=== PATIENT | female | born 1935 | race Caucasian/White ===

== ENCOUNTER 2018-06-30 01:09 | Inpatient (IN) | payer MEDICARE, OTHER ==
[~2018-06-30] VITALS: Ht 157.5 cm; Wt 111.1 kg
[~2018-06-30 01:09] MED LIST: ACET325 PO; ALBU90OI INH; ALLO100 PO; ALUMAG30SU PO; AMLO10 PO; AMLO5 PO; AMOCLA875 PO; AMPI500 PO; ASCO500 PO; Allopurinol100 MG PO; BUTRANS1 EAC1 TOP; Baclofen20 MG PO; Budeprion Sr150 MG PO; CALCAVITD PO; CEPH500 PO; CHOL10002 PO; CIPR500 PO; CLIN300 PO; CLOB.05TC TOP; COLL250TO TOP; CRANBERRY250 MG PO; Celebrex200 MG PO; Cranberry300 MG PO; DIPH50 PO; DOCU100 PO; DOXY100T53 PO; Econazole Nitra15 GM TOP; FERR325 PO; FEXPSEER PO; FLUC150A PO; FURO40 PO; Florastor250 MG PO; GABA300 PO; GABA600 PO; GUAI600T33 PO; HYDCHL12.5 PO; IBUP400 PO; IPRA.03NI; Ipratropium Bro30 ML; LEVFLO250 PO; LEVFLO500 PO; LEVO750 PO; MAGOXI400 PO; METO25ER PO; METR500 PO; MULVIT PO; MULVITMIND PO; Micro-K10 MEQ PO; Milk Of Ma400 MG/5 M PO; NITR100CA PO; NYST100P TOP; Nystatin15 GM TOP; OMEP20ER PO; OXYC5 PO; OXYM.05NI; POTCHL10ER PO; PREDNICARBATE TOP; Prilosec Otc20 MG PO; QUET25 PO; SACC250C PO; SERT100 PO; SERT50 PO; SPIR50 PO; SUCR1 PO; Synthroid/Lev0.05 MG PO; TRAM50 PO; TRAN4 PO; VITAMIN D-32000 UNIT PO; VOLTAREN TOP; Voltaren100 GM TOP; XARELTO15 MG PO; Zantac150 MG PO
[2018-06-30 02:40] LABS: Alanine Aminotransfer (ALT/SGP 24 U/L (12-78); Albumin, Blood 2.8 g/dL (3.4-5.0); Albumin/Globulin Ratio 0.6 (0.8-1.8); Alk Phos 96 U/L (50-136); Anion Gap 8 mmol/L (6-16); Aspartate Aminotrans (AST/SGOT 20 U/L (12-37); Blood Urea Nitrogen 18 mg/dL (8-24); CO2, Blood 26 mmol/L (21-32); Calcium, Blood 9.8 mg/dL (8.5-10.1); Chloride, Blood 102 mmol/L (98-108); Globulin, Blood 4.5 g/dL (2.2-4.0); Glomerular Filtration Rate >60 (60-); Glucose, Blood 152 mg/dL (70-99); Potassium, Blood 4.5 mmol/L (3.5-5.5); Sodium, Blood 136 mmol/L (136-145); Total Protein, Blood 7.3 g/dL (6.4-8.2); Troponin I <0.015 ng/mL (0.000-0.040)
[2018-06-30 02:58] LABS: BASOPHILS ABSOLUTE AUTO 0.05 K/mm3 (0.00-0.23); BASOPHILS PERCENT AUTO 0 % (0-2); EOSINOPHILS ABSOLUTE AUTO 0.08 K/mm3 (0.00-0.68); EOSINOPHILS PERCENT AUTO 0 % (0-6); Hematocrit 44.1 % (33.0-51.0); Hemoglobin 14.3 g/dL (11.5-16.0); IMMATURE GRAN ABSOLUTE AUTO 0.36 K/mm3 (0.00-0.10); IMMATURE GRAN PERCENT AUTO 2 % (0-1); LYMPHOCYTES ABSOLUTE AUTO 1.73 K/mm3 (0.84-5.20); LYMPHOCYTES PERCENT AUTO 9 % (21-46); MONOCYTES ABSOLUTE AUTO 1.47 K/mm3 (0.16-1.47); MONOCYTES PERCENT AUTO 8 % (4-13); Mean Corpuscular HGB Conc 32.4 g/dL (31.5-36.5); Mean Corpuscular Volume 96 fL (80-100); NEUTROPHILS ABSOLUTE AUTO 15.79 K/mm3 (1.96-9.15); NEUTROPHILS PERCENT AUTO 81 % (41-73); Platelet Count 352 K/mm3 (150-400); RDW Standard Deviation 46.3 fL (35.1-46.3); Red Blood Cell Count 4.61 M/mm3 (3.80-5.20); White Blood Cell Count 19.48 K/mm3 (4.00-11.30)
[2018-06-30 03:31] LABS: Source, Urine Urostomy Bag
[2018-06-30 03:33] LABS: Appearance, Urine Turbid (Clear); Bilirubin, Urine Neg (Neg); Blood, Urine 4+ (Neg); Color, Urine Brown (P-Yellow); Glucose Qualitative, Urine Neg (Neg); Ketones, Urine 1+ (Neg); Leukocyte Esterase, Urine 3+ (Neg); Nitrite, Urine Pos (Neg); Protein, Urine 3+ (Neg); Urobilinogen, Urine 1+ (Normal)
[2018-06-30 03:39] LABS: Bacteria Many /hpf; Squamous Epithelial Cells Not Seen /hpf (Few)
[2018-06-30 03:40] LABS: Triple Phosphate Crystals Few /hpf
[2018-06-30] MEDS ORDERED: OXYC5 PO (05:23)
--- NOTE | 2018-06-30 05:59 | NUR ---
ADMIT/SUMMARY PT ARRIVED TO ICU 10 AT 0410 VIA ER BED. PT IS AWAKE, ALERT, AND ORIENTED, BUT FORGETFUL. PT DENIES PAIN, NAUSEA, OR SOB AT THIS TIME. PT WITH HX OF PARAPLEGIA AND CHRONIC SUPRA PUBIC CATH. PT ON 4L O2 NC. VITAL SIGNS STABLE, PT IN A FIB WITH RATE CONTROLED WITH CARDIZEM GTT AT 15 MG/HR. NS STARTED AT 75 ML/HR. SUPRA PUBIC CATH REPLACED WITH NEW CATHETER. PT WITH NO MOVEMENT OR SENSATION FROM THE HIPS DOWN. PT WITH FOOT BOOTS/HEEL PROTECTORS ON. PT WITH MULTIPLE WOUNDS, ABRASIONS, AND REDDENED AREAS. SEE WOUND PHOTOS IN CHART FOR MORE INFO. PT DAUGHTERS IN AT BEDSIDE. WILL CONTINUE TO MONITOR AND REPORT OFF TO ONCOMING RN.
[2018-06-30 06:52] LABS: Adenovirus Not Detected (NOT DETECT); Bordetella pertussis Not Detected (NOT DETECT); Chlamydophila pneumoniae Not Detected (NOT DETECT); Coronavirus 229E Not Detected (NOT DETECT); Coronavirus HKU1 Not Detected (NOT DETECT); Coronavirus NL63 Not Detected (NOT DETECT); Coronavirus OC43 Not Detected (NOT DETECT); Human Metapneumovirus Not Detected (NOT DETECT); Human Rhinovirus/Enterovirus Not Detected (NOT DETECT); Influenza A Not Detected (NOT DETECT); Influenza A/2009-H1 Not Detected (NOT DETECT); Influenza A/H1 Not Detected (NOT DETECT); Influenza A/H3 Not Detected (NOT DETECT); Influenza B Not Detected (NOT DETECT); Mycoplasma pneumoniae Not Detected (NOT DETECT); Parainfluenza Virus 1 Not Detected (NOT DETECT); Parainfluenza Virus 2 Not Detected (NOT DETECT); Parainfluenza Virus 3 Detected (NOT DETECT); Parainfluenza Virus 4 Not Detected (NOT DETECT); Respiratory Syncytial Virus Not Detected (NOT DETECT)
--- NOTE | 2018-06-30 09:20 | NUR ---
ASSUMED CARE OF PT @ 0700. PT LYING IN BED WATCHING TV. PT ALERT AND ORIENTED. HEART SOUNDS IRREGULAR. HEART MONITOR SHOWED IRREGULAR RYTHMN. PT ON 4L O2. LUNG SOUNDS DIMINISHED ALL OVER, WITH EXPIRATORY RUB R LUNG. PT HAS A NONPRODUCTIVE WET COUGH. GI WNL. SUPRAPUBIC CATHETER CHANGED DUE TO LACK OF DRAINAGE. URINE THICK, DARK, FOWEL SMELLING WITH SEDIMENT. VARIOUS WOUNDS ON PT TOES. VARIES BRUSING ON PT ARMS. RED AREA ON L BUTTOCK. PT C/O PAIN IN L ARM. PT FRIENDLY AND COOROPERATIVE. PT IS ANXIOUS AND REPEATIVLY ASKS TO CALL HER DAUGHTER. WILL CONTINUE TO MONITOR, BED IN LOWEST POSITION, CALL LIGHT WITHIN REACH.
[2018-06-30 10:45] LABS: Source, Urine Catheter
[2018-06-30 11:11] LABS: Appearance, Urine Hazy (Clear); Bilirubin, Urine Neg (Neg); Blood, Urine 5+ (Neg); Color, Urine Yellow (P-Yellow); Glucose Qualitative, Urine Neg (Neg); Ketones, Urine Neg (Neg); Leukocyte Esterase, Urine 3+ (Neg); Nitrite, Urine Neg (Neg); Protein, Urine 3+ (Neg); Urobilinogen, Urine NORM (Normal)
[2018-06-30 11:29] LABS: Red Blood Cells, Urine 50-100 /hpf (0-2)
[2018-06-30 11:30] LABS: Bacteria Mod /hpf; Squamous Epithelial Cells Mod /hpf (Few)
--- NOTE | 2018-06-30 15:55 | NUR ---
TRANSFER NOTE RESPIRATORY AND CARDIAC STATUS UNCHANGED. DILTIAZEM GTT CONTINUES TO INFUSE @ 10ML/HR (DECREASED FROM 15ML/HR). HR 80S, AFIB. SUPRAPUBIC CATHETER CHANGED TO 18F LATEX-FREE CATH, DRAINING WELL. UA SENT TO LAB PER PROTOCOL. SEEN BY PMD. NEW DOCTORS ORDERS RECEIVED. PCU BED ASSIGNMENT RECEIVED, REPORT GIVEN TO ACCEPTING RN. WILL TRANFER PATIENT VIA BED. CALL PLACED TO DAUGHTER FOR NOTIFICATION.
--- NOTE | 2018-06-30 16:45 | NUR ---
TRANSFER NOTE PT RECEIVED FROM ICU. TRANSFERED TO BED. C/O 07/26 NECK / SHOULDER / ARM PAIN, MEDICATED WITH PRN PAIN MEDS. PT STATES PAIN MEDS HELPED. CARDIZEM GTT CONTINUED AT 10 ML/HR, AFIB RATE 80s ON TELEMETRY, WILL CONTINUE TO MONITOR.
[2018-07-01 03:53] LABS: Base Excess Venous 0 mmol/L; Bicarbonate Venous 24.1 mmol/L (24.0-30.0); PCO2 Venous 38.9 mmHg (38-42); PO2 Venous 45.7 mmHg (38-42); pH Blood Venous 7.41 (7.34-7.37)
[2018-07-01 04:09] LABS: BASOPHILS ABSOLUTE AUTO 0.02 K/mm3 (0.00-0.23); BASOPHILS PERCENT AUTO 0 % (0-2); EOSINOPHILS ABSOLUTE AUTO 0.01 K/mm3 (0.00-0.68); EOSINOPHILS PERCENT AUTO 0 % (0-6); Hematocrit 43.6 % (33.0-51.0); Hemoglobin 13.9 g/dL (11.5-16.0); IMMATURE GRAN PERCENT AUTO 4 % (0-1); LYMPHOCYTES ABSOLUTE AUTO 1.22 K/mm3 (0.84-5.20); LYMPHOCYTES PERCENT AUTO 11 % (21-46); MONOCYTES ABSOLUTE AUTO 0.29 K/mm3 (0.16-1.47); MONOCYTES PERCENT AUTO 3 % (4-13); Mean Corpuscular HGB 30.2 pg (26.0-34.0); Mean Corpuscular HGB Conc 31.9 g/dL (31.5-36.5); Mean Corpuscular Volume 95 fL (80-100); Mean Platelet Volume 9.9 fL (9.1-12.4); NEUTROPHILS ABSOLUTE AUTO 8.92 K/mm3 (1.96-9.15); NEUTROPHILS PERCENT AUTO 82 % (41-73); Platelet Count 331 K/mm3 (150-400); RDW Coefficient Variation 12.9 % (11.7-14.2); RDW Standard Deviation 44.9 fL (35.1-46.3); White Blood Cell Count 10.86 K/mm3 (4.00-11.30)
[2018-07-01 04:32] LABS: Anion Gap 7 mmol/L (6-16); Blood Urea Nitrogen 22 mg/dL (8-24); Bun/Creatinine Ratio 41.8 (12.0-20.0); CO2, Blood 26 mmol/L (21-32); Calcium, Blood 9.8 mg/dL (8.5-10.1); Chloride, Blood 105 mmol/L (98-108); Creatinine, Blood 0.53 mg/dL (0.40-1.00); Glomerular Filtration Rate >60 (60-); Glucose, Blood 147 mg/dL (70-99); Potassium, Blood 4.6 mmol/L (3.5-5.5); Sodium, Blood 138 mmol/L (136-145)
[2018-07-01 04:39] LABS: Free Thyroxine 1.35 ng/dL (0.70-1.60); Triiodothyronine, Free 1.23 pg/mL (2.18-3.98)
--- NOTE | 2018-07-01 05:23 | NUR ---
ASSSUMED CARE FROM ALEX RUSH AND SN SARITA AT APPROXIMATELY 1900. PT ALERT AND ORIENTED TO SELF AND FAMILY, W/ FAMILY PRESENT UPON ORIENTING TO THE UNIT; BECOMING CONFUSED AT TIMES; 4 LPM NC; AFIB W/ HR IN 80'S W/ CARDIZEM DRIP; PT'S CHRONIC SUPRAPUBIC CATHETER IS PATENT AND DRAINING PB URINE; PT RESTED EASILY IN BETWEEN DISRUPTIONS; PT HAS NUMEROUS REDDENED AREAS, REPOSITIONING, AND BARRIER CREAMS USED TO PROTECT FURTHER BREAKDOWN; WILL CONTINUE TO ASSESS AND MONITOR UNTIL HANDOFF TO DAY SHIFT RN.
--- NOTE | 2018-07-01 06:21 | NUR ---
ASSSUMED CARE FROM ALEX RUSH AND SN SARITA AT APPROXIMATELY 1900. PT ALERT AND ORIENTED TO SELF, FAMILY, AND ; BECOMING CONFUSED AT TIMES; 4 LPM NC; AFIB W/ HR IN 80'S W/ CARDIZEM DRIP; PT PARAPLEGIC; HOME WATSON BOOTS IN PLACE; PT'S CHRONIC SUPRAPUBIC CATHETER IS PATENT AND DRAINING PB URINE; LISSETT VISITED AND WAS VERY ATTENTIVE; IV INFILTRATED AT SHIFT CHANGE, NEW IV PLACED BY ICU CHARGE NURSE ;PT RESTED EASILY IN BETWEEN DISRUPTIONS; PT HAS NUMEROUS REDDENED AREAS, REPOSITIONING, AND BARRIER CREAMS USED TO PROTECT FURTHER BREAKDOWN; CALL LIGHT IN PLACE; BED IN LOWEST POSITION; WILL CONTINUE TO ASSESS AND MONITOR UNTIL HANDOFF TO DAY SHIFT RN.
--- NOTE | 2018-07-01 13:27 | NUR ---
Pleasant, conversant lady who is often forgetful of details and ongoing events in detail. ONly specific needs and requests this morning were regarding repositioning and changing her pillows out. Heart rate has been controlled under 100 bpm, and the cardizem gtt was turned off 90 minutes after the administration of oral metoprolol, and at that time her heart rate was 95 bpm, afib. At present her rate is holding at 99 bpm, still a fib.
--- NOTE | 2018-07-02 02:05 | NUR ---
ASSUMED CARE OF PATIENT AT APPROXIMATELY 1915 FROM IRKKI Julio RN. PATIENT ALERT AND ORIENTED TO SELF, FAMILY AND ; FORGETFUL AT TIMES. PATIENT REPORTS CHRONIC PAIN IN BACK, SHOULDERS AND NECK FROM REPOSISTIONING. PATIENT ON AIR MATTRESS BED; REFUSES TO BE TURNED AT TIMES; REPORTS SHE FEARS SHE MAY MESS UP HER BACK MORE. PATIENT HAS CHRONIC NUMBNESS AND TINGLING; PARAPALEGIC; HOME BOOTS ON FOR HEEL PROTECTION; FOOT HALO IN PLACE. PATIENT HAS EXCORIATIONS ON BACK; GROIN AND COCCYX. AFIB ON TELE; HEART RATE AVERAGING UP TO 115; OXYGEN SATURATION ABOVE 90% ON HOME DOSE OF O2 4LPM VIA OXYMIZER. PIV S/L. PATIENT CURRENTLY RESTING IN BED; CALL LIGHT IN REACH; BED IN LOWEST POSISTION; WILL CONTINUE TO MONITOR AND ASSESS UNTIL END OF SHIFT.
--- NOTE | 2018-07-02 06:30 | NUR ---
NO ACUTE CHANGES TO REPORT. VSS. PATIENT SLEPT APPROXIMATELY 8 HOURS LAST NIGHT. HEART RATE 90-100'S. WILL CONTINUE TO MONITOR AND ASSESS UNTIL END OF SHIFT.
--- NOTE | 2018-07-02 18:54 | NUR ---
PT HAD A GOOD DAY, AFFECT WAS PLEASANT, SHE IS ABLE TO EXPRESS NEEDS AND CONCERNS APPROPRIATELY. PT DAUGHTER AT BEDSIDE FOR PART OF TODAY. DR. PETER CHANGED HER ROXICODONE ORDER TO 5 MG PER PATIENT REQUEST. PT HAS DENIED PAIN T/O AND DID NOT WANT ANY PAIN MED COVERAGE DURING THE SHIFT. PT REFUSED REPOSITIONING AND EXPRESSED CONTENTMENT WITH AIR BED MOVEMENT, HELPED TO POSITION PILLOWS TO PATIENTS SATISFACTION. TRANSFER ORDER PLACED FOR PT TO GO TO MEDICAL, GAVE REPORT TO RN FOR ROOM 331.
--- NOTE | 2018-07-02 19:01 | NUR ---
PATIENT ARIVED TO UNIT IN BED AT 1855. A&O X4. DENIES ANY PAIN OR SOB. O2 @ 3.5L NC. RN WILL GIVE REPORT TO EDUCATION AND OUTREACH COORDINATOR NURSE.
[2018-07-03] MEDS ORDERED: BUPRENORPHINE1 EAC2 TD (03:24)
--- NOTE | 2018-07-03 05:42 | NUR ---
pt transferred to medical floor from pcu at shift change. pt has multiple requests and after staff spend time with her she asks to have pillows removed and repositioned again. on 4 l nc 2.5 to 3 l baseline. she is positive for Haemophilis influenza and staph aur in sputum and staph aur in blood culture. On antibiotics to treat. uses bup. transdermal patch chnge q 7 days and requests we change it. DTR to bring in patch this am as 7 days was yesterday. She took oxycodone 5 mg x 1 for co neck and back pain. has caregivers DTR and Grandson provide care. PT has paraplegia and refused q 2 hour turns. on alternating air bed to relieve pressure.
--- NOTE | 2018-07-03 16:49 | NUR ---
DRESSINGS APPLIED TO BUTTOCKS AREA SMALL SKIN BREAKDOWN NOTED UPON MORNING ASSESSMENT. MEPLIX APPLIED AND PATIENT ENCOURAGED TO ALLOW STAFF TO TURN HER Q2. NO ACUTE CHANGES .
--- NOTE | 2018-07-04 02:19 | NUR ---
PT continues to be intermittantly agitated and demanding. RN had been in room giving mucinex and PT said she dislikes turning and doesn't understand why we need to reposition her versus just slightly shifting with 1 pillow moved. She became very irritable with COSMETOLOGIST who was turning PT with second COSMETOLOGIST. She said she has not been getting attention when she requests it as soon as she requests it. Clarified that she had not requested additional turning or repositioning when this RN was in room to give oral med and had refused pain med repeatedly. Reoriented and repositioned and will medicate for pain if PT will accept rx.
[2018-07-04 04:53] LABS: BASOPHILS ABSOLUTE AUTO 0.02 K/mm3 (0.00-0.23); BASOPHILS PERCENT AUTO 0 % (0-2); EOSINOPHILS ABSOLUTE AUTO 0.09 K/mm3 (0.00-0.68); EOSINOPHILS PERCENT AUTO 1 % (0-6); Hematocrit 44.6 % (33.0-51.0); IMMATURE GRAN ABSOLUTE AUTO 0.07 K/mm3 (0.00-0.10); IMMATURE GRAN PERCENT AUTO 1 % (0-1); LYMPHOCYTES ABSOLUTE AUTO 1.89 K/mm3 (0.84-5.20); LYMPHOCYTES PERCENT AUTO 15 % (21-46); MONOCYTES ABSOLUTE AUTO 0.64 K/mm3 (0.16-1.47); MONOCYTES PERCENT AUTO 5 % (4-13); Mean Corpuscular HGB 30.4 pg (26.0-34.0); Mean Corpuscular HGB Conc 31.4 g/dL (31.5-36.5); Mean Corpuscular Volume 97 fL (80-100); Mean Platelet Volume 9.8 fL (9.1-12.4); NEUTROPHILS ABSOLUTE AUTO 9.77 K/mm3 (1.96-9.15); NEUTROPHILS PERCENT AUTO 78 % (41-73); Platelet Count 327 K/mm3 (150-400); RDW Coefficient Variation 12.7 % (11.7-14.2); RDW Standard Deviation 45.5 fL (35.1-46.3); Red Blood Cell Count 4.61 M/mm3 (3.80-5.20); White Blood Cell Count 12.48 K/mm3 (4.00-11.30)
[2018-07-04 05:34] LABS: Albumin, Blood 2.8 g/dL (3.4-5.0); Anion Gap 7 mmol/L (6-16); Blood Urea Nitrogen 31 mg/dL (8-24); Bun/Creatinine Ratio 46.1 (12.0-20.0); CO2, Blood 25 mmol/L (21-32); Calcium, Blood 9.6 mg/dL (8.5-10.1); Chloride, Blood 107 mmol/L (98-108); Creatinine, Blood 0.67 mg/dL (0.40-1.00); Glomerular Filtration Rate >60 (60-); Glucose, Blood 122 mg/dL (70-99); Magnesium, Blood 2.1 mg/dL (1.6-2.4); Phosphorus, Blood 3.5 mg/dL (2.5-4.9); Potassium, Blood 4.4 mmol/L (3.5-5.5); Sodium, Blood 139 mmol/L (136-145)
--- NOTE | 2018-07-04 18:24 | NUR ---
NO ACUTE CHANGES. PATIENT PLEASANT AND COOPERATIVE THIS SHIFT. CALL LIGTH WITHIN REACH.
--- NOTE | 2018-07-05 07:28 | NUR ---
NOC SHIFT SUMMARY PT HAS BEEN PLEASANT AND COOPERATIVE WITH CARE THIS NIGHT. HAS BEEN TURNED [id number]. VSS. NO ACUTE CHANGES NOTED THIS NIGHT. APPEARS IN NO ACUTE DISTRESS. REPORT TO ONCOMING RN.
[2018-07-05] MEDS ORDERED: CEFU500T30 PO (12:20)
[2018-07-05] MEDS ORDERED: CEPACOL SORE T1 EACH MM (12:20)
[2018-07-05] MEDS ORDERED: LIOT5 PO (12:21)
[2018-07-05] MEDS ORDERED: ALBU3IS INH (12:22)
[2018-07-05] MEDS ORDERED: PRED20 PO (12:24)
[2018-07-05] MEDS ORDERED: Zylet Eye Drops5 ML UD (12:27)
--- NOTE | 2018-07-05 19:10 | NUR ---
SHIFT SUMMARY/ DISCHARGE SUMMARY PT AXO, PLEASANT AND COOPERATIVE WITH CARE. UP WITH LIFT TO [facility]. PT DISCHARGED TO HOME WITH DAUGHTER/ CAREGIVER PRESENT. PT LEFT ROOM AT 1900 WITH TRANSPORTER PRESENT. NURSE EDUCATED DAUGHTER ABOUT DC INSTRUCTIONS. ALL QUESTIONS ANSWERED. DAUGHTER PICKED UP PRESCRIPTIONS PRIOR TO DC AND HAS THEM AT HOME.
== END 2018-07-05 18:44 | disposition home or self-care (01) | DRG 871 ==
LOC: ER 01:09 → ICUW 01:10 → PCU 16:19 → MEDS 07-02 18:27 → EDPENDDISTM 07-05 10:19 → EDPENDDISDT 07-05 10:19 → ENPENDDIS 07-05 10:19 → MEDS 07-05 18:44
PROVIDERS: Emergency Medicine; Internal Medicine; ADMIT Internal Medicine
DX: A41.01 Sepsis due to Methicillin susceptible Staphylococcus aureus (principal); J96.21 Acute and chronic respiratory failure with hypoxia; J15.20 Pneumonia due to staphylococcus, unspecified; J15.212 Pneumonia due to Methicillin resistant Staphylococcus aureus; N39.0 Urinary tract infection, site not specified; G82.20 Paraplegia, unspecified; N31.9 Neuromuscular dysfunction of bladder, unspecified; G89.29 Other chronic pain; F41.9 Anxiety disorder, unspecified; E86.0 Dehydration; Z79.891 Long term (current) use of opiate analgesic; Z86.73 Personal history of transient ischemic attack (TIA), and cerebral infarction without residual deficits; Z87.891 Personal history of nicotine dependence; Z99.81 Dependence on supplemental oxygen; I48.2 Chronic atrial fibrillation; R73.9 Hyperglycemia, unspecified; Z74.01 Bed confinement status; E66.01 Morbid (severe) obesity due to excess calories; B35.1 Tinea unguium; B96.3 Hemophilus influenzae [H. influenzae] as the cause of diseases classified elsewhere; L89.301 Pressure ulcer of unspecified buttock, stage 1
CPT/HCPCS: 36415; 51702; 71045; 80048; 80053; 80069; 81001; 82803; 82947; 83605; 83735; 83880; 84145; 84439; 84481; 84484; 85025; 87040; 87070; 87077; 87086; 87147; 87185; 87186; 87205; 87486; 87581; 87633; 87798; 93005; 93010; 94640; 94760; 94761; 96365; 96367; 99285-25; J0696; J1956; J2543; J2930; J3370; J7030; J7050; J7512

== ENCOUNTER 2018-08-12 21:38 | Inpatient (IN) | payer MEDICARE, OTHER ==
[~2018-08-12] VITALS: Ht 160 cm; Wt 129.3 kg
[~2018-08-12 21:38] MED LIST changes: +ALBU3IS INH; +BUPRENORPHINE1 EAC2 TD; +CEFU500T30 PO; +CEPACOL SORE T1 EACH MM; +FERSU300 PO; +LIOT5 PO; -NYST100P TOP; +Nyamyc15 GM TOP; +PRED20 PO; +Zylet Eye Drops5 ML UD
[2018-08-12] MEDS ORDERED: Calcium 600+D1 EAC2 PO (22:01)
[2018-08-12] MEDS ORDERED: Hair, Skin & N1 EACH PO (22:04)
[2018-08-12 22:16] LABS: BASOPHILS ABSOLUTE AUTO 0.06 K/mm3 (0.00-0.23); BASOPHILS PERCENT AUTO 0 % (0-2); EOSINOPHILS ABSOLUTE AUTO 0.03 K/mm3 (0.00-0.68); EOSINOPHILS PERCENT AUTO 0 % (0-6); Hematocrit 39.5 % (33.0-51.0); Hemoglobin 12.7 g/dL (11.5-16.0); IMMATURE GRAN ABSOLUTE AUTO 0.14 K/mm3 (0.00-0.10); IMMATURE GRAN PERCENT AUTO 1 % (0-1); LYMPHOCYTES ABSOLUTE AUTO 0.66 K/mm3 (0.84-5.20); LYMPHOCYTES PERCENT AUTO 3 % (21-46); MONOCYTES ABSOLUTE AUTO 1.18 K/mm3 (0.16-1.47); MONOCYTES PERCENT AUTO 6 % (4-13); Mean Corpuscular HGB Conc 32.2 g/dL (31.5-36.5); Mean Corpuscular Volume 93 fL (80-100); Mean Platelet Volume 9.8 fL (9.1-12.4); NEUTROPHILS ABSOLUTE AUTO 17.31 K/mm3 (1.96-9.15); NEUTROPHILS PERCENT AUTO 89 % (41-73); Platelet Count 433 K/mm3 (150-400); RDW Coefficient Variation 13.4 % (11.7-14.2); RDW Standard Deviation 46.3 fL (35.1-46.3); Red Blood Cell Count 4.24 M/mm3 (3.80-5.20); White Blood Cell Count 19.38 K/mm3 (4.00-11.30)
[2018-08-12 22:34] LABS: Alanine Aminotransfer (ALT/SGP 11 U/L (12-78); Albumin, Blood 2.3 g/dL (3.4-5.0); Albumin/Globulin Ratio 0.5 (0.8-1.8); Alk Phos 98 U/L (50-136); Anion Gap 10 mmol/L (6-16); Aspartate Aminotrans (AST/SGOT 15 U/L (12-37); Bilirubin, Total 0.5 mg/dL (0.1-1.0); Blood Urea Nitrogen 10 mg/dL (8-24); Bun/Creatinine Ratio 23.9 (12.0-20.0); CO2, Blood 26 mmol/L (21-32); Chloride, Blood 94 mmol/L (98-108); Creatinine, Blood 0.42 mg/dL (0.40-1.00); Globulin, Blood 4.4 g/dL (2.2-4.0); Glomerular Filtration Rate >60 (60-); Glucose, Blood 121 mg/dL (70-99); Potassium, Blood 4.6 mmol/L (3.5-5.5); Sodium, Blood 130 mmol/L (136-145); Total Protein, Blood 6.7 g/dL (6.4-8.2)
[2018-08-12 23:48] LABS: Source, Urine Catheter
[2018-08-12 23:51] LABS: Bilirubin, Urine Neg (Neg); Blood, Urine 2+ (Neg); Glucose Qualitative, Urine Neg (Neg); Ketones, Urine 1+ (Neg); Leukocyte Esterase, Urine 3+ (Neg); Nitrite, Urine Pos (Neg); Protein, Urine 2+ (Neg); Urobilinogen, Urine 1+ (Normal)
[2018-08-12 23:55] LABS: Appearance, Urine Turbid (Clear); Color, Urine Yellow (P-Yellow)
[2018-08-12 23:57] LABS: Amorphous Heavy (0-Heavy); Bacteria Many /hpf; Red Blood Cells, Urine 0-2 /hpf (0-2); Squamous Epithelial Cells Many /hpf (Few); White Blood Cells, Urine TNTC /hpf (0-5)
[2018-08-13 01:10] LABS: International Normalized Ratio 1.24; Prothrombin Time Results 12.9 Sec (9.7-11.5)
[2018-08-13 02:08] LABS: Hematocrit 38.4 % (33.0-51.0); Hemoglobin 12.2 g/dL (11.5-16.0); Mean Corpuscular HGB 29.8 pg (26.0-34.0); Mean Corpuscular HGB Conc 31.8 g/dL (31.5-36.5); Mean Corpuscular Volume 94 fL (80-100); Mean Platelet Volume 9.6 fL (9.1-12.4); Platelet Count 386 K/mm3 (150-400); RDW Coefficient Variation 13.3 % (11.7-14.2); RDW Standard Deviation 45.6 fL (35.1-46.3); Red Blood Cell Count 4.09 M/mm3 (3.80-5.20); White Blood Cell Count 19.69 K/mm3 (4.00-11.30)
[2018-08-13 02:22] LABS: Alanine Aminotransfer (ALT/SGP 9 U/L (12-78); Albumin, Blood 2.1 g/dL (3.4-5.0); Albumin/Globulin Ratio 0.5 (0.8-1.8); Alk Phos 87 U/L (50-136); Anion Gap 8 mmol/L (6-16); Aspartate Aminotrans (AST/SGOT 9 U/L (12-37); Bilirubin, Total 0.6 mg/dL (0.1-1.0); Blood Urea Nitrogen 9 mg/dL (8-24); Bun/Creatinine Ratio 20.2 (12.0-20.0); CO2, Blood 24 mmol/L (21-32); Calcium, Blood 8.3 mg/dL (8.5-10.1); Chloride, Blood 101 mmol/L (98-108); Creatinine, Blood 0.45 mg/dL (0.40-1.00); Globulin, Blood 4.1 g/dL (2.2-4.0); Glomerular Filtration Rate >60 (60-); Glucose, Blood 139 mg/dL (70-99); Potassium, Blood 3.9 mmol/L (3.5-5.5); Sodium, Blood 133 mmol/L (136-145); Total Protein, Blood 6.2 g/dL (6.4-8.2)
--- NOTE | 2018-08-13 08:00 | NUR ---
pt laying in bed awake a/ox3, pleasant and coopertive with care, follows commands well, denies pain at this time, lungs are course in upperfields, dim in bases, resp even and unlabored, weak cough effort, states she doesn't have the stomach muscles to give a good cough, sounds wet in the bronchial area. hrirr, tele in place running afib per monitor, see strip, +1 edema noted to b/l le, pp faint, cap refill <3sec, vs stable, afebrile, iv site is clear and patent, btx4, abd large soft nontender, voids via suprapubic cath, cath looks discolored, pt has multiple wounds, back is very red, has very strong odor, nystatin applied to yeast areas, moves upper ext unable to move lower ext or feel from the waist down, gila, call light in reach.
--- NOTE | 2018-08-13 08:02 | NUR ---
PCU ADMIT / SHIFT SUMMARY PT BROUGHT TO PCU RM 07 FROM THE ER BY SHYANN @ APPROX 0140. PT A&O X4, PLEASANT AND COOPERATIVE. PT'S DAUGHTER AND GRANDSON AT BEDSIDE. PT'S DAUGHTER IS PT'S POA, AND CAREGIVER. HISTORY PROVIDED BY PT AND DAUGHTER. PT SLID OVER FROM [place] TO PCU BED D/T PT PARAPLEGIA. PT STATES INABILITY TO FEEL ANYTHING FROM MID WASTE DOWN. SKIN BREAK DOWN NOTED TO PT'S BACK, R BUTTOCKS, GROIN, BILAT HEELS & TOES. SEE PHOTOS IN CHART. SUPRA PUBIC CATH IN PLACE DRAINING YELLOW URINE. PT'S DAUGHTER STATES CATH BEING CHANGED APPROX JULY 10, 2018. Q2H REPOSITIONING W/ MAX ASSIST BY STAFF. REPORT GIVEN TO DAY SHIFT RN.
[2018-08-13 08:34] LABS: Adenovirus Not Detected (NOT DETECT); Bordetella pertussis Not Detected (NOT DETECT); Chlamydophila pneumoniae Not Detected (NOT DETECT); Coronavirus 229E Not Detected (NOT DETECT); Coronavirus HKU1 Not Detected (NOT DETECT); Coronavirus NL63 Not Detected (NOT DETECT); Coronavirus OC43 Not Detected (NOT DETECT); Human Metapneumovirus Not Detected (NOT DETECT); Human Rhinovirus/Enterovirus Not Detected (NOT DETECT); Influenza A Not Detected (NOT DETECT); Influenza A/2009-H1 Not Detected (NOT DETECT); Influenza A/H1 Not Detected (NOT DETECT); Influenza A/H3 Not Detected (NOT DETECT); Influenza B Not Detected (NOT DETECT); Mycoplasma pneumoniae Not Detected (NOT DETECT); Parainfluenza Virus 1 Not Detected (NOT DETECT); Parainfluenza Virus 2 Not Detected (NOT DETECT); Parainfluenza Virus 3 Not Detected (NOT DETECT); Parainfluenza Virus 4 Not Detected (NOT DETECT); Respiratory Syncytial Virus Not Detected (NOT DETECT)
--- NOTE | 2018-08-13 12:44 | NUR ---
pt resting quietly, she states she is doing ok, she has been repositioned. no needs or complaints at this time. call light in reach.
--- NOTE | 2018-08-13 18:25 | NUR ---
pt has been sleeping when left undisturbed, she has been turned throughout the day. she reports she is comfortable, no needs or complaints. call light in reach.
[2018-08-13 23:23] LABS: Vancomycin, Trough 24.2 ug/mL (5.0-10.0)
[2018-08-14 03:59] LABS: BASOPHILS ABSOLUTE AUTO 0.06 K/mm3 (0.00-0.23); BASOPHILS PERCENT AUTO 1 % (0-2); EOSINOPHILS ABSOLUTE AUTO 0.27 K/mm3 (0.00-0.68); EOSINOPHILS PERCENT AUTO 3 % (0-6); Hematocrit 38.6 % (33.0-51.0); Hemoglobin 11.9 g/dL (11.5-16.0); IMMATURE GRAN ABSOLUTE AUTO 0.05 K/mm3 (0.00-0.10); IMMATURE GRAN PERCENT AUTO 1 % (0-1); LYMPHOCYTES ABSOLUTE AUTO 1.22 K/mm3 (0.84-5.20); LYMPHOCYTES PERCENT AUTO 14 % (21-46); MONOCYTES ABSOLUTE AUTO 0.74 K/mm3 (0.16-1.47); MONOCYTES PERCENT AUTO 8 % (4-13); Mean Corpuscular HGB 29.2 pg (26.0-34.0); Mean Corpuscular HGB Conc 30.8 g/dL (31.5-36.5); Mean Corpuscular Volume 95 fL (80-100); Mean Platelet Volume 9.4 fL (9.1-12.4); NEUTROPHILS ABSOLUTE AUTO 6.58 K/mm3 (1.96-9.15); NEUTROPHILS PERCENT AUTO 74 % (41-73); Platelet Count 355 K/mm3 (150-400); RDW Coefficient Variation 13.3 % (11.7-14.2); RDW Standard Deviation 46.5 fL (35.1-46.3); Red Blood Cell Count 4.08 M/mm3 (3.80-5.20); White Blood Cell Count 8.92 K/mm3 (4.00-11.30)
--- NOTE | 2018-08-14 04:25 | NUR ---
18F LATEX FREE SUPRAPUBIC CATH CHANGED USING STERILE TECHNIQUE. LIGHT COLORED YELLOW URINE NITED IN TUBING, TOLERATED WELL. WILL CONTINUE TO MONITOR.
[2018-08-14 04:37] LABS: Anion Gap 7 mmol/L (6-16); Blood Urea Nitrogen 8 mg/dL (8-24); Bun/Creatinine Ratio 20.6 (12.0-20.0); CO2, Blood 26 mmol/L (21-32); Calcium, Blood 8.8 mg/dL (8.5-10.1); Chloride, Blood 105 mmol/L (98-108); Creatinine, Blood 0.39 mg/dL (0.40-1.00); Glomerular Filtration Rate >60 (60-); Glucose, Blood 84 mg/dL (70-99); Potassium, Blood 3.5 mmol/L (3.5-5.5); Sodium, Blood 138 mmol/L (136-145); Vancomycin, Random 22.4 ug/mL
--- NOTE | 2018-08-14 06:55 | NUR ---
SHIFT SUMMARY DENIES PAIN,AT THIS TIME. SUPRAPUBIC CATH CHANGED THIS SHIFT. NO FURHTER NEEDS OR WANTS AT THIS TIME. SAFETY MEASURES IN PLACE. WILL GIVE HAND OFF TO ONCOMING SHIFT USING SBAR.
--- NOTE | 2018-08-14 14:39 | NUR ---
ISHIAL WOUND OLD WOUND DRESSING REMOVED. CALCIUM ALGINATE REMOVED. FOUL ODOR NOTED. MODERATE AMOUNT OF POOLED YELLOW COLORED DRAINAGE NOTED. PALPATED A PROXIMAL TUNNEL. WOUND SPRAYED OUT WITH WOUND REHABILITATION CASE COORDINATOR. WIPED WITH 4X4 SOAKED WITH WOUND REHABILITATION CASE COORDINATOR. GENTLY PATTED DRY WOUND WITH 4X4. PACKED WITH CALCIUM ALGINATE 1.5 PACKAGES. PT DAUGHTER PRESENT DURING WOUND CARE. SHE STARTED CRYING. STATED THAT THE AREA WAS RED WHEN PT WENT HOME FROM LAST VISIT. NO OPEN AREA NOTED. PT HAS A SELF TURNING MATTRESS WITH AIR CHABERS AND PT HAD A WRINKLE AND WAS SUNCK DOWN BETWEEN THE CHAMBERS. THATS WHEN AN OPEN AREA STARTED. CALLED Rashida CARLOS. ORDER RECEIVED FOR SURGICAL CONSULT FOR WOUND CARE. PT ALREADY HAS A CT SCAN DONE AT ADMIT. CONTINUE POT.
--- NOTE | 2018-08-14 17:37 | NUR ---
ELEVATED HR PT DEVELOPED AN ELEVATED HR. SHE HAS CHRONIC AFIB AND TAKES TOPROL XL 75MG DAILY AT HOME. NOT ORDERED. CALLED Rashida CARLOS ORDERS RECEIVED. CONTINUE POT./
[2018-08-14 21:17] LABS: Vancomycin, Random 14.2 ug/mL
--- NOTE | 2018-08-15 07:18 | NUR ---
END OF SHIFT SUMMARY NO ACUTE CHANGES THIS SHIFT. COCCYX ULCER CLEANED THOROUGHLY WITH SKINTEGRITY SPRAY, CALCIUM ALGINATE PACKED INSIDE. MEPILEX PLACED OVER THE TOP. VSS. PT HAS BEEN REPOSITIONED Q2 ON THE [place]. WAS NOT ABLE TO OBTAIN POWERGLIDE THIS SHIFT. DAY NURSE AWARE. MRI SCREEN FAXED TO IMAGING. PT HAS BEEN COOPERATIVE WITH CARE THIS SHIFT. VERY PLEASANT. COOPERATIVE WITH TURNS. FEET REMAIN IN PADDED BOOTS. SUPRAPUBIC CATHETER CLEANED. CALL LIGHT WITHIN REACH. BED IN LOWEST POSITION. REPORT GIVEN TO ONCOMING NURSE.
--- NOTE | 2018-08-15 11:15 | NUR ---
TO MRI CALLED PT DAUGHTER WHO STATED THAT PT IS USUALLY PRE MEDICATED WITH VALIUM FOR MRI. CALLED DR CARLOS. ORDER RECEIVED. MEDICATED WITH PT AGREEMENT FOR MRI. CONTINUE POT.
--- NOTE | 2018-08-15 15:00 | NUR ---
NOTE PT RESTING QUIETLY. AFIB. RATE CONTROLLED. VSS. PT FAMILY LEFT AWHILE AGO. PT DID NOT TOLERATE MRI D/T NOT BEING ABLE TO HOLD HER ARMS ABOVE HER HEAD WHILE IN THE TUBE. NOTIFIED DR RODRÍGUEZ. HE GAVE GUIDEANCE. CALLED Rashida CARLOS. ORDER RECEIVED FROM ORTHO CONSULT POSSIBLE BONE BIOPSY. CONSULT CALLED TO DR DIGGS. NO RESPONCE YET. WOUND CARE DONE EARLIER MORNING. CHECKED DRESSING CD&1 AT 1400 DURING TURN. FOOT BOOTS ON BILATERAL LE. FEET PROPPED WITH PILLOWS TO KEEP LEGS FROM ROLLING SIDE WAYS. CONTINUE POT.
[2018-08-15 21:51] LABS: Vancomycin, Random 15.4 ug/mL
--- NOTE | 2018-08-16 05:53 | NUR ---
END OF SHIFT SUMMARY NO ACUTE CHANGES THIS SHIFT. VSS. HAS BEEN TURNED Q2H. WOUND CLEANSED WITH 4X4, SKINTEGRITY, PACKED WITH CALCIUM ALGINATE AND COVERED WITH MEPILEX. WOUND PRESENT LESS ODIFEROUS AND WITH LESS DRAINAGE THIS SHIFT THAN LAST. PT HAS HAD SOME ABD PAIN, MEDICATED PER EMAR AND REPOSITIONED. PT ALSO GIVEN FOOD SHE THOUGHT IT COULD HAVE BEEN HUNGER PAINS. PT REMAINS IN HEEL PROTECTING BOOTS. PT HAS CONTINUED TO BE COOPERATIVE WITH CARE. WILL CONTINUE TO MONITOR PT UNTIL SHIFT CHANGE. CALL EULA BURRIS. SIDERAILS UP.
--- NOTE | 2018-08-16 12:24 | NUR ---
PRESSURE RELIEVING MATTRESS. WAS DIRECTED BY NIK IN PURCHASING TO CONTACT "MIRANDA" AT [phone]. rEQUEST NUMBER [phone]. CONTACTED MIRANDA TO RENT A BED. BED SHOULD BE DELIVERED TODAY FROM [place].CONTINUE POT.
--- NOTE | 2018-08-16 13:43 | NUR ---
RECEIVED REPORT AT SHIFT CHANGE AND ASSUMED CARE OF PATIENT, SHE IS PLEASANT AND SITTING UP IN BED. PT STATES SHE IS FEELING "PRETTY GOOD TODAY." REPOSITIONING Q2 AND PER REQUEST. PT TOLERATES POSITIONING WELL, SHE IS ANXIOUS FOR THE BED THAT IS GOING TO BE DELIVERED TODAY. WHILE THIS RN IS IN THE ROOM, PT STATES SHE FEELS REALLY FULL BECAUSE SHE ATE TOO MUCH LUNCH AND IT IS MAKING IT HARD TO BREATHE. OFFERED PRN O2 AT 2LPM, PT ACCEPTED. O2 SAT >97%, HOB ELEVATED, PT EXPRESSED GRATITUDE AND SAID, "I GET REALLY ANXIOUS, THAT JUST HAPPENS, I CAN'T HELP IT." ENCOURAGED PT THAT IT WAS OKAY AND WILL CHECK BACK SOON FOR O2 RECHECK. CALL LIGHT AND PHONE AT EASY REACH, BED LOCKED AND LOW.
--- NOTE | 2018-08-16 17:32 | NUR ---
Initial Visit: Consult received for advanced care planning and symptom managment. History of deconditioning, possible aspiration, chronic pain, paraplegia, obesity, decub ulcer. Pt is alert, oriented, very pleasant and even full of tennille. She laughs frequently during the conversation. She reports that her family is full of life and love. She fills her house with these things. "If anyone is grumpy, they have to go to their room. Thats how we keep peace." She shares the story of her paraplegia. How difficult it was to wake up post op without the use of her legs. She states that she felt many challenging emotions, but finally came to the conclusion that "God still has me here for a reason." She has placed a life philosophy on "gratitude." She is experiencing a lot of anxiety - much more than her usual baseline worries. She is experiencing racing thoughts, intrusive thoughts, and ruminating thoughts. She has never taken a medication for anxiety before, but would be willing to try this now due to the severity of her anxiety. She is not sleeping well because of it. Reviewed anti anxiety medications, risk and benefit. Updated nurse on conversation, call placed to Dr. Stroud. She will review the chart, see if this pt is appropriate to medicate for anxiety. Will remain available; follow up for medication efficacy if new medication ordered.
--- NOTE | 2018-08-16 18:30 | NUR ---
PT HAD A GOOD DAY, SHE IS VERY TENDER WITH TURNING AND ESPECIALLY WITH CLEAN UP FROM BM'S AND REPACKING WOUND. DURING BATH TODAY TREATED HEELS AND FEET/ANKLES WHERE HER BOOTS ARE RUBBING HER SKIN. PLACED MEPILEX BANDAGES FOR PROTECTION AND COMFORT. PACKED DECUB ULCER WITH CALCIUM ALGINATE AND COVERED WITH MEPILEX. PT REPORTS SOME ANXIOUSNESS TO ALEX STEINBERG, SHE OBTAINED ORDER FOR JADON TO START TONIGHT. WILL CONTINUE TO MONITOR PATIENT AND GIVE REPORT TO NOC RN. BED LOCK AND LOW, HOB ELEVATED, CALL LIGHT WITHIN EASY REACH.
--- NOTE | 2018-08-17 05:27 | NUR ---
END OF SHIFT SUMMARY NO ACUTE CHANGES THIS SHIFT. VSS. COCCYX ULCER CLEANED WITH SKINTEGRITY, PACKED WITH CA ALGINATE. COVERED WITH PORROUS DRESSING TO ALLOW FOR AIRFLOW VIA SPECIALIZED WOUND BED. BM X 2 THIS SHIFT, CLEANED. NEW BED ARRIVED VIA [employer]. S NURSE AND OTHER STAFF MEMBERS ORIENTED TO BED. PT TRANSFERRED TO IT, BEAD TECHNOLOGY TURNED ON. BED BENEATH ULCER CONSTANTYL IN MOTION. PT STILL BEING TURNED IT IS UNKNOWN IF THIS IS REQUIRED WITH THIS BED. DR CARLOS ORDERED FLEXISEAL FOR THIS RN DUE TO LOOSE STOOLS AND WOUND CLEANLINESS. PT HAS POOR SPHINCTER TONE, FLEXISEAL INSERTION UNSSUCESFUL X 3 ATTEMPTS. OPTED TO CONTINUE TO CHECK FOR BM'S FREQUENTLY. PT HAS BEEN ANXIOUS REGARDING HOPITAL STAY, HER PROGRESS, AND THE NEW BED. MEDICATED PER EMAR. THIS NURSE SAT AND TALKED WITH PT REGARDING HER ANXIETY. WILL CONTINUE TO MONITOR PT UTIL SHIFT CHANGE. CALL LIGHT WITHIN REACH. BED IN LOWEST POSITION.
--- NOTE | 2018-08-17 14:22 | NUR ---
CALLED DR. MERCHANT CELL PHONE, SURGICAL ROOM STAFF ANSWERED AND RECEIVED MESSAGE FOR CONSULT. PLACED DR. MERCHANT NAME ON PATIENT FILE FOR CONSULT. STATED THAT CONSULT MAY NOT BE POSSIBLE UNTIL LATER TODAY (08/17) OR TOMORROW (08/18) DUE TO COMPLEX CASE IN OPERATING ROOM. UPDATED CONSULT ON FILE.
--- NOTE | 2018-08-17 19:39 | NUR ---
PT ARRIVED TO UNIT TODAY AT 1245 FROM ED. PT IS A BIT ANXIOUS AND REPORTS THAT SHE HAD SEVERE CHEST PAIN THAT HAS RESOLVED FOR THE MOST PART. DR. CUNNINGHAM DID ANGIOGRAM TODAY, PT TO SETTER HELPER AT 1525, RETURNED AT 1730. PT LYING FLAT. MONITORING FEMORAL AND RADIAL SITES. RECOVERY VITALS STABLE AND RECORDED. SOME OOZING NOTED FROM FEMORAL SITE WHEN PATIENT ARRIVED TO UNIT FROM SETTER HELPER. OOZING CONTINUED, DRESSING CHANGED, NEW DRESSING HAS SOME DRAINAGE CONTINUING. PT IS RESTING COMFORTABLY ON ROOM AIR. NO COMPLAINTS OF CHEST PAIN OR DISCOMFORT. GAVE REPORT TO NOC RNSEE.
--- NOTE | 2018-08-18 06:07 | NUR ---
SHIFT SUMMARY PT RESTING IN ROOM COMFORTABLY AT THIS TIME. PT HAD NO ACUTE CHANGES IN STATUS T/O NIGHT. PT DID C/O NAUSE T/O NIGHT AND WAS MEDICATED PER EMAR. PT REPORTED NAUSEA LESSENED ENOUGH TO GET SOME SLEEP , BUT CAME BACK THIS AM. PT WAS AGAIN MEDICATED PER EMAR FOR NAUSEA, PT DENIES ANY VOMITTING. PT WAS TURNED T/O TO CHECK FOR STOOL. PT ON SPECIALTY BED, WITH AIR THERAPY, AND TOLERATES FAIR. SPECIALTY BED REP TO COME IN TODAY TO ASSIST STAFF W/ USE OF BED. PT DENIES OTHER NEEDS AT THIS TIME. SUPRAPUBIC CATH IN PLACE, WNL, DRAINING CLOUDY YELLOW URINE W/ SOME SEDIMENT. DENIES PAIN. CALL LIGHT IN REACH.
--- NOTE | 2018-08-18 12:08 | NUR ---
AM NOTE. ASSUMED CARE OF PT APROX 0700, PT IS A&Ox4, PT WAS ADMITTED FOR SEPSIS RELATED TO A PRESSURE ULCER. PT HAS SUPERPUBIC KIMBLE THAT IS DRAINING DARK YELLOW URINE. PT HAS BEEN NPO SINCE MIDNIGHT FOR SURGICAL DEBRIEDMENT OF THE PRESSURE ULCER AND BONE BX. PT HAS C/O OF SEVERE NAUSEA SINCE NOC SHIFT, PT HAS BEEN MEDICATED PER EMAR. PT'S VS HAVE BEEN STABLE, PT DENIES PAIN AT THIS TIME. WILL CONTINUE TO MONITOR.
--- NOTE | 2018-08-18 12:15 | NUR ---
History, Chart, Medications and Allergies reviewed before start of procedure. Patient confirms NPO status and agrees with scheduled surgery. Pre-Op teaching done. Pt verbalizes understanding.
--- NOTE | 2018-08-18 12:42 | NUR ---
"DAY SURGERY RN | WATCHED PATIENT WHILE DRAGAN JOHNSON STEPPED OUT. BOTH DOCTORS SAW PATIENT. NO ISSUES. REPORT BACK TO DRAGAN JOHNSON."
--- NOTE | 2018-08-18 14:26 | NUR ---
08/18/18 1426 Julito Granados WHILE APPLYING THE WOUND VAC DRESSING, TWO SKIN TEARS WERE NOTED. SEE MD DICTATION FOR FURTHER DETAILS.
--- NOTE | 2018-08-18 18:22 | NUR ---
SHIFT SUMMARY. NO ACUTE CHANGES NOTED THIS SHIFT. PT ARRIVED BACK FROM THE OR APROX 1500. PT IS AWAKE AND ALERT ASKING FOR HER LUNCH TRAY. PT HAS C/O OF THE SPECIALTY BED/MATTRESS AND HAS REQUESTED THE AIRMATTRESS BE TURNED OFF BECAUSE SHE FEELS THAT "IT MAKES ME FEEL LIKE I AM GOING TO THROW UP." THE MATTRESS HAS BEEN TURNED OFF MOST OF THE SHIFT PER PT'S REQUEST. PT'S VS HAVE BEEN STABLE. WOUND VAC IS C/D/I WITH GOOD SUCTION. PT DENIES ANY PAIN AT THIS TIME. CALL LIGHT IN REACH, BED IS LOCKED AND LOW WILL CONTINUE TO MONITOR UNTIL REPORT IS GIVEN TO ONCOMING RN.
--- NOTE | 2018-08-19 06:49 | NUR ---
Rn summary: Pt was transferred to room 363 from PCU in specialty bed at about 2130. Pt is alert and oriented. She is very pleasant. Pt is paralyzed from the waist down. Pt had I&D of decub on inner right buttocks. Wound vac was leaking so drsg was redone. Pt is having bloody drainage. Pt has been medicated x2 with oxy 10 mg for upper abdominal pain. Vital signs are stable. Pt has red dry skin to back. Pt likes pills with applesauce. special boot to lina feet to float heals. Pt has rested latter part of shift. Pt uses call light appropriately. O2 at 2 liters for comfort PRN. Report to day shift.
--- NOTE | 2018-08-19 19:28 | NUR ---
PT AOX4 AND COOPERATIVE OF ALL CARE. PT IN BED ALL DAY AND SPECIAL SAND BED WORKING WELL. WOUN VAC HAS BEEN WORKING ALL DAY AND WAS STUCK WELL. SUPRA PUBIC CATH STOPPED WORKING END OF SHIFT AND BED WAS WET. PT ALSO HAD JUST HAD A BM AND IT WAS LOOSE. WOUND VAC WRAP WAS RUINED AND WILL BE CHANGED ON SUPERINTENDENT MAINTENANCE AIRPORTS. PT CLEANED UP AND CATH WILL BE REPLACED ON SUPERINTENDENT MAINTENANCE AIRPORTS WELL. NO DISTRESS AT THIS TIME. PT TREATED FOR PAIN PER EMAR.
--- NOTE | 2018-08-19 21:07 | NUR ---
WOUND VAC DRSG CHANGED. AREA CLEANSED. 1 WHITE PIECE AND 1 BLACK PIECE OF FOAM. FOAM TAIL OUT TO R HIP. PATENT SEAL
--- NOTE | 2018-08-20 06:42 | NUR ---
SHIFT SUMMARY PT A/O NONAMBULATORY. REDRESSED WOUND VAC OUTPUT WAS ABOUT 100 OF DARK RED. 2L O2 NC. C/O PAIN X1. SHE WAS ABLE TO SLEEP ON AND OFF T/O NOC. SUPRAPUBIC CATH STILL LEAKING. BLADDER SCAN DIDN'T SHOW ANYTHING. HAD LARGE LOOSE BM. CALL LIGHT IN REACH.
--- NOTE | 2018-08-20 16:59 | NUR ---
AOX4 AND COOPERATIVE OF CARE. HAVE BEEN TRYING TO KEEP PT DRY POSSIBLE DUE TO LEAKING CATHETHER. WAITING TO HAVE THIS CHANGED AND FIXED. DAMPNESS HAS AGAIN CAUSED WOUND VAC TO LIFT UP AND NEEDS CHANGED, BUT SUCTIONS AT THIS TIME WITH PT IN BED. PT CALLS APPRORIATELY. WILL CONTINUE TO MONITOR.
--- NOTE | 2018-08-21 07:01 | NUR ---
SHIFT SUMMARY PT A/O C/O PAIN AND MEDICATED X1. SUPRAPUBIC CATH DRAINING SMALL AMOUNTS, FLUSHED BUT WOUND NOT PULLED BACK OUT. BLADDER SCAN SHOWED 69. URINE DRAINING IN CATH TUBE AND INTO BAG. WOUND VAC DRAINING DARK RED BLOOD ABOUT 50ML ADDITIONAL FROM YESTERDAY. SHE WAS ABLE TO SLEEP T/O NIGHT. REPORT GIVEN TO DAY RN.
--- NOTE | 2018-08-21 17:18 | NUR ---
SUMMARY PT RESTING QUIETLY ON THE SPECIALTY BED, HAS BEEN PLEASANT AND COOPERATIVE WITH CARE, MED PER EMAR FOR PAIN, FAMILY HAS BEEN IN TO VISIT, PT ABLE TO TAKE HER PILLS WHOLE IN APPLESAUCE, SUPRAPUBIC CATHETER HAS DRAINED WELL T/O THE DAY, NO COMPLAINTS, VSS, NO ACUTE CHANGES, WILL CONT TO MONITOR
--- NOTE | 2018-08-22 06:35 | NUR ---
SUMMARY: A/OX3, SPECIFIES NEEDS AND PLEASANT/COOPERATIVE W/CARE. PT HAS SPECIALTY BED FOR FURTHER SBD PREVENTION. GRADUAL REPOSITIONING WAS ALSO ATTENDED TO W/ATTENDS CHECKS OFTEN. NO BM THIS SHIFT BUT CHRONIC SP CATH IS PATENT, YELLOW CLOUDY URINE OBSERVED. PT HAS WOUND VAC PRESENT TO R.ISCHIUM DECUB ULCER, DX AND SUCTION REMAIN INTACT AND SM.AMT OF OUTPUT OBSERVED. OXYCODONE RECIEVED PRN FOR GOOD RELIEF OF ABDO MUSCLE PAIN FROM STRAINING DURING REPOSITIONING. AMBER TAPIA IS SL. NO ACUTE CHANGES, VSS/AFEBRILE. WCTM AND REPORT TO DAY RN.
--- NOTE | 2018-08-22 17:01 | NUR ---
SUMMARY PT RESTING IN BED QUIETLY, PT HAS BEEN PLEASANT AND COOPERATIVE WITH CARE, PT RECIEVED A BED BATH TODAY, 2 STAFF REQUIRED, PT TOLERATED TURNING POORLY, WOUND VAC WITH A LEAK, REINFORCED, PT DECLINED TO HAVE IT CHANGED, DUE TO NOT WANTING TO TURN TO HER SIDE FOR AN EXTENDED PERIOD OF TIME AGAIN, PT HAS BEEN MED PER EMAR FOR PAIN, PT HAS HAD FAMILY IN TO VISIT, VSS, NO ACUTE CHANGES, WILL CONT TO MONITOR
--- NOTE | 2018-08-22 23:15 | NUR ---
PT HAD POWERGLIDE DX CHANGED THIS EVENING BY SHAUN TENA WHICH PROVOKED ANXIETY AND SHE HAD A DIFFICULT TIME CALMING DOWN AFTERWARD. STAFF ATTEMPTED TO REPOSITION HER, PROVIDE WARM BLANKETS, MEDICATE FOR PAIN AND PROVIDE REASSURANCE BUT SHE CONT'D TO CALL FOR ASSIST W/INABILITY SPECIFYING NEEDS. SHE KEPT REPEATING THAT SHE WAS "ANXIOUS AND DIDN'T KNOW WHAT TO DO". PT'S FAMILY VISITED AND STATED SHE BECOMES THIS WAY AT HOME WHEN DEHYDRATED OR W/WORSENING INFECTION. RN NOTED VSS AND (+)FLUID BALANCE. HOWEVER SP CATHETER OUPUT HAS TRENDED DOWNWARD W/<250 ML/SHIFT LATELY. THEY REQUESTED POSSIBLE IVF AND BENEDRYL PRN FOR ANXIETY THEY OCCASIONALLY DO AT HOME. LABWORK ALSO NOTED TO HAVE NOT BEEN DONE FOR SEVERAL DAYS. FAMILY ALSO ASKED FOR REFRESH EYE GTTS FOR DRY EYES. CONCERNS AND FINDINGS WERE RELAYED TO MIMI DOYLE WHO RX'D BENEDRYL 12.5 MG IV X1 AND INSTRUCTED TO HAVE ATTENDING DAY MD ADDRESS OTHER CONCERNS. FAMILY REPORTED PT HAD VASTLY CALMED DOWN AFTER VISITING W/HER AND THEY THOUGHT THE DX CHANGE "JUST SET HER OFF" BUT PT REQUESTED IV BENEDRYL TO HELP W/NERVES AND SLEEP. MED RECIEVED AND PT HAS BEEN RESTING COMFORTABLY W/O COMPLAINTS SINCE.
--- NOTE | 2018-08-23 01:30 | NUR ---
PT BECAME VERY UPSET AND ANGRY TOWARD STAFF WHEN REPOSITIONING WAS REQUIRED TO FIX LEAKING WOUND VAC. ALARM WAS SOUNDING AND DX REQUIRED REINFORCEMENT. 3 STAFF UTILIZED TO LOG ROLL PT AND CHANGE LINEN D/T SATURATION W/SEROSANGUINOUS DRAINAGE FROM WEAPING ISCHIUM DECUB ULCER. PT DUE TO HAVE ENTIRE DX CHANGED TODAY (08/23/18) BY ROVING FRAME TENDER. SHE REFUSED TO LET NOCTE STAFF DO IT AT THIS TIME AND IT WAS REPORTED SHE WOULDN'T ALLOW THEM TO DO IT ON DAY SHIFT EITHER. TURNING IS PAINFUL AND SEEMS TO PROVOKE ANXIETY. SHE THEN BECOMES AGITATED AND NONCOMPLIANT. WE ATTEMPTED TO EXPLAIN RATIONALE FOR TURNING AND DX REPAIR BUT SHE IGNORED STAFF, EXHIBITED VERY CONCRETE THINKING AND ACCUSED STAFF OF BEING ARGUMENTATIVE. WOUND VAC WAS CORRECTED AND SUCTION WAS AGAIN INTACT BUT SHE INSISTED WE'D DONE "IT ALL WRONG AND TO SEND SOMEONE COMPETENT NEXT TIME". WHEN ATTEMPTING TO GAIN FURTHER CLARIFICATION TO HOW WE COULD HAVE DONE BETTER SHE TOLD STAFF "TO LEAVE HER BE". CALL LIGHT WAS LEFT IN REACH AND PT APPEARED TO SETTLE DOWN WHEN LEFT ALONE.
--- NOTE | 2018-08-23 05:29 | NUR ---
PT HAS BEEN PLEASANT ONCE AGAIN AND APOLOGIZE FOR GETTING "MEAN AND AWNRY BEFORE". SHE SAID "SOMETIMES I JUST HURT SO BAD AND IT SCARES ME SO I GET UPSET". SHE WAS COOPERATIVE W/BEING MOVED UP IN THE BED AND WAS GIVEN OXYCODONE FOR ABDO "MUSCLE PAIN". RN NOTED THAT PT HASN'T HAD BM SINCE 08/19/18 AND DOESN'T HAVE BOWEL PROTOCOL MEDS RX'D EITHER. WILL ALERT DAY STAFF OF POSSIBLE NEED D/T POTENTIAL FOR CONSTIPATION GIVEN IMOBILITY AND NARCOTICS. SHE REFUSED WANTING BOWEL MEDS AT THIS TIME AND SAID SHE TYPICALLY GOES Q3-4 DAYS.
--- NOTE | 2018-08-23 05:56 | NUR ---
SUMMARY: PT HAS BEEN MOSTLY ORIENTED AND PLEASANT/COOPERATIVE THIS SHIFT BUT DID HAVE EPISODES OF ANXIETY, IRRITABILITY, NONCOMPLIANCE AND DIFFICULTY SPECIFYING NEEDS. SHE RESISTS REPOSITIONING D/T PAIN AND BECOMES UPSET W/STAFF WHEN THIS IS NEEDED. HER LINEN REQUIRED CHANGED AND HER WOUND VAC DX HAD TO BE REINFORCED D/T LEAKING. TURNING PROVOKED ANXIETY WHICH RESULTED IN HER CALLING STAFF "INCOMPETENT". STAFF ATTEMPTED TO CALM PT/EXPLAIN RATIONALE BUT IT WAS PERCIEVED ANNOYING AND ARGUMENTATIVE. SHE APOLOGIZED LATER AND EXPRESSED THAT "PAIN MAKES HER SCARED AND BRINGS ANGER OUT". SHE'S AWARE THAT WOUND VAC DX IS DUE TO BE CHANGED TODAY BY PRODUCE FIELD MERCHANDISER BUT REFUSED THIS SHIFT. HER POWERGLIDE DX WAS CHANGED AT START OF SHIFT WHICH ALSO CAUSED CONFUSION AND ANXIETY. FAMILY VISITED SHORTLY AFTER AND WERE ABLE TO ASSIST IN CALMING BUT X1 IV BENEDRYL WAS RECIEVED WELL (PER FAMILY REQUEST) FOR ADDITIONAL EFFECT. OXYCODONE WAS PROVIDED T/O NOCTE FOR C/O ABDO PAIN/CRAMPING. STAFF NOTED NO BM SINCE 08/19/18 AND POSSIBLE NEED FOR BOWEL MEDS D/T IMMOBILITY AND POTENTIAL FOR CONSTIPATION. SHE REFUSED NEED AT THIS TIME. PT REMAINS ON SPECIALTY BED FOR FURTHER SBD PREVENTION W/GRADUAL REPOSITIONING ATTENDED TO. THIS RN DISCUSSED W/YANIRA, CONSULTING INTERN A TREND OF LOW URINE OUTPUTS FROM SP CATH, POSSIBLE NEED FOR IVF D/T FAMILY REPORT OF CONFUSION WHEN DEHYDRATED AND LABWORK NOT BEING DONE FOR SEVERAL DAYS. NO NEW ORDERS WERE RECIEVED AND HE INSTRUCTED THAT DAY MD SHOULD EVALUATE THESE CONCERNS, WILL ENSURE DAY STAFF ARE AWARE. NO ACUTE CHANGES OTHERWISE AND VSS/AFEBRILE. WCTM AND REPORT TO DAY RN.
--- NOTE | 2018-08-23 17:10 | NUR ---
PT AOX4 AND COOPERATIVE OF CARE. PT CALLS WHEN SHE NEED SOMETHING AND HAS BEEN PLEASANT TODAY. PT HAD WOUND VAC CHANGED AND TOLERATED VERY WELL. PT HAS NOT BEEN PUTTING OUT A LOT OF FLUIDS. CATHETER WAS FLUSHED WITH NO RESISTANCE NOTED. NO RETENTION SEEN BY BLADDER SCAN. FEMININE NAPKIN ADDED PT LEAKS URINE OFF AND ON AND REDNESS NOTED IN VAGINAL AREA DURING WOUND VAC CHANGE. WILL CONTINUE TO MONITOR.
--- NOTE | 2018-08-24 04:28 | NUR ---
SHIFT SUMMARY: 83 Y/O OBESE FEMALE RESTED COMFORTABLY ON AIR MATTRESS BED. PT HAS MULTIPLE WOUNDS TO FEET, COCCYX THAT ARE SHOWING SLOW PROGRESS TOWARDS HEALING. PTS RIGHT INNER BUTTOCK WOUND VAC WAS CHANGED BY THIS NURSE WITH SKIN PREP APPLIED AROUND WOUND EDGES. PT ALERT AND ORIENTED X 4, ABLE TO FOLLOW ALL SIMPLE VERBAL COMMANDS. PTS DAUGHTER ARON AND GRANDDAUGHTER WERE AT SIDE AND ARE VERY SUPPORTIVE LAST NIGHT. PT IS PLANNING ON RETURNING HOME TO FAMILY UPON DISCHARGE FROM HOSPITAL. PT DENIES PAIN OR NAUSEA. PTS BILATERAL LOWER FEETS ARE NOTED TO HAVE VERY LONG AND POINTED TOE NAILS WITH REPORT PASSED TO DAYSHIFT NURSE REGARDING LINE PATROLLER CONSULT. PT WAS VERY CALM AND COOPERATIVE ALL SHIFT WITH NO ANXIETY NOTED. PTS BED LOW POSITION, CALL LIGHT AT SIDE.
--- NOTE | 2018-08-24 17:33 | NUR ---
PT AOX4 AND COOPERATIVE OF CARE. PT HAS BEEN DOING WELL TODAY AND WAS PLEASANT WITH ALL CARE UNTIL LAST BED CHANGE. PT HAD A LARGE BM AND IT WAS VERY MESSY IN THE BED THIS REQUIRED TIME AND CLEANING. BOTH THIS BUSINESS LAW TEACHER AND AID WORKED VERY CAREFUL AND SLOW, BUT PT DECIDED SHE WAS DONE RETIREMENT THROUGH CLEANING. PT WAS TALKED CALMLY AND QUIETLY WITH ALL CARE FOR HER COMFORT TAKEN INTO ACCOUNT. PT AT THIS POINT THEN STATES SHE DID NOT WANT ANYMORE TO DO WITH ANYONE AND NEEDED TIME ALONE. HALF HR LATER SHE WAS STILL STATING SHE WAS NOT HAPPY. CATHETER SEEMS TO BE WORKING BETTER TODAY AND WOUND VAC CONTINUES TO FUNCTION. PAIN TREATED PER EMAR. WILL CONTINUE TO MONITOR.
--- NOTE | 2018-08-25 05:29 | NUR ---
SHIFT SUMMARY PATIENT HAD NO ACUTE CHANGES OBSERVED THIS SHIFT. AXO X3 AND BEDFAST. POWERGLIDE AMBER. TAKES MEDICATION WHOLE WITH . WOUND VAC IN PLACE RIGHT INNER THIGH. REPORTED PAIN X ONE AND RECEIVED OXY 10 MG PER EMAR. DENIES N/V AND SOB. ON 2L O2 NC. VSS/AFEBRILE. CALL LIGHT IN REACH. BED IN LOWEST POSITION. WILL CONTINUE TO MONITOR UNTIL DAY SHIFT NURSE ASSUMES CARE.
[2018-08-25] MEDS ORDERED: BUSP5 PO (14:04)
[2018-08-25] MEDS ORDERED: CYCL0.05OP BOTHEYES (14:05)
[2018-08-25] MEDS ORDERED: Rocephin 1g1 G/50 ML IV (14:06)
--- NOTE | 2018-08-25 16:43 | NUR ---
SHIFT SUMMARY NO ACUTE CHANGES. PATIENT MEDICATED X 1 FOR PAIN THIS SHIFT, DENIES NAUSEA AND SHORTNESS OF BREATH. PATIENT PLEASANT AND COOPERATIVE WITH CARE. CALL LIGHTIN REACH, WILL CONTINUE TO MONITOR.
--- NOTE | 2018-08-26 05:53 | NUR ---
SHIFT SUMMARY PT CHANGED AND CLEANED OF BM, WOUND VAC DRESSING ALSO CHANGED PER PROCEDURE NURSE. PT ALERT AND ORIENTED. MEDICATED FOR PAIN X2 THIS SHIFT. PT HAS SLEPT FAIR DURING THE NIGHT. NO ACUTE EVENTS NOTED, WILL CONTINUE TO MONITOR.
--- NOTE | 2018-08-26 18:03 | NUR ---
PATIENT DISCHARGE THE PATIENT WAS DISCHARGED HOME VIA AMBULANCE AT 1728. THE PATIENT WAS DISCHARGED HOME AFTER DISCHARGE INSTRUCTIONS WERE GIVEN TO THE PATIENT AND FAMILY. THE PATIENT LEFT THE HOSPITAL WITHOUT CONCERN OR COMPLAINT.
== END 2018-08-26 17:32 | disposition home or self-care (01) | DRG 853 ==
LOC: ER 21:38 → MEDS 08-13 00:39 → PCU 08-13 00:39 → MEDS 08-18 21:04 → ENPENDDIS 08-26 11:58 → MEDS 08-26 17:32
PROVIDERS: Emergency Medicine; Internal Medicine; Surgery; ADMIT Internal Medicine
PROC: 0QB20ZZ Excision of Right Pelvic Bone, Open Approach (ICD-10-PCS; principal; 2018-08-18 12:00)
DX: A41.51 Sepsis due to Escherichia coli [E. coli] (principal); L89.894 Pressure ulcer of other site, stage 4; N39.0 Urinary tract infection, site not specified; T83.511A Infection and inflammatory reaction due to indwelling urethral catheter, initial encounter; M86.8X8 Other osteomyelitis, other site; G82.20 Paraplegia, unspecified; E87.2 Acidosis; Z68.43 Body mass index [BMI] 50.0-59.9, adult; R65.20 Severe sepsis without septic shock; Z51.5 Encounter for palliative care; I48.91 Unspecified atrial fibrillation; Z79.01 Long term (current) use of anticoagulants; I10 Essential (primary) hypertension; J44.9 Chronic obstructive pulmonary disease, unspecified; N31.9 Neuromuscular dysfunction of bladder, unspecified; G89.4 Chronic pain syndrome; E03.9 Hypothyroidism, unspecified; M62.838 Other muscle spasm; Z74.01 Bed confinement status; E66.01 Morbid (severe) obesity due to excess calories; K21.9 Gastro-esophageal reflux disease without esophagitis; Z98.1 Arthrodesis status
CPT/HCPCS: 36415; 71045; 72193; 80048; 80053; 80202; 81001; 82565; 82947; 83605; 83880; 84145; 85025; 85027; 85610; 85651; 86140; 87040; 87070; 87071; 87075; 87077; 87086; 87186; 87205; 87486; 87581; 87633; 87798; 92526; 92610; 93005; 93010; 94640; 94667; 94760; 96365-59; 96367; 99285-25; A9270; A9270-GY; J0696; J1200; J1650; J1956; J2405; J2543; J2704; J2765; J3010; J3370; J7030; J7050; J7120; Q9967

== ENCOUNTER → 2018-08-30 | Outpatient (CLI) | payer MEDICARE, OTHER ==
[~2018-08-30] MED LIST changes: +Advair Hfa 115-12 GM INH; +Aldactone50 MG PO; +Aspirin EC81 MG PO; +BUSP5 PO; +CYCL0.05OP BOTHEYES; +Calcium 600+D1 EAC2 PO; +EUCERIN DAILY400 ML TOP; +FLUC100 PO; +Hair, Skin & N1 EACH PO; +POTA10T PO; +Rocephin 1g1 G/50 ML IV; +TORSE20 PO; +Zoloft100 MG PO
[2018-08-30 18:12] LABS: Hematocrit 37.4 % (33.0-51.0); Hemoglobin 11.7 g/dL (11.5-16.0); Mean Corpuscular HGB 29.8 pg (26.0-34.0); Mean Corpuscular HGB Conc 31.3 g/dL (31.5-36.5); Mean Corpuscular Volume 95 fL (80-100); Mean Platelet Volume 10.7 fL (9.1-12.4); Platelet Count 306 K/mm3 (150-400); RDW Standard Deviation 53.1 fL (35.1-46.3); Red Blood Cell Count 3.92 M/mm3 (3.80-5.20)
[2018-08-30 18:26] LABS: Anion Gap 5 mmol/L (6-16); Blood Urea Nitrogen 8 mg/dL (8-24); Bun/Creatinine Ratio 20.5 (12.0-20.0); CO2, Blood 31 mmol/L (21-32); Calcium, Blood 8.1 mg/dL (8.5-10.1); Chloride, Blood 97 mmol/L (98-108); Creatinine, Blood 0.39 mg/dL (0.40-1.00); Glomerular Filtration Rate >60 (60-); Glucose, Blood 124 mg/dL (70-99); Potassium, Blood 4.1 mmol/L (3.5-5.5); Sodium, Blood 133 mmol/L (136-145)
== END | disposition home or self-care (01) ==
LOC: LAB 17:47 → LAB SHORT 17:47
PROVIDERS: Internal Medicine Infectious Disease
DX: L89.314 Pressure ulcer of right buttock, stage 4 (principal); M86.10 Other acute osteomyelitis, unspecified site; R65.21 Severe sepsis with septic shock
CPT/HCPCS: 80048; 85027; 85651; 86140

== ENCOUNTER 2018-09-06 07:33 | Day surgery (SDC) | payer MEDICARE, OTHER ==
[~2018-09-06 07:33] MED LIST changes: -Advair Hfa 115-12 GM INH; -Aldactone50 MG PO; -Aspirin EC81 MG PO; -EUCERIN DAILY400 ML TOP; -FLUC100 PO; -POTA10T PO; -TORSE20 PO; -Zoloft100 MG PO
== END 2018-09-06 22:59 | disposition home or self-care (01) ==
LOC: WOUND 07:33
DX: L89.314 Pressure ulcer of right buttock, stage 4 (principal); M86.9 Osteomyelitis, unspecified; G82.20 Paraplegia, unspecified; I10 Essential (primary) hypertension; E03.9 Hypothyroidism, unspecified; G89.29 Other chronic pain; Z87.891 Personal history of nicotine dependence; Z88.1 Allergy status to other antibiotic agents
CPT/HCPCS: G0463

== ENCOUNTER → 2018-09-08 | Outpatient (CLI) | payer MEDICARE, OTHER ==
[~2018-09-08] MED LIST changes: +Advair Hfa 115-12 GM INH; +Aldactone50 MG PO; +Aspirin EC81 MG PO; +EUCERIN DAILY400 ML TOP; +FLUC100 PO; +POTA10T PO; +TORSE20 PO; +Zoloft100 MG PO
[2018-09-08 16:03] LABS: BASOPHILS ABSOLUTE AUTO 0.05 K/mm3 (0.00-0.23); BASOPHILS PERCENT AUTO 1 % (0-2); EOSINOPHILS PERCENT AUTO 7 % (0-6); Hematocrit 38.1 % (33.0-51.0); Hemoglobin 11.6 g/dL (11.5-16.0); IMMATURE GRAN ABSOLUTE AUTO 0.04 K/mm3 (0.00-0.10); IMMATURE GRAN PERCENT AUTO 0 % (0-1); LYMPHOCYTES ABSOLUTE AUTO 1.53 K/mm3 (0.84-5.20); LYMPHOCYTES PERCENT AUTO 16 % (21-46); MONOCYTES ABSOLUTE AUTO 0.82 K/mm3 (0.16-1.47); MONOCYTES PERCENT AUTO 8 % (4-13); Mean Corpuscular HGB 28.9 pg (26.0-34.0); Mean Corpuscular HGB Conc 30.4 g/dL (31.5-36.5); Mean Corpuscular Volume 95 fL (80-100); Mean Platelet Volume 9.7 fL (9.1-12.4); NEUTROPHILS ABSOLUTE AUTO 6.76 K/mm3 (1.96-9.15); NEUTROPHILS PERCENT AUTO 68 % (41-73); Platelet Count 404 K/mm3 (150-400); RDW Coefficient Variation 15.2 % (11.7-14.2); RDW Standard Deviation 52.7 fL (35.1-46.3); Red Blood Cell Count 4.01 M/mm3 (3.80-5.20)
[2018-09-08 16:19] LABS: Anion Gap 3 mmol/L (6-16); Blood Urea Nitrogen 8 mg/dL (8-24); Bun/Creatinine Ratio 19.4 (12.0-20.0); CO2, Blood 32 mmol/L (21-32); Calcium, Blood 8.6 mg/dL (8.5-10.1); Chloride, Blood 101 mmol/L (98-108); Creatinine, Blood 0.41 mg/dL (0.40-1.00); Glomerular Filtration Rate >60 (60-); Glucose, Blood 113 mg/dL (70-99); Potassium, Blood 4.2 mmol/L (3.5-5.5); Sodium, Blood 136 mmol/L (136-145)
== END | disposition home or self-care (01) ==
LOC: LAB 15:44 → LAB SHORT 15:44 → LAB HH 15:44
PROVIDERS: Internal Medicine Infectious Disease
DX: R65.21 Severe sepsis with septic shock (principal); M86.10 Other acute osteomyelitis, unspecified site; L89.314 Pressure ulcer of right buttock, stage 4
CPT/HCPCS: 80048; 85025; 85651; 86140

== ENCOUNTER 2018-09-13 13:48 | Day surgery (SDC) | payer MEDICARE, OTHER ==
[~2018-09-13 13:48] MED LIST changes: -Advair Hfa 115-12 GM INH; -Aldactone50 MG PO; -Aspirin EC81 MG PO; -EUCERIN DAILY400 ML TOP; -FLUC100 PO; -POTA10T PO; -TORSE20 PO; -Zoloft100 MG PO
== END 2018-09-13 23:03 | disposition home or self-care (01) ==
LOC: WOUND 13:48
DX: L89.314 Pressure ulcer of right buttock, stage 4 (principal); L89.323 Pressure ulcer of left buttock, stage 3; M86.9 Osteomyelitis, unspecified; G82.20 Paraplegia, unspecified; N31.9 Neuromuscular dysfunction of bladder, unspecified; I10 Essential (primary) hypertension; E03.9 Hypothyroidism, unspecified; G89.29 Other chronic pain
CPT/HCPCS: G0463

== ENCOUNTER → 2018-09-15 | Outpatient (CLI) | payer MEDICARE, OTHER ==
[~2018-09-15] MED LIST changes: +Advair Hfa 115-12 GM INH; +Aldactone50 MG PO; +Aspirin EC81 MG PO; +EUCERIN DAILY400 ML TOP; +FLUC100 PO; +POTA10T PO; +TORSE20 PO; +Zoloft100 MG PO
[2018-09-15 15:35] LABS: BASOPHILS ABSOLUTE AUTO 0.05 K/mm3 (0.00-0.23); BASOPHILS PERCENT AUTO 1 % (0-2); EOSINOPHILS ABSOLUTE AUTO 0.43 K/mm3 (0.00-0.68); EOSINOPHILS PERCENT AUTO 4 % (0-6); Hematocrit 40.4 % (33.0-51.0); IMMATURE GRAN ABSOLUTE AUTO 0.03 K/mm3 (0.00-0.10); IMMATURE GRAN PERCENT AUTO 0 % (0-1); LYMPHOCYTES ABSOLUTE AUTO 1.39 K/mm3 (0.84-5.20); LYMPHOCYTES PERCENT AUTO 14 % (21-46); MONOCYTES ABSOLUTE AUTO 0.84 K/mm3 (0.16-1.47); MONOCYTES PERCENT AUTO 9 % (4-13); Mean Corpuscular HGB Conc 29.7 g/dL (31.5-36.5); Mean Platelet Volume 10.1 fL (9.1-12.4); NEUTROPHILS ABSOLUTE AUTO 7.11 K/mm3 (1.96-9.15); NEUTROPHILS PERCENT AUTO 72 % (41-73); Platelet Count 334 K/mm3 (150-400); RDW Coefficient Variation 15.3 % (11.7-14.2); RDW Standard Deviation 55.2 fL (35.1-46.3); Red Blood Cell Count 4.14 M/mm3 (3.80-5.20); White Blood Cell Count 9.85 K/mm3 (4.00-11.30)
[2018-09-15 15:37] LABS: Mean Corpuscular Volume 98 fL (80-100)
[2018-09-15 16:22] LABS: Anion Gap 3 mmol/L (6-16); Blood Urea Nitrogen 6 mg/dL (8-24); Bun/Creatinine Ratio 17.1 (12.0-20.0); CO2, Blood 34 mmol/L (21-32); Calcium, Blood 8.3 mg/dL (8.5-10.1); Chloride, Blood 100 mmol/L (98-108); Creatinine, Blood 0.35 mg/dL (0.40-1.00); Glomerular Filtration Rate >60 (60-); Glucose, Blood 84 mg/dL (70-99); Potassium, Blood 4.4 mmol/L (3.5-5.5); Sodium, Blood 137 mmol/L (136-145)
== END | disposition home or self-care (01) ==
LOC: LAB SHORT 15:29 → LAB 15:29
PROVIDERS: Internal Medicine Infectious Disease
DX: L89.314 Pressure ulcer of right buttock, stage 4 (principal); M86.10 Other acute osteomyelitis, unspecified site; R65.21 Severe sepsis with septic shock
CPT/HCPCS: 80048; 85025; 85651; 86140

== ENCOUNTER 2018-09-20 00:34 | Day surgery (SDC) | payer MEDICARE, OTHER ==
[~2018-09-20 00:34] MED LIST changes: -Advair Hfa 115-12 GM INH; -Aldactone50 MG PO; -Aspirin EC81 MG PO; -EUCERIN DAILY400 ML TOP; -FLUC100 PO; -POTA10T PO; -TORSE20 PO; -Zoloft100 MG PO
== END 2018-09-20 23:16 | disposition home or self-care (01) ==
LOC: WOUND 00:34
DX: L89.314 Pressure ulcer of right buttock, stage 4 (principal); L89.323 Pressure ulcer of left buttock, stage 3; M86.9 Osteomyelitis, unspecified; I10 Essential (primary) hypertension; I48.91 Unspecified atrial fibrillation; E03.9 Hypothyroidism, unspecified
CPT/HCPCS: G0463

== ENCOUNTER 2018-09-22 15:02 | Day surgery (SDC) | payer MEDICARE, OTHER ==
--- NOTE | 2018-09-22 17:21 | NUR ---
ORDERS NOTED AND CONSENT SIGNED. PORTABLE CXR FOR VERIFICATION OF PLACEMENT. MINIMAL BLOOD LOSS. PT GELA PROCEDURE WELL.
== END 2018-09-22 16:45 | disposition home or self-care (01) ==
LOC: ATC 15:02
DX: L89.314 Pressure ulcer of right buttock, stage 4 (principal); I10 Essential (primary) hypertension; E03.9 Hypothyroidism, unspecified; G89.29 Other chronic pain
CPT/HCPCS: 36569; 71045; C1751

== ENCOUNTER → 2018-09-24 | Outpatient (CLI) | payer MEDICARE, OTHER ==
[~2018-09-24] MED LIST changes: +Advair Hfa 115-12 GM INH; +Aldactone50 MG PO; +Aspirin EC81 MG PO; +EUCERIN DAILY400 ML TOP; +FLUC100 PO; +POTA10T PO; +TORSE20 PO; +Zoloft100 MG PO
[2018-09-24 14:45] LABS: Hematocrit 35.2 % (33.0-51.0); Hemoglobin 10.7 g/dL (11.5-16.0); Mean Corpuscular HGB 29.5 pg (26.0-34.0); Mean Corpuscular HGB Conc 30.4 g/dL (31.5-36.5); Mean Corpuscular Volume 97 fL (80-100); Mean Platelet Volume 10.4 fL (9.1-12.4); Platelet Count 309 K/mm3 (150-400); RDW Coefficient Variation 15.9 % (11.7-14.2); RDW Standard Deviation 56.9 fL (35.1-46.3); Red Blood Cell Count 3.63 M/mm3 (3.80-5.20)
[2018-09-24 14:59] LABS: Anion Gap 4 mmol/L (6-16); Blood Urea Nitrogen 10 mg/dL (8-24); Bun/Creatinine Ratio 33.6 (12.0-20.0); CO2, Blood 34 mmol/L (21-32); Calcium, Blood 8.4 mg/dL (8.5-10.1); Chloride, Blood 100 mmol/L (98-108); Glomerular Filtration Rate >60 (60-); Glucose, Blood 98 mg/dL (70-99); Potassium, Blood 4.3 mmol/L (3.5-5.5); Sodium, Blood 138 mmol/L (136-145)
== END | disposition home or self-care (01) ==
LOC: LAB 14:00 → LAB SHORT 14:00
PROVIDERS: Internal Medicine
DX: M86.10 Other acute osteomyelitis, unspecified site (principal); L89.314 Pressure ulcer of right buttock, stage 4; R65.21 Severe sepsis with septic shock
CPT/HCPCS: 80048; 85027; 85651; 86140

== ENCOUNTER 2018-09-27 00:21 | Day surgery (SDC) | payer MEDICARE, OTHER ==
[~2018-09-27 00:21] MED LIST changes: -Advair Hfa 115-12 GM INH; -Aldactone50 MG PO; -Aspirin EC81 MG PO; -EUCERIN DAILY400 ML TOP; -FLUC100 PO; -POTA10T PO; -TORSE20 PO; -Zoloft100 MG PO
== END 2018-09-27 22:52 | disposition home or self-care (01) ==
LOC: WOUND 00:21
DX: M86.9 Osteomyelitis, unspecified (principal); L89.314 Pressure ulcer of right buttock, stage 4; L89.323 Pressure ulcer of left buttock, stage 3; I48.91 Unspecified atrial fibrillation; I10 Essential (primary) hypertension; E03.9 Hypothyroidism, unspecified
CPT/HCPCS: G0463

== ENCOUNTER 2018-10-01 20:16 | Inpatient (IN) | payer MEDICARE, OTHER ==
[~2018-10-01] VITALS: Ht 154.9 cm; Wt 104.3 kg
[2018-10-01 21:21] LABS: BASOPHILS ABSOLUTE AUTO 0.08 K/mm3 (0.00-0.23); BASOPHILS PERCENT AUTO 1 % (0-2); EOSINOPHILS ABSOLUTE AUTO 0.63 K/mm3 (0.00-0.68); EOSINOPHILS PERCENT AUTO 6 % (0-6); Hematocrit 40.4 % (33.0-51.0); Hemoglobin 11.9 g/dL (11.5-16.0); IMMATURE GRAN ABSOLUTE AUTO 0.03 K/mm3 (0.00-0.10); IMMATURE GRAN PERCENT AUTO 0 % (0-1); LYMPHOCYTES ABSOLUTE AUTO 1.45 K/mm3 (0.84-5.20); LYMPHOCYTES PERCENT AUTO 13 % (21-46); MONOCYTES ABSOLUTE AUTO 0.75 K/mm3 (0.16-1.47); MONOCYTES PERCENT AUTO 7 % (4-13); Mean Corpuscular HGB 29.2 pg (26.0-34.0); Mean Corpuscular HGB Conc 29.5 g/dL (31.5-36.5); Mean Corpuscular Volume 99 fL (80-100); Mean Platelet Volume 9.4 fL (9.1-12.4); NEUTROPHILS ABSOLUTE AUTO 8.13 K/mm3 (1.96-9.15); NEUTROPHILS PERCENT AUTO 73 % (41-73); Platelet Count 375 K/mm3 (150-400); RDW Coefficient Variation 15.5 % (11.7-14.2); RDW Standard Deviation 57.1 fL (35.1-46.3); Red Blood Cell Count 4.07 M/mm3 (3.80-5.20); White Blood Cell Count 11.07 K/mm3 (4.00-11.30)
[2018-10-01 21:23] LABS: Base Excess Venous 6.9 mmol/L; Bicarbonate Venous 30.5 mmol/L (24.0-30.0); PCO2 Venous 36.2 mmHg (38-42); PO2 Venous 112 mmHg (38-42); pH Blood Venous 7.52 (7.34-7.37)
[2018-10-01 21:41] LABS: Alanine Aminotransfer (ALT/SGP 12 U/L (12-78); Albumin, Blood 1.8 g/dL (3.4-5.0); Albumin/Globulin Ratio 0.5 (0.8-1.8); Alk Phos 105 U/L (50-136); Anion Gap 4 mmol/L (6-16); Aspartate Aminotrans (AST/SGOT 14 U/L (12-37); Bilirubin, Total 0.2 mg/dL (0.1-1.0); Blood Urea Nitrogen 11 mg/dL (8-24); Bun/Creatinine Ratio 25.9 (12.0-20.0); CO2, Blood 31 mmol/L (21-32); Calcium, Blood 8.5 mg/dL (8.5-10.1); Chloride, Blood 102 mmol/L (98-108); Creatinine, Blood 0.43 mg/dL (0.40-1.00); Globulin, Blood 3.7 g/dL (2.2-4.0); Glomerular Filtration Rate >60 (60-); Glucose, Blood 141 mg/dL (70-99); Potassium, Blood 4.2 mmol/L (3.5-5.5); Sodium, Blood 137 mmol/L (136-145); Total Protein, Blood 5.5 g/dL (6.4-8.2); Troponin I 0.046 ng/mL (0.000-0.040)
[2018-10-01] MEDS ORDERED: BUSP5 PO (21:59)
[2018-10-02 04:17] LABS: Hematocrit 38.8 % (33.0-51.0); Hemoglobin 11.4 g/dL (11.5-16.0); Mean Corpuscular HGB 29.1 pg (26.0-34.0); Mean Corpuscular HGB Conc 29.4 g/dL (31.5-36.5); Mean Corpuscular Volume 99 fL (80-100); Mean Platelet Volume 9.9 fL (9.1-12.4); Platelet Count 324 K/mm3 (150-400); RDW Coefficient Variation 15.6 % (11.7-14.2); RDW Standard Deviation 57.1 fL (35.1-46.3); Red Blood Cell Count 3.92 M/mm3 (3.80-5.20); White Blood Cell Count 9.04 K/mm3 (4.00-11.30)
[2018-10-02 04:32] LABS: International Normalized Ratio 1.25
[2018-10-02 04:42] LABS: Alanine Aminotransfer (ALT/SGP 10 U/L (12-78); Albumin, Blood 2.7 g/dL (3.4-5.0); Albumin/Globulin Ratio 0.8 (0.8-1.8); Alk Phos 95 U/L (50-136); Anion Gap 5 mmol/L (6-16); Aspartate Aminotrans (AST/SGOT 14 U/L (12-37); Bilirubin, Total 0.3 mg/dL (0.1-1.0); Blood Urea Nitrogen 11 mg/dL (8-24); Bun/Creatinine Ratio 30.8 (12.0-20.0); CO2, Blood 33 mmol/L (21-32); Calcium, Blood 8.8 mg/dL (8.5-10.1); Chloride, Blood 100 mmol/L (98-108); Creatinine, Blood 0.36 mg/dL (0.40-1.00); Globulin, Blood 3.5 g/dL (2.2-4.0); Glomerular Filtration Rate >60 (60-); Glucose, Blood 107 mg/dL (70-99); Sodium, Blood 138 mmol/L (136-145); Total Protein, Blood 6.2 g/dL (6.4-8.2)
[2018-10-02 04:56] LABS: Source, Urine Catheter
[2018-10-02 05:06] LABS: Bilirubin, Urine Neg (Neg); Blood, Urine 4+ (Neg); Glucose Qualitative, Urine Neg (Neg); Ketones, Urine Neg (Neg); Leukocyte Esterase, Urine 3+ (Neg); Nitrite, Urine Neg (Neg); Protein, Urine 1+ (Neg); Specific Gravity, Urine 1.005 (1.003-1.022); Urobilinogen, Urine NORM (Normal); pH, Urine 6.5 (5.0-8.0)
[2018-10-02 05:07] LABS: Appearance, Urine Hazy (Clear); Color, Urine Pale Yellow (P-Yellow)
[2018-10-02 05:32] LABS: Bacteria Few /hpf; Squamous Epithelial Cells Many /hpf (Few); White Blood Cells, Urine TNTC /hpf (0-5); Yeast/Fungi Urine Many /hpf
--- NOTE | 2018-10-02 07:23 | NUR ---
SHIFT SUMMARY; PATIENT ARRIVED TO THE PCU ABOUT 0030 THIS AM; SHE DENIES PAIN A THIS TIME. PT LIVES WITH HER FAMILY WHO CARE FOR HER. PATIENT SKIN IS IN SEVERELY BAD CONDITION. WIDE SPREAD RASH, MACERATION, PEELING, SLOUGHING SKIN IN PLACES. 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 ONE ON THE UPPER BACK, ONE ON THE RIGHT GLUTEAL FOLD JUST BELOW THE BUTTOCK, AND A SIMILAR ONE ON THE LEFT. THE RASH IS SEVERE AND EXTENSIVE. ON ARRIVAL IT WAS CLEAR THAT PATIENT HAD BEEN SITTING IN STOOL FOR A LENGTH OF TIME. STOOL IN THE LARGE ULCER, WOUND WAS CLEANED AND PACKED AND RE-DRESSED. ADMISSION ASSESSMENTS COMPLETED. CALL MERCEDES WITHIN REACH.
--- NOTE | 2018-10-02 08:00 | NUR ---
pt laying in bed, she says she is doing ok, a/ox3, but forgetful. no complaints this am. takes po meds whole with applesauce. picc line to [facility] site is clear and patent, pt came with it. she is currently on 2 liters, sats in hte 's. grandson in to see her. sbp in the 's Dr. Cameron in to see her, and increased her metoprolol, and wants it given. call light in reach.
[2018-10-03 03:52] LABS: BASOPHILS ABSOLUTE AUTO 0.06 K/mm3 (0.00-0.23); BASOPHILS PERCENT AUTO 1 % (0-2); EOSINOPHILS ABSOLUTE AUTO 1.01 K/mm3 (0.00-0.68); EOSINOPHILS PERCENT AUTO 11 % (0-6); Hematocrit 37.6 % (33.0-51.0); Hemoglobin 11.4 g/dL (11.5-16.0); IMMATURE GRAN ABSOLUTE AUTO 0.02 K/mm3 (0.00-0.10); IMMATURE GRAN PERCENT AUTO 0 % (0-1); LYMPHOCYTES ABSOLUTE AUTO 1.79 K/mm3 (0.84-5.20); LYMPHOCYTES PERCENT AUTO 20 % (21-46); MONOCYTES ABSOLUTE AUTO 0.72 K/mm3 (0.16-1.47); MONOCYTES PERCENT AUTO 8 % (4-13); Mean Corpuscular HGB 29.2 pg (26.0-34.0); Mean Corpuscular HGB Conc 30.3 g/dL (31.5-36.5); Mean Platelet Volume 9.6 fL (9.1-12.4); NEUTROPHILS ABSOLUTE AUTO 5.34 K/mm3 (1.96-9.15); NEUTROPHILS PERCENT AUTO 60 % (41-73); Platelet Count 317 K/mm3 (150-400); RDW Coefficient Variation 15.9 % (11.7-14.2); RDW Standard Deviation 55.2 fL (35.1-46.3); Red Blood Cell Count 3.91 M/mm3 (3.80-5.20); White Blood Cell Count 8.94 K/mm3 (4.00-11.30)
[2018-10-03 03:53] LABS: Mean Corpuscular Volume 96 fL (80-100)
[2018-10-03 04:13] LABS: Anion Gap 6 mmol/L (6-16); Blood Urea Nitrogen 10 mg/dL (8-24); Bun/Creatinine Ratio 26.8 (12.0-20.0); CO2, Blood 32 mmol/L (21-32); Calcium, Blood 8.7 mg/dL (8.5-10.1); Chloride, Blood 102 mmol/L (98-108); Creatinine, Blood 0.37 mg/dL (0.40-1.00); Glomerular Filtration Rate >60 (60-); Glucose, Blood 95 mg/dL (70-99); Potassium, Blood 4.1 mmol/L (3.5-5.5); Sodium, Blood 140 mmol/L (136-145)
--- NOTE | 2018-10-03 07:11 | NUR ---
PATIENTWAS PLEASE AND COOPERATIVE WITH CARE HTIS SHIFT,. WOUND CARE PERFORMED. ATTEMPTED TO BATH THE PATIENT BUT HER SKIN IS LITERALLY SPRINGING LEAKS BEFORE MY EYES. MAXINE DARK BLOOD FROM DECUBITUS ULCER. CLEANED AND REPACKED WOUND. APPLIED PETROLEUM GAUZE THEN 4X4S AND ABD BANDAGE. THIS PATIENT NEEDS A WOUND CARE CONSULT
--- NOTE | 2018-10-03 08:00 | NUR ---
PT LAYING IN BED CALLED OUT CURRY REPORT THIS AM STATES SHE CAN'T BREATH, SATS AT 80% ON 2 LITERS, SAT HER UP AND TURNED O2 TO 6 LITERS, SHE IS MOUTH BREATHING, PLACED CANNULA IN HER MOUTH, NO CHANGE IN SATS, CALLED RT FOR TX, THIS HELPED AND WAS ABLE TO BRING HER BACK DOWN TO 2 LITERS, LUNGS ARE CLEAR IN UPPER REAL, OCC WHEEZE T/O, SOME RHONCHI IN BASES, RESP EVEN AND MILDLY LABORED, WEAK COUGH EFFORT, SHE IS A/OX3, PLEASANT AND COOPERATIVE WITH CARE, FOLLOWS COMMANDS WELL, DENIES PAIN AT THIS TIME, HRIRR, TELE IN PLACE RUNNING CHRONIC AFIB PER MONITOR SEE STRIP, EDEMA NOTED TO LEGS AND ARMS, SHE IS ALSO HEAVY SO SOME COULD BE BODY HABITUS, HAS HEEL PROTECTORS IN PLACE THAT SHE STATES STAY ALL THE TIME, PICC LINE NOTED TO JESSI SITE IS CLEAR AND PATENT, BTX4 ABD FLAT SOFT NONTENDER, HAS A SUPRA PUBIC CATH DRAINING PB URINE WITH SEDIMENT, SKIN HAS WOUND TO COCCYX, DRESSING WAS CHANGED CURRY THE NIGHT, BED BATH WAS GIVEN THIS AM, DID CLEAN UNDER HER BREAST IT IS MOIST, AND APPLIED NYSTATIN, RASH NOTED TO TRUNK AND EXT. NOT JUST UNDER FOLDS BUT ACROSS HER ABD AND BACK, SHE THINKS IT'S A REACTION THE ANTIBIOTICS, MOVES UPPER EXT WELL, UNABLE TO MOVE LEGS, IS WEAK THOUGH, CARROLL, TAKES PO MEDS WITH APPLESAUCE, FEEDS HERSELF, CALL LIGHT IN REACH.
--- NOTE | 2018-10-03 11:22 | NUR ---
PT HAS HAD SEVERAL EPISODES OF VERY SOB, PT DENIES ANXIETY AT THE TIME, SATS DROP TO LOW 80'S, IS NOT ABLE TO COUGH TO CLEAR SECRETIONS, WEAK EFFORT, DID NOT NOTE ANY SIGNS OF COUGHING OR CHOKING DURRING MEDICATION PASS OR EATING BREAKFAST. DID NOT HAVE ANY PROBLEMS WITH THIS LAST NIGHT, CALL TO DR. MALONEY, ORDER FOR CHEST XRAY AND SPEECH EVAL RECIEVED. CALL LIGHT IN REACH.
--- NOTE | 2018-10-03 13:30 | NUR ---
ASSUMED CARE: PT RESTING IN BED, NASAL CANNULA IN PLACE. LUNG SOUNDS DIMINISHED IN BASES, SATTING 95% ON 2L O2, ANXIOUS AT TIMES. ASKING FOR FREQUENT REPOSITIONING
--- NOTE | 2018-10-03 18:06 | NUR ---
SHIFT SUMMARY: PT HAS FAMILY AT BEDSIDE AT THIS TIME. SHE IS ALERT AND ORIENTED, REPOSITION Q2. NYSTATIN APPLIED ONCE FOR YEAST, RT PROVIDING BREATHING TX, PT DESATS WITH ANXIETY, IMPROVED AFTER TREATMENT, XRAY AND LASIX ADDED PER RT SUGGESTION. NO FURTHER NEEDS OR CONCERNS AT THIS TIME.
--- NOTE | 2018-10-03 22:14 | NUR ---
RAPID HR/PROVIDER IN TO ASSIST PT PER PRIMARY RN REQUEST. PT REPORTING INCREASING SHORTNESS OF BREATH THAT DID NOT IMPROVE WITH BREATHING TX. VITAL SIGNS STABLE. O2 SATS OF 94% ON 4L VIA NASAL CANNULA. PT STATES THAT "WHEN THIS HAPPENED BEFORE, THEY GAVE ME A SHOT TO MAKE IT BETTER". PT WITH INCREASED HEARTRATE IN THE 130-140'S WITH AFIB RHTYHM. SPOKE WITH SIMBA ROSARIO NP, AND RECEIVED ORDERS FOR 5MG IV METOPROLOL PUSH.
[2018-10-04 04:50] LABS: Anion Gap 5 mmol/L (6-16); Blood Urea Nitrogen 8 mg/dL (8-24); Bun/Creatinine Ratio 23.3 (12.0-20.0); CO2, Blood 33 mmol/L (21-32); Calcium, Blood 8.7 mg/dL (8.5-10.1); Chloride, Blood 101 mmol/L (98-108); Creatinine, Blood 0.34 mg/dL (0.40-1.00); Glomerular Filtration Rate >60 (60-); Glucose, Blood 97 mg/dL (70-99); Sodium, Blood 139 mmol/L (136-145)
--- NOTE | 2018-10-04 05:12 | NUR ---
Shift Summary No acute changes this shift. Pt with mild SOB at times, resolved with repositions and PRN RT tx. VSS. No events on tele. Pt with one episode of increased HR to 130's and accompanied SOB. MIMI Stoddard notifed and 5mg Lopressor IV once ordered and given per orders with stated relief. Pt repositioned q2, wound care and dressing change provided, pt resting comfortably throughout shift. Pt is in no apparent sign of distress. Pt able to make needs known, uses call light approrpiately, remains alert and oriented. No changes from initial shift assessment. WIll continue to monitor and update as needed until day RN assumes care.
--- NOTE | 2018-10-04 07:38 | NUR ---
ASSUMED CARE: PT RESTING IN BED. RT AT BEDSIDE GIVING BREATHING TX. NO ACUTE NEEDS AT THIS TIME.
--- NOTE | 2018-10-04 15:12 | NUR ---
Pal Spiritual Care intial note: Sofi was awake, alert, and being visited by her dtr and grand-daughter. Family appears loving and devoted. Sofi smiles easily and was a delight to visit. She wanted me to pray for healing. She states she knows she is nearing end-of-life, but is hoping for a "couple more years with my family." Sofi and her family responded well to affirmation of love and prayer. oSfi expects to be discharged tomorrow. I will remain available.
--- NOTE | 2018-10-04 16:11 | NUR ---
CALL TO DR KING TO LET HER KNOW THAT PT'S YEAST SEEMS TO BE ALL OVER BODY IN ALL SKIN FOLDS AND ON THE SURFACE IN SOME AREAS. ALSO AWARE THAT PT IS SO MOIST SHE IS OOZING. DR CHANGED NYSTATIN FROM POWDER TO CREAM AND WILL LOOK INTO RECOMMENDED DOSING OF DIFLUCAN.
--- NOTE | 2018-10-04 18:36 | NUR ---
SHIFT SUMMARY: PT RESTING QUIETLY, REPOSITIONING NEEDED, UNABLE TO REPOSITION SELF. DRESSINGS CHANGED TO WOUNDS, DISCUSSED SKIN YEAST INFECTION WITH DR KING. FAMILY CAME TO VISIT ONCE THIS SHIFT. PT MEDICATED X2 FOR PAIN IN NECK AND SHOULDERS. NO EVENTS PER TELE. NO FURTHER NEEDS OR CONCERNS
--- NOTE | 2018-10-05 05:46 | NUR ---
SHIFT SUMMARY PT SLEEPING COMFORTBALY IN ROOM AT THIS TIME. NO AUTE CHANGES IN STATUS T/O NIGHT. PT SLEPT WELL, AND WOKE EASILY FOR Q2HR TURNES. DRESSING CHANGE TO WOUND ON BACKSIDE DONE, AND SKIN CLEANSED. RESP EVEN UNLBOARED ON 4L NC W/ SATS >92%. PT HAS PILLOWS UNDER BOTH ARMS FOR COMFORT AND PILLOW UNDER HIP TO PREVENT FURTHER WOUND DAMAGE. DENIES CP. PT WAS MEDICATED ONCE FOR SHOULDER PAIN. CALL LIGHT IS IN REACH. PT CALLS APPROPRIATELY.
--- NOTE | 2018-10-05 17:55 | NUR ---
SHIFT SUMMARY PT A&Ox3. ANXIOUS AT TIMES, COOPERATIVE WITH CARE. PT RESTING IN BED, APPEARS TO BE SLEEPING INTERMITTENTLY. 2-3 PERSON ASSIST WITH REPOSITIONING Q2. PT SOB AT REST THIS AM, ON 6L O2 VIA NC, RIGHT SIDE LUNG DIM AND LLL DIM. THIS AFTERNOON, PT ASKED FAMILY TO LOWER O2 TO 3L, WHEN THIS RN TO ROOM PT >94% ON 3L O2, LS LESS DIM ON RIGHT SIDE, WITH CRACKLES NOTED. THIS AFTERNOON, DENIES SOB AT REST, ON 3L O2 VIA NC, SPO2 >94%. PT REPORTS BILATERAL SHOULDER PAIN, MEDICATED x1 PER EMAR WITH POSITIVE RESULTS. PT DENIES NAUSEA T/O SHIFT. PT RECEIVING BUMEX IV. SUPRAPUBIC CATHETER IN PLACE, CLEANED AND NEW DRESSING PLACED. CATHETER PATENT AND DRAINING. HR 110-120'S, AFIB PER TELE. OTHER VSS. NO OTHER ACUTE CHANGES NOTED DURING SHIFT. WILL CONTINUE TO MONITOR UNTIL REPORT GIVEN TO ONCOMING RN.
--- NOTE | 2018-10-05 18:03 | NUR ---
Met with patient to review needs. Pt complains of worsening anexiety. Pt denies headaches, ringining in ears or balance disturbance. No changes in vision oral health is adequate. Some difficulty swallowing because of worry of dyapnea. Denies and choking or coughing with food or fluids. pt denies chast pain but sorness to arms and general body she has some stress with ventilation. Pt states fran started when her picc line had difficulties with her antibiotic infussion. She states struggling since this episode. Pt denies nausea or GERD no constipation or diarrhea. Pt has general pain she denies spasms. States she has been taking the narcotics since being here and they are helping. She does take some tylenol at home and use topical she rotates heat and ice and it helps. She states PT and increasing her mobility does not help the pain makes it worse some times. We reviewed medications will review with hopitalist about her gabipentin frequency and suggest TID. We reviewed diversion activities and air hunger. Pt states she has a very harmonious home environment and many friends who support her. She is fearfull of her brething getting worse. She has lost some abilites with her hands that are upsetting to her. We reviewed advance diretives and asked that we meet with her daughter to fill one out. She wants to speak with daughter she may have one at home. Will follow up with patient.
--- NOTE | 2018-10-05 19:44 | NUR ---
REPORT GIVEN TO FLAVIO AQUINO RN ON MEDICAL FLOOR. PT TRANSFERED TO 345.
--- NOTE | 2018-10-05 19:45 | NUR ---
Transfer report from Brittani JOHNSON on complex PT being transferred from PCU 12. 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 PT has afib o2 dependent baseline 3 l. Hx of spinal fxs and paraplegia, obesity, pressure ulcer nonhealing, chronic pain, reoccuring pneumonia aspiration, and other problems. Await transfer.
--- NOTE | 2018-10-06 00:29 | NUR ---
83 YEAR OLD fEMALE TRANSFERRED FROM PCU to medical floor at 2009. Her DTR and Granddtr accompany her. She lives with them and has Home Health services with daily IV antibiotic infusion x 6 weeks once daily via PICC line. Has AFIB baseline and oxygen dependent but became increasingly SOB and came to hospital and found to have AFIB with RVR. Transferred on 3 l nc and has cont pulse oximetry with sats 94 percent. Recieves neb treatments. PT had paralysis x 5 years after spine surgery. Morbid obesity, neurogenic bladder with suprapubic cath. IN contact isolation for ESBL, VRE, has results pending from wound cultures for MRSA. # max assist to turn and reposition. Skin has scalded peeling appearance with yeasty smell skin folds. 2 decubs bilat buttock, wet to dry dressing changes done, Skin folds tx and specialized bed ordered to provide provide pressure relief.
[2018-10-06 06:02] LABS: Anion Gap 7 mmol/L (6-16); Blood Urea Nitrogen 8 mg/dL (8-24); Bun/Creatinine Ratio 24.9 (12.0-20.0); CO2, Blood 34 mmol/L (21-32); Calcium, Blood 7.9 mg/dL (8.5-10.1); Chloride, Blood 98 mmol/L (98-108); Creatinine, Blood 0.32 mg/dL (0.40-1.00); Glomerular Filtration Rate >60 (60-); Glucose, Blood 84 mg/dL (70-99); Magnesium, Blood 1.6 mg/dL (1.6-2.4); Potassium, Blood 3.3 mmol/L (3.5-5.5); Sodium, Blood 139 mmol/L (136-145)
--- NOTE | 2018-10-06 09:39 | NUR ---
PT BLOOD PRESSURE OF 91/61 AT RECHECK THIS AM. SPOKE WITH DR GARDNER AND PER DR GARDNER GO AHEAD AND GIVE TOPROL XL 125MG AND IV BUMEX DESPITE BP. HR REPORTS WE ARE TREATING AGRESSIVELY.
--- NOTE | 2018-10-06 09:42 | NUR ---
Echocardiogram completed.
--- NOTE | 2018-10-06 10:59 | NUR ---
CONSULT CALLED TO DR ATWOOD OFFICE.
--- NOTE | 2018-10-06 10:59 | NUR ---
ATTEMPTED TO MANUALLY BLADDER IRRIGATE SUPRAPUBIC CATHETER. MINIMAL URINE OUTPUT NOTED THIS AM AND SOME DRAINAGE TO BED. CATHETER FLUSHED WELL BUT COULD NOT GET TO PULL BACK, ATTEMPTED MULTIPLE TIMES. WILL MONITOR OUTPUT AT THIS TIME, IF MINIMAL OUTPUT OR CONTINUED LEAKING WILL ASK TO REPLACE.
--- NOTE | 2018-10-06 16:34 | NUR ---
PT GRANDDAUGHTER AT BEDSIDE. PT NOTED TO HAVE FREQUENT LEAKAGE TODAY FROM SUPRAPUBIC/ URETHRA. PER GRAND DAUGHTER PT FREQUENTLY LEAKS FROM URETHRA EVEN AFTER NEW SUPRAPUBIC CHANGED. GRAND DAUGHTER ALSO REPORTS PT HAD RUN OUT OF IV ANTIBIOTICS AT HOME AND THEY HAD CALLED DR HERRERA REGARDING THIS AND WERE WAITING ON A CALL BACK FROM HER WHETHER TO CONTINUE, DR HERRERA WAS TO CONTACT DR TODD. PT ALSO REPORTS THEY DO A WET TO DRY DRESSING CHANGED TWICE A DAY, SHE REPORTS THEY HAVE TRIED A WOUND VAC IN THE PAST BUT SHE WAS TO WET DOWN THERE TO WORK.
--- NOTE | 2018-10-06 17:36 | NUR ---
SHIFT SUMMARY- PT A/O, FORGETFUL AT TIMES. PT MEDICATED X1 FOR CHRONIC SHOULDER/ UPPER BACK. PT PARAPLEGIC, REQUIRES FREQUENT TURNS IN BED. PT PLACED ON AIRBED TODAY. LS COARSE WITH PRODUCTIVE COUGH WITH YELLOW SPUTUM. SUCTION SET UP AT BEDSIDE. PT USING FLUTTER. TELE AFIB AT 105. BP LOW THIS AM. WOUND TO RIGHT BUTTOCK CHANGED X3 THIS SHIFT. REDNESS/ RASH TO ABD FOLDS, BUTTOCKS, BUE. PT NOTED TO HAVE URINE LEAKAGE, SUPRAPUBIC INTACT AND IRRIGATED, DRAINING APPEARS TO BE FROM URETHRA. 3+ BLE EDEMA, BOOTS IN PLACE. DR RAMIREZ CONSULTED. NO OTHER ACUTE CHANGES THIS SHIFT.
[2018-10-07] MEDS ORDERED: FLUC100 PO (01:09)
--- NOTE | 2018-10-07 03:04 | NUR ---
Pt continues with skin issues that requires treatment. PT continues with 2 decubitus ulcers buttock hip and scalded appearing peeling skin abd groin breasts back. karaclense to areas and calmaseptic applied with helpful effect to decrease redness itching peeling. DR Carias saw decubitus ulcers and recommends just dry gauze covered by exudry to rt buttock and foam dressing lt hip. Appetite good. Decreased urine leakage after suprapubic cath irrigated on day shift. Airbed provided to prevent further skin breakdown. PT refused christoph hose. Decreased edema on BID Bumex with wrinkles now present on UE bilat. Wound and urine cultures not finalized VRE and ESBL appear to be growing, hx of both. Continues in contact isolation. Family was in and supportive. Plan to dc home with home health when ordered.
[2018-10-07 06:16] LABS: Anion Gap 7 mmol/L (6-16); Blood Urea Nitrogen 10 mg/dL (8-24); Bun/Creatinine Ratio 27.9 (12.0-20.0); CO2, Blood 35 mmol/L (21-32); Calcium, Blood 8.1 mg/dL (8.5-10.1); Chloride, Blood 100 mmol/L (98-108); Creatinine, Blood 0.36 mg/dL (0.40-1.00); Glomerular Filtration Rate >60 (60-); Glucose, Blood 94 mg/dL (70-99); Potassium, Blood 3.4 mmol/L (3.5-5.5); Sodium, Blood 142 mmol/L (136-145)
[2018-10-07] MEDS ORDERED: Aspirin EC81 MG PO (12:42)
[2018-10-07] MEDS ORDERED: POTA10T PO (12:43)
[2018-10-07] MEDS ORDERED: TORSE20 PO (12:43)
[2018-10-07] MEDS ORDERED: EUCERIN DAILY400 ML TOP (12:43)
--- NOTE | 2018-10-07 13:13 | NUR ---
SPOKE WITH DAUGHTER ARON ABOUT DISCHARGE ORDERS. PER DAUGHTER SHE IS IN [place] AT THIS TIME BUT IS HEADING BACK HOME SHORTLY TO COME TO HOSPITAL. PT WILL NEED GURNEY TRANSPORT PER DAUGHTER, SHE IS TRANSLINK. PER DR KENDRA KAPLAN PICC PRIOR TO DISCHARGE, PT COMPLETED HOME IV ANTIBIOTICS. RX FAXED TO [facility] AND F/U APPT MADE WITH PCP.
--- NOTE | 2018-10-07 13:13 | NUR ---
PT ANXIOUS ABOUT DISCHARGE HOME. PT REPORTS SHE TAKES HER BUSPAR UP TO THREE TIMES A DAY FOR ANXIETY PER HER PCP. SPOKE WITH DR GARDNER WHO OK'S ONE TIME DOSE OF BUSPAR.
--- NOTE | 2018-10-07 15:45 | NUR ---
DISCHARGE INSTRUCTIONS REVIEWED WITH PT AND DAUGHTER. WOUND CARE EXPLAINED WELL RECOMMENDATIONS BY DR RAMIREZ TO F/U WITH UROLOGIST REGARDING URINE LEAKAGE. WOUND CARE COMPLETED PRIOR TO DISCHARGE WELL BEDBATH AND PHOTOS TAKEN. PICC DC'D BY PROCEDURE NURSE PER DR GARDNER REQUEST. TRANSLINK NOTIFIED FOR TRANSPORT HOME, AWAITING CONFIRMATION OF TIME.
--- NOTE | 2018-10-07 16:59 | NUR ---
PT DC'D HOME VIA GURNEY TRANSPORT AT 1640, DAUGHTER TO MEET AT HOME.
== END 2018-10-07 16:41 | disposition home health service (06) | DRG 280 ==
LOC: ER 20:16 → PCU 20:17 → MEDS 10-02 15:14 → PCU 10-05 20:11 → MEDS 10-05 20:24
PROVIDERS: Emergency Medicine; Hospitalist; Internal Medicine; Nurse Practitioner Acute Care; ADMIT Hospitalist
DX: I11.0 Hypertensive heart disease with heart failure (principal); L89.314 Pressure ulcer of right buttock, stage 4; I21.A1 Myocardial infarction type 2; J96.20 Acute and chronic respiratory failure, unspecified whether with hypoxia or hypercapnia; G82.20 Paraplegia, unspecified; J98.11 Atelectasis; Z68.41 Body mass index [BMI] 40.0-44.9, adult; I24.8 Other forms of acute ischemic heart disease; I50.33 Acute on chronic diastolic (congestive) heart failure; J44.9 Chronic obstructive pulmonary disease, unspecified; E03.9 Hypothyroidism, unspecified; E66.01 Morbid (severe) obesity due to excess calories; N31.9 Neuromuscular dysfunction of bladder, unspecified; G89.4 Chronic pain syndrome; Z99.81 Dependence on supplemental oxygen; I48.2 Chronic atrial fibrillation; Z79.01 Long term (current) use of anticoagulants; F32.9 Major depressive disorder, single episode, unspecified; Z87.891 Personal history of nicotine dependence
CPT/HCPCS: 36415; 71045; 80048; 80053; 81001; 82803; 83735; 83880; 84145; 84443; 84484; 85025; 85027; 85610; 85651; 86140; 87077; 87081; 87086; 92610; 93005; 93010; 93306; 94640; 94667; 94760; 94762; 99285-25; G0378; J1940; P9046

== ENCOUNTER → 2018-10-21 | Outpatient (CLI) | payer MEDICARE, OTHER ==
[~2018-10-21] MED LIST changes: +Advair Hfa 115-12 GM INH; +Aldactone50 MG PO; +Aspirin EC81 MG PO; +EUCERIN DAILY400 ML TOP; +FLUC100 PO; +POTA10T PO; +TORSE20 PO; +Zoloft100 MG PO
[2018-10-21 18:00] LABS: Bilirubin, Urine Neg (Neg); Blood, Urine 5+ (Neg); Glucose Qualitative, Urine Neg (Neg); Ketones, Urine 1+ (Neg); Leukocyte Esterase, Urine 3+ (Neg); Nitrite, Urine Pos (Neg); Protein, Urine 3+ (Neg); Specific Gravity, Urine 1.015 (1.003-1.022); Urobilinogen, Urine NORM (Normal)
[2018-10-21 18:24] LABS: Appearance, Urine Cloudy (Clear); Color, Urine Red (P-Yellow)
[2018-10-21 18:26] LABS: Red Blood Cells, Urine TNTC /hpf (0-2); White Blood Cells, Urine TNTC /hpf (0-5)
[2018-10-21 18:27] LABS: Bacteria Many /hpf; Squamous Epithelial Cells Rare /hpf (Few)
== END | disposition home or self-care (01) ==
LOC: LAB SHORT 17:47 → LAB 17:47
PROVIDERS: Internal Medicine
DX: R82.71 Bacteriuria (principal)
CPT/HCPCS: 81001; 87086

== ENCOUNTER 2018-10-28 01:04 | Day surgery (SDC) | payer MEDICARE, OTHER ==
[~2018-10-28 01:04] MED LIST changes: -Advair Hfa 115-12 GM INH; -Aldactone50 MG PO; -Zoloft100 MG PO
== END 2018-10-28 22:57 | disposition home or self-care (01) ==
LOC: WOUND 01:04
DX: L89.314 Pressure ulcer of right buttock, stage 4 (principal); L89.324 Pressure ulcer of left buttock, stage 4; L89.613 Pressure ulcer of right heel, stage 3; L89.893 Pressure ulcer of other site, stage 3; I10 Essential (primary) hypertension; Z87.891 Personal history of nicotine dependence; M86.9 Osteomyelitis, unspecified
CPT/HCPCS: 87071; 87075; 87077; 87102; 87186; 87205

== ENCOUNTER 2018-11-02 10:45 | Inpatient (IN) | payer MEDICARE, OTHER ==
[~2018-11-02] VITALS: Ht 152.4 cm; Wt 98.9 kg
[2018-11-02] MEDS ORDERED: AMOCLA875 PO (11:51)
[2018-11-02 13:12] LABS: BASOPHILS ABSOLUTE AUTO 0.07 K/mm3 (0.00-0.23); BASOPHILS PERCENT AUTO 0 % (0-2); EOSINOPHILS ABSOLUTE AUTO 0.03 K/mm3 (0.00-0.68); EOSINOPHILS PERCENT AUTO 0 % (0-6); Hematocrit 40.4 % (33.0-51.0); Hemoglobin 12.6 g/dL (11.5-16.0); IMMATURE GRAN ABSOLUTE AUTO 0.26 K/mm3 (0.00-0.10); IMMATURE GRAN PERCENT AUTO 1 % (0-1); LYMPHOCYTES ABSOLUTE AUTO 1.42 K/mm3 (0.84-5.20); LYMPHOCYTES PERCENT AUTO 5 % (21-46); MONOCYTES ABSOLUTE AUTO 1.77 K/mm3 (0.16-1.47); MONOCYTES PERCENT AUTO 6 % (4-13); Mean Corpuscular HGB 28.3 pg (26.0-34.0); Mean Corpuscular HGB Conc 31.2 g/dL (31.5-36.5); Mean Corpuscular Volume 91 fL (80-100); Mean Platelet Volume 9.7 fL (9.1-12.4); NEUTROPHILS ABSOLUTE AUTO 24.31 K/mm3 (1.96-9.15); NEUTROPHILS PERCENT AUTO 87 % (41-73); Platelet Count 554 K/mm3 (150-400); RDW Coefficient Variation 14.8 % (11.7-14.2); RDW Standard Deviation 49.5 fL (35.1-46.3); Red Blood Cell Count 4.45 M/mm3 (3.80-5.20); White Blood Cell Count 27.86 K/mm3 (4.00-11.30)
[2018-11-02 13:32] LABS: Alanine Aminotransfer (ALT/SGP 10 U/L (12-78); Albumin, Blood 1.6 g/dL (3.4-5.0); Albumin/Globulin Ratio 0.3 (0.8-1.8); Alk Phos 124 U/L (50-136); Anion Gap 7 mmol/L (6-16); Aspartate Aminotrans (AST/SGOT 13 U/L (12-37); Bilirubin, Total 0.6 mg/dL (0.1-1.0); Blood Urea Nitrogen 16 mg/dL (8-24); Bun/Creatinine Ratio 29.4 (12.0-20.0); CO2, Blood 29 mmol/L (21-32); Chloride, Blood 93 mmol/L (98-108); Creatinine, Blood 0.55 mg/dL (0.40-1.00); Globulin, Blood 4.7 g/dL (2.2-4.0); Glomerular Filtration Rate >60 (60-); Glucose, Blood 109 mg/dL (70-99); Potassium, Blood 4.5 mmol/L (3.5-5.5); Sodium, Blood 129 mmol/L (136-145); Total Protein, Blood 6.3 g/dL (6.4-8.2); Troponin I <0.015 ng/mL (0.000-0.040)
[2018-11-02] MEDS ORDERED: Zoloft100 MG PO (15:32)
[2018-11-02] MEDS ORDERED: Advair Hfa 115-12 GM INH (15:33)
[2018-11-02] MEDS ORDERED: Aldactone50 MG PO (15:34)
--- NOTE | 2018-11-02 19:26 | NUR ---
pt admitted TO ICU-2 VIA STRETCHER. PT IS A/O. WILL REQUIRE SACRUM WOUND PHOTOS. PT IS ON O2 2L AND HAS A MOIST COUGH THAT SHE STATES IS CHRONIC AND NON-PRODUCTIVE. ASCULTASTION REVEALS RONCHI BUT NO CRACKLES. CARDIZEM GTT IS 10MG AND LR IS AT CURRENT 500ML BOLUS RATE. WILL REPORT TO NOC.
--- NOTE | 2018-11-03 00:35 | NUR ---
HOSPITALIST NOTIFIED: THIRD CALL TO HOSPITALIST RE: PREVIOUS CALLS AND NEW ORDERS GIVEN WITH NO IMPROVEMENT TO BP. PT WITH NO COMPLAINTS AND LACTIC ACID NOTED AT 0.9. CURRENT NEW ORDERS TO GIVE ANOTHER FLUID BOLUS NS 500mL FOR MAP >60. CALL BACK IF NO IMPROVEMENT.
--- NOTE | 2018-11-03 01:00 | NUR ---
HOSPITALIST TO BEDSIDE: PT AWAKENED EASILY. HOSPITALIST UPDATED C/ URINE OUTPUT ONLY 65cc THUS FAR THIS SHIFT AND KIDNEY FUNCTION WNL PER LAST LABS. VERBAL ORDERS TO CONTINUE CURRENT NS 500cc BOLUS AND THEN ADMINISTER ANOTHER 500cc BOLUS FOR A DAILY TOTAL OF 5000 cc OF FLUID.
[2018-11-03 01:13] LABS: Source, Urine Catheter
[2018-11-03 01:16] LABS: Bilirubin, Urine Neg (Neg); Blood, Urine 5+ (Neg); Glucose Qualitative, Urine Neg (Neg); Ketones, Urine 2+ (Neg); Leukocyte Esterase, Urine 3+ (Neg); Nitrite, Urine Neg (Neg); Protein, Urine 3+ (Neg); Urobilinogen, Urine NORM (Normal)
[2018-11-03 01:20] LABS: Appearance, Urine Cloudy (Clear); Color, Urine Yellow (P-Yellow)
[2018-11-03 01:23] LABS: Amorphous Heavy (0-Heavy); Bacteria Mod /hpf; Squamous Epithelial Cells Rare /hpf (Few)
--- NOTE | 2018-11-03 01:51 | NUR ---
HOSPITALIST NOTIFIED: PT C/O R BREAST PAIN. R BREAST ENLARGED AND WEEPING. 20g TO R BREAST WITH NO BLOOD DRAW AND IS PAUSED. NS BOLUS SWITCHED TO 22g L A/C. NO NEW ORDERS AT THIS TIME. IF PT CONTINUES HYPOTENSION AFTER NS BOLUS (TL 1000cc) GIVEN THEN TO CALL BACK. NO CENTRAL LINE AT THIS TIME SINCE PT MENTATION WNL AND LA 0.9.
[2018-11-03 04:42] LABS: BASOPHILS ABSOLUTE AUTO 0.06 K/mm3 (0.00-0.23); BASOPHILS PERCENT AUTO 0 % (0-2); EOSINOPHILS ABSOLUTE AUTO 0.18 K/mm3 (0.00-0.68); EOSINOPHILS PERCENT AUTO 1 % (0-6); Hematocrit 33.5 % (33.0-51.0); Hemoglobin 10.6 g/dL (11.5-16.0); IMMATURE GRAN ABSOLUTE AUTO 0.06 K/mm3 (0.00-0.10); IMMATURE GRAN PERCENT AUTO 0 % (0-1); LYMPHOCYTES ABSOLUTE AUTO 2.06 K/mm3 (0.84-5.20); LYMPHOCYTES PERCENT AUTO 14 % (21-46); MONOCYTES ABSOLUTE AUTO 0.72 K/mm3 (0.16-1.47); MONOCYTES PERCENT AUTO 5 % (4-13); Mean Corpuscular HGB 29.2 pg (26.0-34.0); Mean Corpuscular HGB Conc 31.6 g/dL (31.5-36.5); Mean Corpuscular Volume 92 fL (80-100); Mean Platelet Volume 9.8 fL (9.1-12.4); NEUTROPHILS ABSOLUTE AUTO 11.63 K/mm3 (1.96-9.15); NEUTROPHILS PERCENT AUTO 79 % (41-73); Platelet Count 359 K/mm3 (150-400); RDW Coefficient Variation 14.8 % (11.7-14.2); RDW Standard Deviation 50.4 fL (35.1-46.3); Red Blood Cell Count 3.63 M/mm3 (3.80-5.20); White Blood Cell Count 14.71 K/mm3 (4.00-11.30)
[2018-11-03 04:47] LABS: Anion Gap 8 mmol/L (6-16); Blood Urea Nitrogen 14 mg/dL (8-24); Bun/Creatinine Ratio 32.3 (12.0-20.0); CO2, Blood 24 mmol/L (21-32); Calcium, Blood 7.9 mg/dL (8.5-10.1); Chloride, Blood 101 mmol/L (98-108); Creatinine, Blood 0.43 mg/dL (0.40-1.00); Glomerular Filtration Rate >60 (60-); Glucose, Blood 85 mg/dL (70-99); Potassium, Blood 3.9 mmol/L (3.5-5.5); Sodium, Blood 133 mmol/L (136-145)
--- NOTE | 2018-11-03 05:35 | NUR ---
SHIFT SUMMARY: REPORT FROM JAYRO JOHNSON AT START OF SHIFT. PT INTUBATED-ON SEDATION AND PRESSORS. LS CLEAR WITH LITTLE RHONCHI NOTED T/O SHIFT CLEARED WITH SUCTIONING. PT OPENS EYES DURING CARE BUT FALLS RIGHT BACK TO SLEEP. PT DID NOT TOLERATED TITRATE OFF VASOPRESSIN BECOMING HYPOTENSIVE. LEVOPHED TITRATED BETWEEN 8-12 mcg/min CURRENTLY AT 8mcg/min. VASOPRESSIN 0.04u/min, PROPOFOL AT 12 mcg, SODIUM BICARB 50mL/hr, TPN 75mL/hr. VSS.
--- NOTE | 2018-11-03 05:51 | NUR ---
SHIFT SUMMARY: BEDSIDE REPORT FROM MARY ANN JOHNSON. PT JUST ADMITTED TO ICU RM 2 FROM ER. PT A+O T/O SHIFT. LS WET/RHONCHI CLEARED WITH COUGH. PT STATED HAS HAD THE WET COUGH FOR A COUPLE YEARS NOW SINCE BEING BED BOUND. PT WITH TWO IV ACCESS ONE TO RIGHT UPPER BREAST AND ONE TO LEFT A/C. PT REMAINED HYPOTENSIVE T/O SHIFT WITH SEVERAL CALLS TO HOSPITALIST WITH SEVERAL FLUID BOLUS' GIVEN. PT LATER C/O R BREAST PAIN AND NOTED WAS RIGHT BREAST SWOLLEN WITH WEEPING EDEMA. IV FLUSHED BUT DID NOT DRAW BACK BLOOD. IV DC'D, HOSPITALIST NOTIFIED. MANAGER TRANSPORTATION LAUREA AND DR. CARLOS SEARCHED FOR A NEXT POSSIBLE IV SITE VIA ULTRA SOUND BUT DID NOT FIND ONE. WITH PT EACH TIME DENYING DIZZINESS OR S/S OF HYPOTENSION AND LA DOWN TO 0.9 IN ADDITION TO WNL KIDNEY FUNCTION. CURRENTLY VSS. PT IN CHRONIC A-FIB AND IS ON XARELTO. PT STATED HAS BEEN PARALYZED FROM A, "BACK SURGERY GONE WRONG" FIVE YEARS AGO. SKIN CARE: AT START OF SHIFT, PT'S DAUGHTER/CAREGIVER ARRIVED TO ROOM AND PT REQUESTED THAT HER CAREGIVERS ASSIST WITH TURNING. PT SUPRAPUBIC CATH REPLACED AND URINE LATER SENT WHEN PT PRODUCED ENOUGH URINE. PT WITH MODERATE YEAST RASH AND INFECTION TO LUCY, BUTTOCK, AND BREAST AREA. NYSTATIN ORDERED AND APPLIED AFTER SKIN CARE GIVEN. WOUND CARE: PT'S DAUGHTER/WARP YARN SORTER REMAINED IN ROOM AND ASSISTED WITH WOUND CARE. WOUND CARE PROVIDED VIA DAUGHTER'S INSTRUCTIONS WHICH WERE TO USE WET-TO-DRY DRESSING SINCE PT NOT ABLE TO TOLERATE WOUND VAC. WOUND CARE PROVIDED, AND PT CONSENTED TO PICTURES. PICTURES WERE TAKEN OF LUCY, BUTTOCK, AND SUPRA PUBIC ACCESS SITE. HOWEVER, PT'S DAUGHTER STATED THAT PT NOW HAS A HEEL ULCER TO RIGHT FOOT AND STATED THAT PT IS TO NOT BE LEFT WITHOUT BILATERAL LOWER EXTREM BRACES. PT THIS AM REQUESTED TO LET SLEEP AFTER FINAL LAB DRAW. PT CURRENTLY SLEEPING. VSS.
--- NOTE | 2018-11-03 08:00 | NUR ---
ASSUMED CARE ASSUMED CARE OF PT AT 0700. REPORT RECEIVED FROM ALEX DIALLO. PT SLEEPING, AROUSES TO VERBAL STIMULUS. ORIENTED WHEN AWAKE. DRIFTS BACK TO SLEEP QUICKLY WHEN UNDISTURBED. PT IN NO APPARENT DISTRESS. MONITOR SHOWS A FIB WITH HR 90-110. SBP 80-90'S WITH MAPS >65. PT DENIES ANY NAUSEA, DYSPNEA. REPORTS GENERALIZED PAIN. PT IS PARAPLEGIC WITH NO SENSATION FROM UMBILICUS DOWN. LIMITED RANGE OF MOTION OF RIGHT ARM WITH CONTRACTED HAND/WRIST. PT HAS LEA ANKLE/FOOT BRACES WHICH ARE NOT TO BE REMOVED PER PT AND DAUGHTER. PT HAS SIGNIFICANT WOUNDS TO LEA BUTTOCKS/COCCYX - SEE CHART PHOTOS. WET TO DRY DRESSINGS IN PLACE - CLEAN AND INTACT. PT ALSO HAS WOUND TO RIGHT HEEL WITH MEPILEX DRESSING IN PLACE. LEA TOES WITH ABRASIONS/SCABS - SEE PHOTOS. LUCY AREA REDDENED AND WITH YEAST - CLEANSED AND NYSTATIN APPLIED. PT HAS SUPRAPUBIC KIMBLE IN PLACE DRAINING YELLOW URINE TO GRAVITY. PT HAS 22G IV TO LEFT AC. PT HAD PRIOR INFILTRATED IV TO RIGHT CHEST/BREAST AREA - PT REPORTS PAIN TO RIGHT BREAST AND IT IS EDEMATOUS. PT HAS LR AT 125ML/HR INFUSING. PT USING CALL LIGHT FOR NEEDS. WILL CONTINUE TO MONITOR PT CLOSELY.
--- NOTE | 2018-11-03 08:30 | NUR ---
SURGICAL CONSULT SURGICAL CONSULT CALLED TO ANSWERING SERVICE FOR DR. GRANADOS TO EVAL FOR POSSIBLE WOUND DEBRIDEMENT. ANSWERING SERVICE STATES DR. GRANADOS HAS MANY SURGICAL CASES THIS MORNING AND PROBABLY WILL NOT BE ABLE TO SEE PT TIL THIS EVENING. DARCY HELD THIS AM PER DR. ALARCON IN CASE OF SURGICAL INTERVENTION.
--- NOTE | 2018-11-03 11:54 | NUR ---
DR. DORIAN ALARCON ROUNDED ON PT. PLAN TO CONSULT DR. STRINGER FOR HYPOTENSION,CRITICAL CARE MANAGEMENT. ALSO PLAN TO START VANCOMYCIN. NO ADDITIONAL ORDERS RECEIVED AT THIS TIME. DR. STRINGER NOTIFIED OF CONSULT.
--- NOTE | 2018-11-03 16:36 | NUR ---
DR. ROBERTA GRANADOS HERE TO SEE PATIENT, ASSESS WOUNDS. DOES NOT FEEL LIKE WOUNDS NEED DEBRIDED AT THIS POINT. RECOMMENDS PLACING WOUND VAC OVER BOTH BUTTOCK WOUNDS. PT AGREEABLE TO THIS. WOUND CARE PERFORMED AND WOUNDS RE-DRESSED WITH WET-TO-DRY AT THIS TIME, AWAITING WOUND VAC SUPPLIES.
--- NOTE | 2018-11-03 18:10 | NUR ---
SHIFT SUMMARY PT MORE AWAKE SECOND HALF OF SHIFT, ORIENTED X4. HR TRENDING UP T/O SHIFT, BP STABLE. PT STARTED ON PO METOPROLOL THIS AFTERNOON FOR HR CONTROL. WOUNDS EVALUATED BY DR. GRANADOS THIS AFTERNOON - NO PLANS FOR SURGICAL DEBRIDEMENT AT THIS TIME. PLAN TO PLACE WOUND VAC TO EACH BUTTOCK WOUND. LUCY AREA CLEANSED AND NYSTATIN APPLIED PER ORDERS TO LUCY AND ABDOMINAL FOLDS TWICE THIS SHIFT. LEG BRACES REMAIN IN PLACE TO LEA FEET/ANKLES PER PT AND FAMILY. MEPILEX IN PLACE TO RIGHT HEEL WOUND. SUPRAPUBIC KIMBLE OUTPUT 125 ML FOR THE SHIFT. SLIGHT AMOUNT OF LEAKAGE NOTED AROUND KIMBLE INSERTION SITE - SKIN CLEANSED. PT HAD PICC LINE PLACED TO LEFT UPPER ARM TODAY. PT'S DAUGHTER/CAREGIVER AT BEDSIDE VISITING WITH PT - UPDATED ON PLAN OF CARE. WILL CONTINUE TO MONITOR PT AND GIVE HANDOFF REPORT TO ONCOMING RN WHEN AVAILABLE.
--- NOTE | 2018-11-03 19:30 | NUR ---
ASSUMED CARE BEDSIDE REPORT RECIEVED. PT SITTING UP IN BED, ALERT, ORIENTED, AND PLEASANT. PT DENIES PAIN OR DISCOMFORT. PT WITH HX OF PARAPLEGIA AND NO SENSATION BELOW UMBILICUS. VITAL SIGNS STABLE AT THIS TIME. PT ON 3L O2 NC. PICC TO AMBER C/D/I, NS TKO. SUPRA PUBIC CATH IN PLACE WITH DARK PB OUTPUT NOTED. PT WITH COCCYX WOUNDS, SEE PHOTOS IN CHART. PT WITH BILAT HEEL BRACES IN PLACE. FAMILY AT BEDSIDE. WILL CONTINUE TO MONITOR.
[2018-11-04 04:12] LABS: BASOPHILS ABSOLUTE AUTO 0.05 K/mm3 (0.00-0.23); BASOPHILS PERCENT AUTO 0 % (0-2); EOSINOPHILS PERCENT AUTO 3 % (0-6); Hematocrit 31.3 % (33.0-51.0); IMMATURE GRAN ABSOLUTE AUTO 0.07 K/mm3 (0.00-0.10); IMMATURE GRAN PERCENT AUTO 1 % (0-1); LYMPHOCYTES ABSOLUTE AUTO 1.36 K/mm3 (0.84-5.20); LYMPHOCYTES PERCENT AUTO 10 % (21-46); MONOCYTES PERCENT AUTO 6 % (4-13); Mean Corpuscular HGB 29.4 pg (26.0-34.0); Mean Corpuscular HGB Conc 31.9 g/dL (31.5-36.5); Mean Corpuscular Volume 92 fL (80-100); Mean Platelet Volume 9.7 fL (9.1-12.4); NEUTROPHILS ABSOLUTE AUTO 10.65 K/mm3 (1.96-9.15); NEUTROPHILS PERCENT AUTO 80 % (41-73); Platelet Count 412 K/mm3 (150-400); RDW Coefficient Variation 14.6 % (11.7-14.2); RDW Standard Deviation 50.1 fL (35.1-46.3); White Blood Cell Count 13.33 K/mm3 (4.00-11.30)
[2018-11-04 04:34] LABS: Albumin, Blood 1.3 g/dL (3.4-5.0); Anion Gap 6 mmol/L (6-16); Blood Urea Nitrogen 14 mg/dL (8-24); Bun/Creatinine Ratio 32.9 (12.0-20.0); CO2, Blood 28 mmol/L (21-32); Calcium, Blood 8.1 mg/dL (8.5-10.1); Chloride, Blood 102 mmol/L (98-108); Creatinine, Blood 0.43 mg/dL (0.40-1.00); Glomerular Filtration Rate >60 (60-); Glucose, Blood 77 mg/dL (70-99); Phosphorus, Blood 2.8 mg/dL (2.5-4.9); Potassium, Blood 3.2 mmol/L (3.5-5.5); Sodium, Blood 136 mmol/L (136-145)
--- NOTE | 2018-11-04 06:02 | NUR ---
SHIFT SUMMARY NO ACUTE CHANGES THIS SHIFT. PT HAS SLEPT OFF AND ON THROUGHOUT THE SHIFT. WHEN AWAKE PT IS ALERT, ORIENTED, AND PLEASANT. PT HAS COMPLAINED OF PAIN TO NECK AND SHOULDERS. PT MED PER EMAR. VITAL SIGNS STABLE, PT REMAINS IN AFIB. PT ON 3L O2 NC. PICC TO AMBER C/D/I WITH NS INFUSING TKO. SUPRAPUBIC CATH REMAINS IN PLACE WITH DARK YELLOW OUTPUT NOTED. WOUND VAC'S TO BILAT BUTTOCKS WOUNDS REMAIN C/D/I. ANKLE BRACES REMAIN IN PLACE TO BLE'S. WILL CONTINUE TO MONITOR AND REPORT OFF TO ONCOMING RN.
--- NOTE | 2018-11-04 08:21 | NUR ---
START OF SHIFT NOTE: RECEIVED REPORT FROM YANIRA HILL, RN, ASSUMED CARE, PATIENT IS AWAKE AND ALERT AND ORIENTED, LUNG SOUNDS ARE CLEAR ON LEFT BUT WHEEZES/RHONCHI HEARD ON RIGHT, PATIENT IS IN A-FIB WITH HR ANYWHERE FROM 100'S TO 140'S, PATIENT IS A PARAPLEGIC, HAS A SUPRAPUBIC CATHETER IN PLACE, WOUND VAC X2 ON EACH BUTTOCK, PATIENT IS PLEASANT AND ABLE TO MAKE NEEDS KNOWN, CALL LIGHTS IN REACH, WILL CONTINUE TO MONITOR.
--- NOTE | 2018-11-04 08:47 | NUR ---
PATIENT NEEDS ASSISTANCE WITH MEALS, IS A FEEDER, TAKES MEDICATIONS WELL WITH APPLESAUCE, NO PROBLEM SWALLOWING, CALL LIGHT IN REACH, WILL CONTINUE TO MONITOR.
--- NOTE | 2018-11-04 10:45 | NUR ---
PATIENT CHANGED AND REPOSITIONED, HAD BM, WOUND VAC DRESSING CHANGED AND SEAL ACHIEVED, PATIENT TOLERATED WELL, CALL LIGHT IN REACH, WILL CONTINUE TO MONITOR.
--- NOTE | 2018-11-04 11:01 | NUR ---
DR. KING IN TO SEE PATIENT, NEW ORDERS RECEIVED, ALSO JAQUI, MUSIC THERAPY IN TO PLAY FOR PATIENT, CALL LIGHT IN REACH, WILL CONTINUE TO MONITOR.
--- NOTE | 2018-11-04 14:18 | NUR ---
PATIENT'S DAUGHTER ARON CALLED AND WAS UPDATED ON PATIENT'S CONDITION.
--- NOTE | 2018-11-04 16:05 | NUR ---
PATIENT RECEIVED 25 MCG OF FENTANYL IV FOR SHOULDER PAIN 09/25, REPOSITIONED, PATIENT TOLERATED WELL, CALL LIGHT IN REACH, WILL CONTINUE TO MONITOR.
--- NOTE | 2018-11-04 17:43 | NUR ---
SHIFT SUMMARY REPORT: NO ACUTE EVENTS DURING THIS SHIFT, PATIENT IS ALERT AND ORIENTED, COARSE LUNG SOUNDS ON RIGHT, AND CLEAR LUNG SOUNDS ON LEFT, A-FIB WITH RATE IN LOW 100'S TO 120'S, SBP'S WERE DOWN TO 70'S THIS AM AND DR. KING ORDERED LEVOPHED DRIP, WHICH IS INFUSING AT 10 MCG/MIN AT THIS TIME, SBP'S NOW IN LOW 110'S, PATIENT STATES THAT SHE "FEELS VERY WELL TODAY", VERY PLEASANT AND COOPERATIVE, WOUND VAC APPLIED NO LEAK DETECTED, WAS CHANGED ONCE THIS AM AFTER BM, PATIENT TOLERATED WELL, NYSTATIN POWDER APPLIED TO ALL SKIN FOLDS AFTER CLEANSING THEM, PATIENT ALSO HAS SUPRAPUBIC CATHETER WITH LOW URINE OUTPUT, EATS AND DRINKS WELL, SWALLOWS ORAL MEDICATION WITHOUT ANY PROBLEMS WITH APPLESAUCE, PATIENT HAS AMBER PICC THAT HAS GOOD BLOOD RETURN FROM ALL LUMENS AND FLUSHES WELL, FOR DETAILS SEE SHIFT ASSESSMENT DOCUMENTATION AND NURSES NOTES CALL LIGHT IN REACH, WILL CONTINUE TO MONITOR, AND GIVE REPORT TO ONCOMING NUCLEAR POWERPLANT SUPERVISOR.
--- NOTE | 2018-11-04 19:30 | NUR ---
ASSUMED CARE REPORT RECIEVED. PT IS LAYING IN BED, ALERT, ORIENTED, AND PLEASANT. PT DENIES PAIN AT THIS TIME. PT ON 3L O2 NC. VITAL SIGNS STABLE WITH LEVOPHED INFUSING AT 10 MCG/MIN. PICC IN PLACE TO AMBER, C/D/I. PT WITH NO SENSATION BELOW LEVEL OF UMBILLICUS. SUPRAPUBIC CATHETER REMAINS IN PLACE. WOUND VACS IN PLACE TO BILAT BUTTOCKS'S. ANKLE BRACES IN PLACE TO BILATE LOWER EXTREMITIES. WILL CONTINUE TO MONITOR.
[2018-11-05 01:17] LABS: BASOPHILS ABSOLUTE AUTO 0.12 K/mm3 (0.00-0.23); BASOPHILS PERCENT AUTO 1 % (0-2); EOSINOPHILS ABSOLUTE AUTO 0.71 K/mm3 (0.00-0.68); EOSINOPHILS PERCENT AUTO 4 % (0-6); Hematocrit 35.3 % (33.0-51.0); Hemoglobin 10.9 g/dL (11.5-16.0); IMMATURE GRAN PERCENT AUTO 1 % (0-1); LYMPHOCYTES ABSOLUTE AUTO 2.49 K/mm3 (0.84-5.20); LYMPHOCYTES PERCENT AUTO 13 % (21-46); MONOCYTES ABSOLUTE AUTO 1.34 K/mm3 (0.16-1.47); MONOCYTES PERCENT AUTO 7 % (4-13); Mean Corpuscular HGB 28.3 pg (26.0-34.0); Mean Corpuscular HGB Conc 30.9 g/dL (31.5-36.5); Mean Corpuscular Volume 92 fL (80-100); Mean Platelet Volume 9.3 fL (9.1-12.4); NEUTROPHILS ABSOLUTE AUTO 14.41 K/mm3 (1.96-9.15); NEUTROPHILS PERCENT AUTO 75 % (41-73); Platelet Count 542 K/mm3 (150-400); RDW Coefficient Variation 14.8 % (11.7-14.2); Red Blood Cell Count 3.85 M/mm3 (3.80-5.20); White Blood Cell Count 19.17 K/mm3 (4.00-11.30)
[2018-11-05 01:35] LABS: Vancomycin, Trough 13.3 ug/mL (5.0-10.0)
[2018-11-05 01:43] LABS: Alanine Aminotransfer (ALT/SGP 10 U/L (12-78); Albumin, Blood 1.4 g/dL (3.4-5.0); Albumin/Globulin Ratio 0.4 (0.8-1.8); Alk Phos 104 U/L (50-136); Anion Gap 6 mmol/L (6-16); Aspartate Aminotrans (AST/SGOT 12 U/L (12-37); Bilirubin, Total 0.4 mg/dL (0.1-1.0); Blood Urea Nitrogen 15 mg/dL (8-24); Bun/Creatinine Ratio 33.3 (12.0-20.0); CO2, Blood 27 mmol/L (21-32); Calcium, Blood 8.3 mg/dL (8.5-10.1); Chloride, Blood 100 mmol/L (98-108); Creatinine, Blood 0.45 mg/dL (0.40-1.00); Glomerular Filtration Rate >60 (60-); Glucose, Blood 145 mg/dL (70-99); Potassium, Blood 3.1 mmol/L (3.5-5.5); Sodium, Blood 133 mmol/L (136-145); Total Protein, Blood 5.4 g/dL (6.4-8.2)
--- NOTE | 2018-11-05 03:14 | NUR ---
WOUND VAC REPLACEMENT BOTH WOUNDS TO BILAT BUTTOCKS CLEANED AND ENTIRE NEW WOUND VAC DRESSINGS REAPPLIED AFTER INCONTINENT BM. PT SKIN REDDENED ON ENTIRE LOWER BACK, BUTTOCKS, AND LEGS. SEE PHOTOS IN CHART. WILL CONTINUE TO MONITOR.
--- NOTE | 2018-11-05 05:24 | NUR ---
SHIFT SUMMARY NO ACUTE CHANGES THIS SHIFT. PT HAS SLEPT OFF AND ON THIS MORNING. PT REMAINS ALERT AND ORIENTED WHEN AWAKE. PT HAS COMPLAINED OF PAIN IN NECK AND SHOULDERS, PT MED PER EMAR. VITAL SIGNS HAVE REMAINED STABLE WITH PT ON LEVOPHED AT 10 MCG/MIN. NS INFUSING AT 75 ML/HR, AND KCL IVPB INFUSING. PICC TO AMBER IS C/D/I. PT ON 3L O2 NC. SUPRAPUBIC KIMBLE IN PLACE WITH INCREASED YELLOW URINE OUTPUT NOTED. PT WITH WOUND VACS IN PLACE TO BILAT BUTTOCKS, CHANGED THIS SHIFT. PT INCONTINENT OF STOOL. SKIN ON BACK, BUTTOCKS, AND LUCY AREA IS REDDENED AND EXCORIATED. PT WITH BILAT ANKLE BRACES IN PLACE. NO FAMILY AT BEDSIDE. WILL CONTINUE TO MONITOR AND REPORT OFF TO ONCOMING RN.
--- NOTE | 2018-11-05 08:00 | NUR ---
BEGINNING OF SHIFT Assumed care at 0700. Bedside report recieved from Mason JOHNSON. Pt on 3 LPM NC, which is baseline O2 use. Atrial fibrillation with rate between 115 and 125 per monitor. Levophed 10 mcg/min. Pt A&O x 4. Pleasant and cooperative with care. Wound vac to bilateral buttocks due to pressure ulcers, draining moderate amount of serosanguious drainage. Bed in lowest position. Call light in reach. Pt denies need at this time.
--- NOTE | 2018-11-05 11:04 | NUR ---
UPDATE Pt had large incontinent bowel movement that disrupted both wound vac dressings. Both wound vacs changed. Two skin tears noted to left buttock. Dr Pan in to see patient. Plan to recheck potassium level. Plan to obtain C diff and stool guiac. Plan to educate pt on flutter valve and incentive spirometry due to moist and loose cough. Pt remains on 10 mcg/min levophed. MAP between 65 and 75.
--- NOTE | 2018-11-05 13:12 | NUR ---
CALL PLACED TO DR KING Pt's cough becoming increasingly frequent and moist. Pt not producing sputum. Pt states she feels her cough started after breakfast and is worsening. Call placed to Dr King. ST consultation ordered. Pt to be NPO at this time, until speech therapy can see pt.
--- NOTE | 2018-11-05 13:14 | NUR ---
CALL PLACED TO DR HERRERA Pt updated on plan of care. Pt upset that she cannot have anything by mouth. States she is feeling anxious and requests buspar, which Dr Herrera stated plan to increase to three times a day. Dr Herrera notified of concern for aspriation. Orders given for one time dose of ativan.
--- NOTE | 2018-11-05 13:41 | NUR ---
ST IN TO SEE PT AT THIS TIME
--- NOTE | 2018-11-05 19:03 | NUR ---
SUMMARY Pt remains on levophed at 9 mcg/min. Pt required supplemental O2 titrated up to 4 LPM to maintain SpO2 90% or greater. Pt saturated bilateral wound vac dressings with incontinent stool void again this afternoon. Bilateral wound vac dressing changed. Existing dressings carefully removed with saline and gauze. Pt's skin did not tolerate dressing removal; areas of skin torn with dressing removal. Rectal tube placed, Dr Pan aware. Bedside report given nubia Burkett RN.
--- NOTE | 2018-11-05 21:02 | NUR ---
START OF SHIFT: REPORT FROM CARLOS OJHNSON. PT A+O VISITING WITH DAUGHTER WHO WAS AT BEDSIDE. gTT'S VERIFIED: LEVOPHED AT 9mcg/min, TKO, AND NS 75/hr. VSS. HR AFIB HR 109-120'S. WOUND VAC X2 IN PLACE DRAINING SEROSANGUINEOUS FLUID BILATERALLY. RECTAL TUBE IN PLACE WITH NO VISIBLE DRAINAGE THUS FAR. SUPRAPUBIC CATH IN PLACE PATENT AND DRAINING TO GRAVITY. PT WITH C/O HAVING TO BE NPO AND REQUESTED EVENING MEAL. CARLOS JOHNSON RE-INFORMED PT OF REASON FOR NPO AND REASSURED PT SPEECH-EVAL WILL BE IN TOMORROW FOR RE-EVALUATION. PT STATED DID NOT WANT TO SEE SPEECH-EVAL STATING, "THAT WOMAN TALKS DOWN TO ME AND MAKES ME SO MAD". PT REMINDED THAT IT WOULD BE SPEECH-EVAL THAT WOULD REMOVE NPO AND REORDER MEAL DIET. PT'S DAUGHTER REMAINED AT BEDSIDE. ALL QUESTIONS ANSWERED.
--- NOTE | 2018-11-05 22:41 | NUR ---
ASSESSMENT NOTE: NOTED PINK/RED FLUID IN [id number] TUBING. YELLOW URINE IN BAG. PT STATED HAS BLEED BEFORE WHEN TUBING GOT PULLED ON. TUBING ADJUSTED C/ SKIN AND TUBING CARE PROVIDED. WILL CONTINUE TO MONITOR. RIGHT LE BRACE REMOVED, MEPILEX CDI. BRACE PLACED BACK ON.
--- NOTE | 2018-11-05 22:43 | NUR ---
LEVOPHED TITATED DOWN TO 8mcg/min. BP 124/61 (78), HR 118.
[2018-11-05 23:58] LABS: Stool Occult Blood Guaiac 1 Neg (Neg)
--- NOTE | 2018-11-06 00:19 | NUR ---
UPDATE: LEVOPHED TITRATED UP TO 9mcg/min AT 2315. URINE CLEARING OF PINK/RED FLUID.
[2018-11-06 05:10] LABS: BASOPHILS ABSOLUTE AUTO 0.13 K/mm3 (0.00-0.23); BASOPHILS PERCENT AUTO 1 % (0-2); EOSINOPHILS ABSOLUTE AUTO 0.99 K/mm3 (0.00-0.68); EOSINOPHILS PERCENT AUTO 6 % (0-6); Hematocrit 34.5 % (33.0-51.0); Hemoglobin 10.6 g/dL (11.5-16.0); IMMATURE GRAN ABSOLUTE AUTO 0.11 K/mm3 (0.00-0.10); IMMATURE GRAN PERCENT AUTO 1 % (0-1); LYMPHOCYTES ABSOLUTE AUTO 2.28 K/mm3 (0.84-5.20); LYMPHOCYTES PERCENT AUTO 14 % (21-46); MONOCYTES ABSOLUTE AUTO 1.15 K/mm3 (0.16-1.47); MONOCYTES PERCENT AUTO 7 % (4-13); Mean Corpuscular HGB Conc 30.7 g/dL (31.5-36.5); Mean Corpuscular Volume 91 fL (80-100); Mean Platelet Volume 9.4 fL (9.1-12.4); NEUTROPHILS ABSOLUTE AUTO 11.64 K/mm3 (1.96-9.15); NEUTROPHILS PERCENT AUTO 71 % (41-73); Platelet Count 503 K/mm3 (150-400); RDW Standard Deviation 50.2 fL (35.1-46.3); Red Blood Cell Count 3.79 M/mm3 (3.80-5.20)
[2018-11-06 05:32] LABS: Anion Gap 5 mmol/L (6-16); Blood Urea Nitrogen 13 mg/dL (8-24); Bun/Creatinine Ratio 38.1 (12.0-20.0); CO2, Blood 25 mmol/L (21-32); Chloride, Blood 106 mmol/L (98-108); Creatinine, Blood 0.34 mg/dL (0.40-1.00); Glomerular Filtration Rate >60 (60-); Glucose, Blood 118 mg/dL (70-99); Magnesium, Blood 1.7 mg/dL (1.6-2.4); Phosphorus, Blood 2.2 mg/dL (2.5-4.9); Potassium, Blood 3.2 mmol/L (3.5-5.5); Sodium, Blood 136 mmol/L (136-145)
--- NOTE | 2018-11-06 06:02 | NUR ---
HOSPITALIST NOTIFIED: UPDATED RE: KCL AND PHOS. NEW ORDER FOR KPHOS 2Omm IV NOW.
--- NOTE | 2018-11-06 06:13 | NUR ---
DR. KING NOTIFIED: PT WITH C/O ANXIETY T/O NOC STATING, "MY SKIN FEELS LIKE IT'S CRAWLING". PT DESCRIBES SENSATION HER TYPICAL ANXIETY ISSUE. DR. IKNG NOTIFIED. ORDER TO GIVE PT HER AM DOSE OF BUSPAR NOW.
--- NOTE | 2018-11-06 06:41 | NUR ---
SHIFT SUMMARY: NO MAJOR CHANGES T/O NOC. PT REMAINED A+O WHEN AWAKE. LEVOPHED REMAINS AT 9mcg/min, PT NOT TOLERATING TITRATION DOWN TO 8mcg/min. WOUND VAC'S REMAINED IN PLACE WITH PROPER SUCTION. RECTAL TUBE PRODUCED A SMALL AMOUNT OF LIQUID BROWN STOOL. PT C/O NOT BEING ABLE TO EAT AND NOT AGREEING WITH SPEECH THERAPY, STATING, "I'VE GONE HOME EACH TIME AND HAVE NEVER CHOKED ON ANYTHING". PT WITH OTHER C/O ANXIETY AND WAS GIVEN EARLY DOSE OF BUSPAR (am DOSE) PER DR. KING. KcL 3.2 AND PHOS OF 2.2 BEING REPLACED WIHT K-PHOS 20mm PER DR. MARTINEZ. PT CURRENTLY SITTING UP IN BED AFTER CHEST XRAY. WILL REPORT OF TO ONCOMING RN.
--- NOTE | 2018-11-06 08:00 | NUR ---
BEGINNING OF SHIFT Assumed care at 0700. Bedside report received from Madelaine JOHNSON. Pt on 4 LPM NC. Baseline O2 use is 3 LPM NC. Pt alert and oriented. Main complaint this AM is that she is NPO. Pt reeducated on reason for NPO. Pt looks forward to seeing speech therapy today in hopes that diet can be advanced. Afib per monitor, with rate averaging between 115 and 125. Pt on levophed 9 mcg/min. MAP averaging between 70 and 80. Levophed titrated down to 8 mcg/min. Will continue to closely monitor. Rectal tube in place. Small amount of leakage from site. Wound vacs not disrupted by stool. Dressing to right wound vac reinforced. Pt tolerated well. Large amount of serosanguinous drainage from right ischial wound vac. Moderate amount of serosanguinous drainage left ischial wound vac. Abdominal, perineal, and breast folds cleaned. Nystatin applied. Pt tolerated well. Bed in lowest position. Call light in reach. Pt denies need at this time.
--- NOTE | 2018-11-06 08:15 | NUR ---
DR HERRERA IN TO SEE PT Discussed levophed titration. Discussed pt's anxiety. Orders given for PRN xanax.
--- NOTE | 2018-11-06 10:46 | NUR ---
ST IN TO SEE PT Pt initially agitated and unwilling to work with ST. Pt encouraged by this RN and her son, Dev to participate. Pt participated. Okay to have thin liquids with sippy cup. Okay for mechanical soft diet.
--- NOTE | 2018-11-06 14:16 | NUR ---
LEVOPHED Attempt to titrate pt from 8 mcg/min to 7 mcg/min unsuccessful. Dr Maxim rebollar.
--- NOTE | 2018-11-06 15:42 | NUR ---
DR KING PAGED Notified provider that CT pelvis results are available. No new orders at this time.
--- NOTE | 2018-11-06 16:20 | NUR ---
UPDATE This RN in pt's room at 1600 for repositioning. Blood noted to gown. Upon turning patient, large amount of blood noted to bedding. Wound vac dressing no longer intact. Dr Pan notified. Provider in patient's room. Plan to discontinue xarelto. Plan to obtain stat H&H. Per Dr Pan, right ischial wound vac to be removed and wound packed with dry dressing. Left ischial wound vac to remain in place.
[2018-11-06 16:48] LABS: Hematocrit 31.2 % (33.0-51.0); Hemoglobin 9.7 g/dL (11.5-16.0)
--- NOTE | 2018-11-06 17:01 | NUR ---
BP AND HR Pt required levophed titration to 10 mcg/min. BP elevated, averaging between [address] Pan aware. Orders given for fluid bolus. Dr Rodriguez to see pt today.
--- NOTE | 2018-11-06 19:45 | NUR ---
SUMMARY Pt titrated from 9 mcg/min levophed to 8 mcg/min and remained at this rate for several hours. Around 1600, pt required titration up to 10 mcg/min and has remained at this rate ever since to maintain MAP greater than 65. Dr Rodriguez at bedside at 1715. Cleaned wound and placed wet to dry dressing. Stated plan to use wet to dry dressings for next 24 hours with dressing changes QSHIFT. No plans for surgical intervention at this time. Dr Pan aware of bleeding from wound. Pt had about 200 mL of sanguinous output into right ischial wound vac this shift. A large amount of sanguinous drainage leaked from wound vac onto pt's bedding. Dr Pan aware of increased levophed requirements and HR that is trending up. Pt has 3+ pitting edema to RUE. Discussed with Dr Pan. Venous doppler ordered. At this time, BP is obtained on pt's left wrist, distal to PICC line, which is acceptable per PICC ALEX Ye. Bedside report given to Madelaine JOHNSON.
[2018-11-06 21:24] LABS: Hematocrit 29.5 % (33.0-51.0); Hemoglobin 9.4 g/dL (11.5-16.0)
--- NOTE | 2018-11-07 01:08 | NUR ---
START OF SHIFT: REPORT FROM CARLOS JOHNSON. PT AT THAT TIME RECEIVING VENOUS DOPPLER OF RIGHT ARM. DR. KING IN DEPT AT THAT TIME AND WAS UPDATED BY US TECH. AFTER DOPPLER COMPLETE, CARLOS JOHNSON AND THIS RN REPOSITIONED PT AND REMOVED SOILED LINENS FROM UNDER PT. PT WOUND VAC DRESSING TO L DECUB IN INTAC, PATENT, AND DRAINING SS FLUID. RIGHT WET-DRY DRESSING INTACT WITH NO VISIBLE DRAINAGE AT THAT TIME. PT REMAINED IN UPRIGHT FOWLERS POSITION FOR EVENING MEDS. DRINKING WATER FROM HER SIPPI CUP AND SIPPED ENSURE LATER IN SHIFT. PT TOLERATED TAKING HER MEDS WITH APPLE SAUCE WELL. PT TOLEATED TURNING AND WAS MEDICATED WITH FENTANYL X1 AND HAS BEEN RESTING QUIETLY SINC BUT AWAKENING EASILY EACH TIME RN TO BEDSIDE. LEVOPHED REMAINS AT 8mcg/min WITH TITRATION TO 7mcg/min NOT TOLERATED. PT OTHERWISE VERY PLEASANT WITH MILD COMPLAINTS OF BEDING VERY TIRED AFTER, "SUCH A BUSY DAY". BED TURNED ONTO AUTO ROTATION AFTER MIDNIGHT ASSESSMENT AND PT REQUESTING MUSIC AND LIGHTS OUT. WILL CONTINUE TO MONITOR AND PROVIDE WOUND DRESSING CHANGE DURING THIS SHIFT. 7mcg/min WITH RESULTING HYPOTENSION.
--- NOTE | 2018-11-07 04:54 | NUR ---
WOUND CARE/DRESSING CHANGE: PT TURNED VIA 2-STAFF ASSISTANCE SUPPORTING RIGHT LEG. DRESSING TO RIGHT BUTTOCK WOUND WITH MORE SEROUS DRAINAGE THAN SANGUINOUS SATURATING SLIGHTLY THROUGH ABD BINDER TO DRY-CARSON. WOUND BED PINK/RED WITH GOOD GRANULATED TISSUE NOTED-APPEARS TO BE IMPROVED THAN WHEN PT FIRST ADMIT. WET-DRY DRESSING WITH ABD PAD APPLIED. LEFT WOUND-VAC DRESSING INTACT DRAINING SS. PT TOLERATED WELL. SKIN TO ABD FOLDS AND BACK IMPROVING WITH NYSTATIN POWDER. PT REQUESTING ICE WATER. THICKENED LEMON WATER IN CUP WITH SIPPI-HOLE GIVEN (NO STRAWS). PT CURRENTLY SITTING UP IN BED WATCHING TV DRINKING LEMON WATER.
--- NOTE | 2018-11-07 07:39 | NUR ---
DR HERRERA IN TO SEE PT Provider updated on pt's levophed requirements. Updated on wounds. Provider states plan to obtain AM labs, including phos.
[2018-11-07 08:22] LABS: BASOPHILS ABSOLUTE AUTO 0.13 K/mm3 (0.00-0.23); BASOPHILS PERCENT AUTO 1 % (0-2); EOSINOPHILS ABSOLUTE AUTO 1.01 K/mm3 (0.00-0.68); EOSINOPHILS PERCENT AUTO 5 % (0-6); Hematocrit 28.4 % (33.0-51.0); IMMATURE GRAN ABSOLUTE AUTO 0.16 K/mm3 (0.00-0.10); IMMATURE GRAN PERCENT AUTO 1 % (0-1); LYMPHOCYTES ABSOLUTE AUTO 2.43 K/mm3 (0.84-5.20); LYMPHOCYTES PERCENT AUTO 11 % (21-46); MONOCYTES ABSOLUTE AUTO 1.73 K/mm3 (0.16-1.47); MONOCYTES PERCENT AUTO 8 % (4-13); Mean Corpuscular HGB 28.8 pg (26.0-34.0); Mean Corpuscular HGB Conc 31.7 g/dL (31.5-36.5); Mean Corpuscular Volume 91 fL (80-100); Mean Platelet Volume 9.5 fL (9.1-12.4); NEUTROPHILS ABSOLUTE AUTO 16.92 K/mm3 (1.96-9.15); NEUTROPHILS PERCENT AUTO 76 % (41-73); Platelet Count 489 K/mm3 (150-400); RDW Coefficient Variation 15.2 % (11.7-14.2); RDW Standard Deviation 50.4 fL (35.1-46.3); Red Blood Cell Count 3.12 M/mm3 (3.80-5.20); White Blood Cell Count 22.38 K/mm3 (4.00-11.30)
[2018-11-07 08:39] LABS: Albumin, Blood 1.3 g/dL (3.4-5.0); Albumin/Globulin Ratio 0.4 (0.8-1.8); Alk Phos 96 U/L (50-136); Anion Gap 5 mmol/L (6-16); Aspartate Aminotrans (AST/SGOT 16 U/L (12-37); Bilirubin, Total 0.3 mg/dL (0.1-1.0); Blood Urea Nitrogen 9 mg/dL (8-24); Bun/Creatinine Ratio 29.4 (12.0-20.0); CO2, Blood 26 mmol/L (21-32); Calcium, Blood 7.8 mg/dL (8.5-10.1); Chloride, Blood 106 mmol/L (98-108); Creatinine, Blood 0.31 mg/dL (0.40-1.00); Globulin, Blood 3.5 g/dL (2.2-4.0); Glomerular Filtration Rate >60 (60-); Glucose, Blood 132 mg/dL (70-99); Phosphorus, Blood 2.6 mg/dL (2.5-4.9); Potassium, Blood 3.2 mmol/L (3.5-5.5); Sodium, Blood 137 mmol/L (136-145); Total Protein, Blood 4.8 g/dL (6.4-8.2)
[2018-11-07 08:47] LABS: Alanine Aminotransfer (ALT/SGP <6 U/L (12-78)
--- NOTE | 2018-11-07 11:29 | NUR ---
TELEPHONE SUPERVISOR IN TO SEE PT Discussed pt's poor oral intake of food and fluid. Discussed Matt, which pt is reluctant to drink. Discussed mechanical soft diet, which pt is not eating much of.
--- NOTE | 2018-11-07 12:30 | NUR ---
INITIAL PAL CARE VISIT - CALLED TO ICU BY PT'S RN. CASE CONFERENCE WITH RN PRIOR TO VISIT. PT IS A PENITENTIARY PARAPALEGIC, CARED FOR BY FAMILY AT HOME. SHE HAD BEEN COMING TO WOUND CARE CLINIC AND EVALUATED LATE LAST WEEK DUE TO WORSENING WOUNDS AND SIGNS OF INFECTION. PT HAS LONGSTANDING COMPLEX WOUNDS ON BOTH BUTTOCKS. 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 SHE HAS HAD DECREASED ORAL NUTRITION AND FLUID INTAKE. A SWALLOW EVAL WAS DONE AND FEEDING PLAN FOR SAFETY AND ASPIRATION PRECAUSITONS FORMULATED. THAT HAS BEEN FOLLOWED AND PER RN, EVEN WITH GREAT ASSIST AND ENCOURAGEMENT, PT IS ONLY GETTING BITES AND SIPS OF MEALS T/O THE DAY. PT JUST MET WITH EQUIPMENT MONITOR PHOTOTYPESETTING WHO EDUCATED PT ON NUTRITIONAL NEEDS FOR WOUND HEALING. PT PRESENTED WITH OPTION FOR FEEDING TUBE TO RESTORE NUTRITIONAL STATUS. PT IS NOT SURE SHE WOULD LIKE TO DO THAT PER RN. PT IS ALSO A FULL CODE AT THIS TIME AND HAS MULTPLE SERIOUS CHRONIC ILNESSES AND COMORBITIES AFFECTING HER COMFORT AND QUALITY OF LIFE. RN GAVE FULL REPORT PT'S EMILJOE BY PHONE, WHO PLANS TO COME IN LATER TO TALK WITH PT. PT WOULD LIKE TO DISCUSS OPTIONS AND GOALS OF CARE WITH ME AND WOULD LIKE HER FAMILY TO MEET WITH HER TO MAKE SOME DECISIONS ALSO. RN TO PAGE ME WHEN JOE IS AVAILABLE TO MEET IN PT'S ROOM LATER TODAY. PER PT'S REQUEST I MET WITH HER PRIOR TO FAMILY MEETING. WE DISCUSSED BENEFITS OF FEEDING TUBE FOR WOUND HEALING. SHE IS LEANING TOWARD TRIALING TUBE FEEDINGS TO SEE IF WOUNDS AND CONDITION IMPROVES. SHE DISCUSSED DISCONTINUING TUBE FEEDINGS AT A LATER TIME IF SHE DID NOT WANT TO CONTINUE THEM. WE DISCUSSED HER CURRENT CODE STATUS, CPR, VENTILATORY SUPPORT AND ADVANCED LIFESAVING INTERVENTIONS. SHE DOES NOT THINK SHE WOULD LIKE US TO DO CPR. SHE VERBALIZED HER FEELING OF BEING IN "SUCH BAD SHAPE THAT IT DOESN'T MAKE SENSE ANYMORE". I ENCOURAGED HER TO DISCUSS HER FEELINGS WITH HER DRS AND FAMILY TO DETERMINE THE BEST PLAN FOR HER. I REINFORCED THAT SHE COULD CHOSE WHICH INTERVENTIONS SHE WOULD LIKE AND SHE COULD DECLINE THE MEDICAL CARE THAT SHE DID NOT WANT. SHE AGREES WITH PLAN TO MEET AGAIN LATER TO DISCUSS FURTHER WTIH HER AND HER FAMILY WHEN THEY ARRIVE. SHE REPORTS THAT SHE IS NOT EXPERIENCING PAIN AT THIS TIME. SHE DOES FEEL ANXIOUS AND DYSPNIC. INITIALLY SHE ASKED THAT SHE NOT RECEIVE RT TXS TODAY. ENCOURAGED HER TO ALLOW RTS TO ASSESS AND TREAT RESPIRATORY S/S AND DISTRESS MAY INCREASE HER ANXIETY. SHE AGREET TO RT TX TODAY. RN INFORMED OF PT'S REPORTED ANXIETY AND SHE WILL MEDICATE PER eMAR FOR ANXIETY PRN.
--- NOTE | 2018-11-07 12:49 | NUR ---
UPDATE Pt and prevention coordinator spoke about potential for feeding tube as PO intake has been poor. Pt stated she was willing. Pt spoke to family about potential for feeding tube. Pt's family members Eleazar and Mg called unit to inquire for update. Plan of care discussed with family. Family verbalized understanding. Pt stated she would like to meet with family to discuss goals of care. This RN passed this on to Eleazar and Mg. Spoke to Dr Pan regarding plan of care. No plans for feeding tube at this time.
--- NOTE | 2018-11-07 13:00 | NUR ---
DR KING IN ROOM Provider spoke with patient. New orders given
--- NOTE | 2018-11-07 16:25 | NUR ---
Pal Care visit: Second visit today, currently with daughter's Belkis and Wse present. With pt's permission, we reviewed my earlier discussion with pt and Sofi's expressed expressed thoughts/wishes re: nutrition and code status with two daughters. Belkis is pt's primary cg at home and is also her medical surrogate decision maker if pt cannot communicate her wishes or is cognitively impaired. Sofi confirms this. Two additional children were not present but Wes states they pass on their love and support of what ever pt decides is best for her. Pt repeats that at 83, she is tired and doing her best but understands she is not getting enough nutrition in to support wound healing. She is willing to try harder within the guidelines of ST recommendations but if she is unable to do that would consider a trail of tube feedings if they are recommended by drs/dietitian. Pt had a dietary consult earlier today and the list of foods she does well with and likes was provided to dietitian per RN. Pt expressed her wishes for a change in her full code states to DNR and DNI with limited interventions such as bipap, cpap, iv hydration, nutrition and antibiotics if needed. FAmily asked questions about d/c planning and state they want to continue home care with [facility] and wound care clinic when pt is ready for d/c. I entered orders for social welfare administrator for assist with d/c planning and coordination of hh orders. Dillon Lozano and Maxim updated on my visit with pt/family and RN updated on all of above. VO received for DNR and entered. POLST form completed with pt/medical POA and left on chart for Dillon wong. Plan for f/u tomorrow to process POLST, send to medical records and return original to pt/family. Pt appears at peace and relieved to have this conversation with her daughters. They were tearful but 100% supportive and were having a good visit with lots of laughter and sharing afterwards. Pt expressed gratitude for her four children and gdau who love and attend to her regularly.
--- NOTE | 2018-11-07 17:00 | NUR ---
WOUND CARE Wet to dry dressing changed. Left ischial wound vac C/D/I.
--- NOTE | 2018-11-07 19:19 | NUR ---
FAMILY CONCERNS: DISCUSSED CARE CONCERNS WITH FAMILY. PT'S FAMILY REPORTS THEY ARE CONCERNED WITH PT'S PRIOR CARE WHILE ON THE MEDICAL FLOOR. THEY REPORT THAT MULTIPLE WOUNDS HAVE OCCURRED WHILE PT WAS AN INPT ON 2 DIFFERENT ADMITS. THEY REPORT THAT IT TOOK SEVERAL DAYS BOTH ADMITS TO GET THE PT AN APPROPRIATE AIR MATTRESS. DISCUSSED WITH FAMILY THAT THIS CONCERN WOULD BE PASSED ON TO THE RN CARING FOR THE PT AND WINSTON PERALES AND THAT THEY COULD WORK ON GETTING THE PT AN OSCILLATING AIR MATTRESS PRIOR TO TNX TO MEDICAL FLOOR. HOWEVER, PT IS NOT YET READY FOR TNX, SHE REMAINS ON LEVOPHED AT 15MCG/MIN AT THIS TIME. FAMILY WAS ALSO CONCERNED THAT PT'S WOUNDS LOOK SIGNIFICANTLY LARGER/DEEPER COMPARED TO WHEN SHE WAS FIRST ADMITTED. LOOKED OVER THE INITIAL WOUND PICS FROM FIRST DAY OF ADMISSION AND DISCUSSED THAT THE DR DID A BEDSIDE WOUND DEBRIDMENT, AND EXPLAINED SOMETIMES THE WOUND WILL BE MORE AGGRESSIVELY DEBRIDED IN THE HOSPITAL AT TIMES TO SUFFICIENTLY UNCOVER HEALTHY TISSUE AND TO ASSURE THERE ARE NO NEW TUNNELING OR POCKETS OF INFECTION. FAMILY WAS THANKFUL WITH THIS RN FOR TAKING THE TIME TO EXPLAIN THE PROCESS AND FOR PREEMPTIVELY WORKING ON A ALTERNATING PRESSURE MATTRESS.
--- NOTE | 2018-11-07 19:38 | NUR ---
SUMMARY / WOUND CARE/ PT'S ANXIETY AND GOALS OF CARE Later this afternoon, family at bedside. Levophed required titration to 15 mcg/min to maintain MAP over 65. Discussed repositioning and wound care with family. Family at bedside for wet to dry dressing change. Family stated wound appeared much larger/deeper than admit. Discussed debridement done by Dr Rodriguez at bedside yesterday. elevator inspector in room to discuss with family. Educated family that bed provides continuous oscillation to prevent pressure injury. Family verbalized understanding and satisfaction with response to concerns. Family assisted pt to eat dinner this evening. This RN educated family to take time feeding pt as pt was coughing after first few bites of food. Family responded by feeding pt more slowly. Discussed need to increase PO intake. Family brought in chocolate shake, as pt enjoys this food. Pt requested "something for anxiety" around 1830. This RN explained that neither buspar nor xanax were available. This RN inquired about anxiety. Pt stated "I have a broken heart" and "I'm not stupid; I know I'm not getting better" and "I don't think I'm getting better". Pt stated that she has interest in interventions that increase comfort instead of increase longevity. Conversation ended as night RN entered room for bedside report. Report given to Madelaine JOHNSON. Pt's daughter Wes at bedside during this conversation. Dr Pan aware of pt's increased levophed requirements. Pt remains on home dose of 3 LPM NC.
--- NOTE | 2018-11-07 21:26 | NUR ---
START OF SHIFT: REPORT FROM CARLOS JOHNSON. FAMILY AT BEDSIDE. FAMILY AND PT EMOTIONAL. AT BEDSIDE CARLOS JOHNSON ANSWERED PT AND FAMILY QUESTIONS WITH REASSURANCE TO PT THAT CARE WOULD PROCEED T/O NOC IN RE: TO PT'S INCREASE IN ANXIETY. PT CONTINUES ON LEVOPHED NOW AT 15 mcg/min. PT CONTINUES ON TITRATING BETWEEN 3-10L HI-FLOW N/C. SEE FLOWSHEET. PT'S FAMILY LEFT DEPARTMENT AT APPRX 1999, PT BECAME VERY ANXIOUS AND C/O SOB AND A BURNING SENSATION IN ABDOMEN (POINTED TO UPPER MID ABDOMENT) PT TACHYPNEIC RR 30'S. HUMID SYSTEM OPERATOR AND THIS RN TO BEDSIDE, REPOSITIONED PT IN ADDITION TO CALMING TECHNIQUES ALLOWING PT TO SPEAK OF CONCERNS AND WAS PROVIDED TIME OF LISTENING. PT GIVEN BUSPAR AT PT REQUEST WHICH SEEMED TO HELP CALM PT. PT, THEN, WAS WILLING AND SIPPED ASHLEY MIXED C/ VANILLA ICE CREAM, A FEW SIPS OF ENSURE, AND A FEW SIPS OF THICKENED LEMON WATER. PT TOLERATED TAKING ALL MEDICATONS AND IS CURRENTLY WATCHING TV. BED ON AUTO ROTATION FOR PT COMFORT. WILL CONTINUE TO MONITOR.
--- NOTE | 2018-11-07 22:56 | NUR ---
PT WITH VISITOR TO BEDSIDE. PT APPEARS SANDRA IN BETTER SPIRITS, SMILING AND LAUGHING.
--- NOTE | 2018-11-08 00:47 | NUR ---
SCD'S: PT EDUCATED RE: NOT BEING ON XERELTO AND HAVING SCD'S. PT STATED, "I'M NOT PRONE TO CLOTS, I'M ON XERELTO BECAUSE..OF..". PT STATED THAT SHE WANTED TO WAIT AND TALK TO HER DAUGHTER IN THE MORNING RE: HAVING TO TAKE THE LEG BRACES OFF IN ORDER TO USE SCD'S.
--- NOTE | 2018-11-08 02:43 | NUR ---
PT AWAKENED FROM SLEEP WITH INCREASED ANXIETY AND SOB. LS MORE COARSE AND DIMINISHED. DR. KING NOTIFIED WITH UPDATE AND I&O TOTALS. NEW ORDERS TO START VASOPRESSIN AND ADMINISTER LASIX 10 mg IVP NOW.
[2018-11-08 03:40] LABS: BASOPHILS ABSOLUTE AUTO 0.12 K/mm3 (0.00-0.23); BASOPHILS PERCENT AUTO 0 % (0-2); EOSINOPHILS ABSOLUTE AUTO 1.86 K/mm3 (0.00-0.68); EOSINOPHILS PERCENT AUTO 7 % (0-6); Hematocrit 29.7 % (33.0-51.0); Hemoglobin 9.4 g/dL (11.5-16.0); IMMATURE GRAN ABSOLUTE AUTO 0.32 K/mm3 (0.00-0.10); IMMATURE GRAN PERCENT AUTO 1 % (0-1); LYMPHOCYTES ABSOLUTE AUTO 2.72 K/mm3 (0.84-5.20); LYMPHOCYTES PERCENT AUTO 10 % (21-46); MONOCYTES ABSOLUTE AUTO 1.54 K/mm3 (0.16-1.47); MONOCYTES PERCENT AUTO 6 % (4-13); Mean Corpuscular HGB 29.2 pg (26.0-34.0); Mean Corpuscular HGB Conc 31.6 g/dL (31.5-36.5); Mean Corpuscular Volume 92 fL (80-100); NEUTROPHILS ABSOLUTE AUTO 21.38 K/mm3 (1.96-9.15); NEUTROPHILS PERCENT AUTO 77 % (41-73); Platelet Count 564 K/mm3 (150-400); RDW Coefficient Variation 15.2 % (11.7-14.2); RDW Standard Deviation 50.9 fL (35.1-46.3); Red Blood Cell Count 3.22 M/mm3 (3.80-5.20); White Blood Cell Count 27.94 K/mm3 (4.00-11.30)
[2018-11-08 04:00] LABS: Albumin, Blood 1.3 g/dL (3.4-5.0); Albumin/Globulin Ratio 0.4 (0.8-1.8); Alk Phos 105 U/L (50-136); Anion Gap 6 mmol/L (6-16); Aspartate Aminotrans (AST/SGOT 17 U/L (12-37); Bilirubin, Total 0.3 mg/dL (0.1-1.0); Blood Urea Nitrogen 9 mg/dL (8-24); Bun/Creatinine Ratio 27.8 (12.0-20.0); CO2, Blood 25 mmol/L (21-32); Calcium, Blood 8.1 mg/dL (8.5-10.1); Chloride, Blood 105 mmol/L (98-108); Creatinine, Blood 0.32 mg/dL (0.40-1.00); Globulin, Blood 3.7 g/dL (2.2-4.0); Glomerular Filtration Rate >60 (60-); Glucose, Blood 146 mg/dL (70-99); Magnesium, Blood 1.8 mg/dL (1.6-2.4); Phosphorus, Blood 2.1 mg/dL (2.5-4.9); Potassium, Blood 3.7 mmol/L (3.5-5.5); Sodium, Blood 136 mmol/L (136-145)
--- NOTE | 2018-11-08 04:00 | NUR ---
PT WISHES UPDATE: PT REFUSING TURNING NOR WANTING DRESSING CHANGED AT THIS TIME. THIS RN SPENT SEVERAL MINUTES LISTENING AND TALKING TO PT. PT STATED DID NOT WANT SURGERY AND DID NOT WANT TO BE TRANSFERRED TO ANOTHER FACILITY. PT STATED WAS DISCUSSED TODAY WITH PALATIVE CARE THE OPTION OF COMFORT CARE AND HOSPICE. PT STATED THAT THIS IS WHAT SHE WANTS. WILL PASS ON TO DAY RN AND STAFF.
[2018-11-08 04:01] LABS: Alanine Aminotransfer (ALT/SGP <6 U/L (12-78)
--- NOTE | 2018-11-08 06:26 | NUR ---
HIGH ANXIEY/REFUSING WOUND CARE AND MAJOR TURNS: PT WITH INCREASED ANXIETY THIS SHIFT. PT BECAME LABORED BREATHING, LETHARGIC, AND AGITATED. DR. KING NOTIFIED (SEE PREVIOUS NOTE). PT KEPT YELLING OUT FOR THIS RN AND ASKING FOR HELP STATING, "I CAN'T DO THIS. I KNOW THE DOCTOR'S DON'T WANT ME TO GO THROUGH THIS". DR. DIEZ NOTIFIED, ATIVAN 0.5mg ORDERED AND GIVEN. PT WITH SOME RELIEF BUT STILL STATES, "OH GOD! I NEED SOMETHING TO SHUT MY BRAIN OFF". PT FREQUENTLY ASKING FOR SOMETHING TO GET RID OF, "THE JITTERS" THIS AM. PT REFUSING WOUND CARE, STATING, "I WANT TO WAIT UNTIL I CAN BREATH". PT NOT TOLERATING LOW PORTER'S POSITION AT THIS TIME. PILLOW CASES CHANGED, HOWEVER. PT CURRENTLY, REPEATING, "HELP ME" AT THIS TIME WHILE RN WRITING NOTE.
--- NOTE | 2018-11-08 07:31 | NUR ---
CALLED ARON, PT'S DAUGHTER WHO IS NOW AT BEDSIDE. FAMILY UPDATED RE: PT EVENTS AND WISHES THROUGH THE NIGHT. CALL AND MESSAGE LEFT WITH DR. LARA. REPORT GIVEN TO ONCOMING RN.
--- NOTE | 2018-11-08 07:32 | NUR ---
ASSUMED CARE: REPORT RECEIVED FROM IMANI Chowdhury RN. ASSUMED CARE OF THIS PT AT APPROX 0700. ON ASSESSMENT, THE PT STS BEING ANXIOUS. SHE IS TACHYPNEIC & TACHYCARDIC W/ O2 SATS 88-90% ON 6L NC & HR 140-160s. HYPOTENSION IS PERSISTANT DESPITE LEVOPHED & VASOPRESSIN INFUSIONS. WOUND CARE WAS REFUSED BY THE PT LAST NIGHT & SHE IS ALLOWING VERY LITTLE REPOSITIONING TO BE COMPLETED. COMFORT OPTIONS HAVE BEEN DISCUSSED W/ THE PT BY OFFGOING IMANI JOHNSON. THE PT HAS STATED THAT SHE WANTS TO BE MORE COMFORTABLE & ACHIEVE RELIEF OF HER ANXIETY & PAIN. IMANI Chowdhury RN, HAS MADE A CALL TO DR LARA WHO WILL BE ASSUMING HOSPITALIST CARE OF THE PT THIS MORNING. AWAITING CALL BACK. WILL CONTINUE TO MONITOR & UPDATE NEEDED.
--- NOTE | 2018-11-08 08:37 | NUR ---
DR LARA: PROVIDER IN UNIT. UPDATED HER ON PT's STATUS. SHE WOULD LIKE PALLIATIVE CARE TO SEE THE PT, PRIOR TO HER HAVING A DISCUSSION W/ THE FAMILY REGARDING COMFORT CARE, TO DETERMINE WHETHER OR NOT THIS IS A GOOD OPTIONS FOR THE PT. WILL CALL TO NOTIFY DR LARA ONCE PALLIATIVE CARE HAS SEEN THE PT. A CALL HAS BEEN MADE TO PALLIATIVE CARE & A MESSAGE LEFT. WILL CONTINUE TO MONITOR & UPDATE NEEDED.
--- NOTE | 2018-11-08 09:57 | NUR ---
Called by ICU to see pt. Pt sleeping but I was able to rouse her. She states she just wants to sleep. NC in mouth and pt with short shallow respirations. Daughters have left briefly. Pt has been declining all care and treatments from RN and po intake. She had had a very good day with family visits yesterday. Today she looks like she has had a change in respiratory status. Reviewed medications with RN and the Roxanol has been most effective for dyspnea and anxiety this am. When I ask pt if she has made up her mind to decline care she nods yes. When I ask her if she is done, she says, "not quite". She states she just wants to sleep now. Told pt I will return later and asked RN to page me when daughters return. states pt's cxr has worsened and if pt wants tx she may need to be intubated. Pt has clearly stated and documented her wishes for DNR/DNI yesterday with daughters.
--- NOTE | 2018-11-08 10:08 | NUR ---
DR LEARY (PORFIRIO): PROVIDER AT BEDSIDE TO SEE PT THIS AM. A DISCUSSION REGARDING CONTINUED CARE VS COMFORT MEASURES HAS OCCURED. THE PT STS SHE IS STILL NOT OPEN TO THE IDEA OF BEING TRANSFERRED FOR SURGERY OF HER OSTEOMYELITIS. SHE IS DNR/ DNI. DURING THIS DISCUSSION, IT HAS BEEN DECIDED THAT SHE WOULD LIKE NO MORE LAB DRAWS OR INVASIVE CARE MEASURES. NONESSENTIAL MEDS HAVE BEEN D/C'd BY PROVIDER, HAVE LAB WORK ORDERS. PALLIATIVE CARE IS INVOLVED & UNDERSTANDS THE PT's WISHES TO BE COMFORTABLE. WILL NOTIFY PALLIATIVE CARE WHEN FAMILY IS BACK TO BEDSIDE. WILL CONTINUE TO MONITOR & UPDATE NEEDED.
--- NOTE | 2018-11-08 14:40 | NUR ---
Pt/family meeting in pt's room in ICU. Pt is clear that she is ready to and that she is not afraid to . She expresses being "tired and ready". Her family is very appropriately tearful and supportive of pt's wishes. Pt has a son living in [place] and has asked his mom by phone, "to promise not to before he can get there". He is not leaving today and driving from [place] later in the week. Discussed that this is not a promise that anyone can realistically guarantee and that her son may need to let pt know he will be ok, that she has his blessings. I asked if family members could facilitate getting a face to face conversation via video chat, face time or skype so that pt and her son could have some peace and conversation outside of phone conversations. Daughters will work on that. Pt has had better relief of anxiety and air hunger after Roxanol ordered and administered today. She reports a long life of suffering with physical disability and wounds more recently. Much time spent answering questions and encouraging pt and family members to express their feelings, wishes and thoughts. Approx 9 family members in room verbalized support of pt's wishes. We have offered comfort care with the d/c of ICU care, pressors and medications/tx outside of medications and tx for comfort. Pt/FAmily waiting to resolve the concerns re: son in [place]. They understand that they can let pt's nurses or drs know when they do decide they would like comfort care initiated. THey are in agreement with current medications for comfort and bp support at this time. They understand that pt's respiratory failure is worsening and that pt does not want to be intubated. Family and pt understand that her demise and failure could happen very quickly due to declining respiratory status despite bp support with pressors. Report given to our Back Order Clerk with request to visit. Pt is of [employer] tonya and felt like she'd like prayer. Report given to pt's RN re: my meeting with pt/family and also to Alicia PEREYRA assigned to July. Report given to Palliative care nurses who will follow pt/family tomorrow. Case conferenced with hospitalist during hospitalist meeting.
--- NOTE | 2018-11-08 17:55 | NUR ---
Spiritual Care inital note: Mrs. Tena was being visited by several family members. Once we had introductions, family left to provide privacy for spiritual direction. Sofi is a delightful woman with a powerful tonya that sustains her. She knows she is nearing end-of-life and feels at peace. she is hoping to be able to "hold-on" until her son arrives late in the week. She also states that she may not be able to wait for him. "I am following what my body tells me." We spoke of her few regrets and what she felt she has left undone. Made recommendations and provided gentle business and financial counsel to good effect. Prayer for God's will to be done at her request. I will remain availbale to pt and family.
--- NOTE | 2018-11-08 18:36 | NUR ---
SHIFT SUMMARY: NO ACUTE CHANGES SINCE PRIOR UPDATES. THE PT HAS BEEN RESTING QUIETLY FOR MOST OF THE AFTERNOON & STS FEELING MORE "AT EASE" OVERALL. HER FAMILY HAS BEEN VISITING INTERMITTENTLY T/O THE SHIFT. THERE IS SOME CONCERN REGARDING HAVING THE PT's SON COME TO VISIT HER BEFORE OFFICIALLY BECOMING COMFORT CARE. THE PT CONTINUES REQUIRING PRESSORS & IS CONCERNED THAT AFTER BECOMING COMFORT CARE & HAVING PRESSORS REMOVED, SHE WILL PASS TOO QUICKLY FOR HER SON TO ARRIVE. THE PT & FAMILY HAVE BEEN DISCUSSING THIS & PLAN TO HAVE ANSWERS REGARDING IF THE PT's SON WILL ARRIVE SOON OR IF SHE WISHES TO BE COMFORT CARE ANYWAY. SHE IS CURRENTLY ON 8L HI-FLOW NC W/ O2 SATS >88%. MONITOR SHOWS AFIB W/ HR 110-120s, OCCASIONAL PVCs. RECTAL TUBE & KIMBLE ARE BOTH PATENT/ DRAINING. PT CONTINUES REFUSING WOUND CARE & STS SHE "JUST WANTS TO REST." WILL CONTINUE TO MONITOR & REPORT OFF TO ONCOMING RN.
--- NOTE | 2018-11-08 19:15 | NUR ---
ASSUME CARE: REPORT RECIEVED FROM SUNNI OFF GOING RN. MONITOR INTACT SHOWING SINUS TACH. HEART RATE 100'S-120'S. LUNG SOUNDS DECREASED ESPECIALLY IN BASES. HI FOLW O2 IN PLACE AT 9L/MIN SPO2 90-94%. ABD SOFT TENDER WITH BOWEL SOUNDS. SUPRA PUBIC CATH INTACT DRAINING PB URINE. RECTAL TUBE INTACT DRAINING BROWN LIQUID STOOL PER GRAVITY. PAS TO LOWER EXTREMITIES. DRESSING CHANGED WITH PT PERMISSION TO R BUTTOCK. REFUSES OTHER DRESSING CHANGES. ASSISTS WITH REPOSITIONING. REQUEST PRN ROXANAL. VISITS WITH FAMILY IN ROOM. ATTENTIVE TO CARES. CONTINUE TO MONITOR AND REPORT CHANGE IN PATIENT CONDITION.
--- NOTE | 2018-11-09 06:38 | NUR ---
SHIFT SUMMARY RESTS QUIETLY WHEN UNDISTURBED. MONITOR INTACT SHOWING SINUS TACH HEART RATE 100'S-120. LINH SOUNDS COARSE RHONCHI THROUGHOUT OCC WEAK COUGH. OCC PRODUCTIVE COUGHT DIFFICULTY CLEARING SECREATIONS. DEEP ORAL SUCTIONING. COOPERATIVE TO CARES. THIN ORAL SECREATIONS. ABDOMENSOFT WITH BOWEL SOUNDS SUPRA PUBIC KIMBLE PATENT DRAINING CLEAR YELLOW URINE. RECTAL TUBE ATENT DRAINING BROWN LIQUID STOOL. WET TO DRY DRESSINGS ON BUTTOCK WOUNDS. PAS TO LOWER EXTREMITIES. 3+ DEPENDENT EDEMA NOTED TO EXTREMITIES. EXTREMITIES ELEVATED ON PILLOWS. AWAKENS TO VERBAL STIMULI. MEDICATED WITH ROXANOL TIMES THREE THIS SHIFT. REMAINS ON BLOOD PRESSURE SUPPORT. REFUSING WOUND CARE AND REPOSITIONING AT TIMES. CONTINUE TO MONITOR AND REPORT CHANGE IN PATIENT CONDITION.
--- NOTE | 2018-11-09 08:43 | NUR ---
ASSUMED CARE / DR LARA: REPORT RECEIVED FROM LAURA Vasquez RN. ASSUMED CARE OF THIS PT AT APPROX 0700. ON ASSESSMENT, THE PT IS RESTING & APPEARS COMFORTABLE. SHE HAS SOME AUDIBLE UPPER AIRWAY SECRETIONS, SCOPALAMINE PATCH IS INTACT TO R NECK BEHIND EAR. LEMUEL Larose, RT, HAS BEEN IN ROOM TO PROVIDE DEEP ORAL SUCTION THIS MORNING. THE PT STIRS & AWAKENS SLIGHTLY DURING THIS TIME BUT OVERALL REMAINS COMFORTABLE. SHE IS CURRENTLY ON 10L HI-FLOW NC W/ O2 SATS > 90%. MONITOR SHOWS AFIB W/ HR 110-130s. BP STABLE W/ LEVOPHED & VASOPRESSIN INFUSING, TITRATION ON FLOWSHEET. RECTAL TUBE & KIMBLE ARE PATENT/ DRAINING. PROVIDER AT BEDSIDE TO SEE PT. NO ORDER CHANGES AT THIS TIME. NOTIFIED HER THAT PT's SON SHOULD BE HERE THIS AFTERNOON & THAT COMFORT CARE ORDERS WILL LIKELY BE INITIATED AT THAT TIME, PER FAMILY's STATEMENTS. WILL CONTINUE TO MONITOR & UPDATE NEEDED.
--- NOTE | 2018-11-09 14:00 | NUR ---
UPDATE / DR LARA / COMFORT CARE: PT's BP HAS CONTINUED TO DROP DESPITE CONTINUED USE OF LEVOPHED & VASOPRESSIN CHARTED. THE PT IS LESS RESPONSIVE THAN SHE HAS BEEN & AWAKENS ONLY BREIFLY WHEN SPOKEN TO & IS NO LONGER CONVERSANT. THERE IS ONE FAMILY MEMBER CURRENTLY DRIVING TO THE HOSPITAL FROM OUT OF TOWN THAT IS APPROX 1 HR AWAY. IT IS DISCUSSED W/ THE FAMILY AT BEDSIDE, INCLUDING SOHA (POA), THAT IT MAY BE TIME FOR THE PT TO HAVE COMFORT CARE ORDERS PLACED SO THAT THERE IS NO LAPSE IN HER COMFORT SHE BECOMES LESS RESPONSIVE & LESS STABLE. THE FAMILY IS AGREEABLE TO THIS & A CALL HAS BEEN PLACED TO DR LARA WHO IS ALSO AGREEABLE. ORDERS PLACED PER COMFORT CARE ORDER SET. PALLIATIVE & SPIRITUAL CARE HAVE BEEN NOTIFIED OF THIS WELL. COMFORT CART ORDERED. THE PT APPEARS COMFORTABLE AT THIS TIME & FAMILY AT BEDSIDE IS SUPPORTIVE IN HER WISHES. WILL CONTINUE TO MONITOR & UPDATE NEEDED.
--- NOTE | 2018-11-09 14:26 | NUR ---
patient to transition to comfort care
--- NOTE | 2018-11-09 14:42 | NUR ---
Spiritual Care note: Met with Sofi yesterday and had a wonderful conversation about her passing. she said she was "ready" and was without fear. Today, she is less responsive--only opening eyes to voice. Large, loving family present at bedside in various degrees of sorrow, gratitude, and love. Facilitated prayer with family at bedside. They are tearful, but appropriate. Complimented family on obvious love. I will remain available.
--- NOTE | 2018-11-09 16:14 | NUR ---
Spiritual Care note: Present with family as pt passed. Prayer provided at [facility]. Family appreciaitive of compassionate care by [facility] RNs and staff. Tearful, but loving. Sofi wrapped in love.
--- NOTE | 2018-11-09 16:18 | NUR ---
FINAL DISCHARGE: PT AT 1605. NO HEART SOUNDS OR RESPIRATIONS HEARD FOR > 1 MIN ON AUSCULTATION OF PT's CHEST & MONITOR SHOWS ASYSTOLE W/ NO CHEST RISE NOTED FOR RESPIRATIONS. FAMILY IS AT BEDSIDE DURING THIS TIME. PT APPEARS COMFORTABLE AT TIME OF PASSING. THE CHOSEN HAS YET TO BE DECIDED, FINAL DISCHARGE HAS BEEN STARTED.
--- NOTE | 2018-11-09 16:21 | NUR ---
pt theraputic time with family
== END 2018-11-09 16:05 | DRG 871 ==
LOC: ER 10:45 → ERHOLD 15:18 → ICUE 15:18
PROVIDERS: Emergency Medicine; Internal Medicine; Internal Medicine Critical Care Medicine; Internal Medicine Pulmonary Disease; ADMIT Family Medicine
PROC: 3E033XZ Introduction of Vasopressor into Peripheral Vein, Percutaneous Approach (ICD-10-PCS; principal; 2018-11-03)
PROC: 02HV33Z Insertion of Infusion Device into Superior Vena Cava, Percutaneous Approach (ICD-10-PCS; 2018-11-03)
DX: A41.51 Sepsis due to Escherichia coli [E. coli] (principal); L89.154 Pressure ulcer of sacral region, stage 4; R65.21 Severe sepsis with septic shock; J18.9 Pneumonia, unspecified organism; J96.21 Acute and chronic respiratory failure with hypoxia; G82.20 Paraplegia, unspecified; Z68.42 Body mass index [BMI] 45.0-49.9, adult; E87.1 Hypo-osmolality and hyponatremia; M86.9 Osteomyelitis, unspecified; J44.0 Chronic obstructive pulmonary disease with (acute) lower respiratory infection; Z51.5 Encounter for palliative care; Z66 Do not resuscitate; I95.9 Hypotension, unspecified; Z99.81 Dependence on supplemental oxygen; I10 Essential (primary) hypertension; E03.9 Hypothyroidism, unspecified; G89.4 Chronic pain syndrome; E66.01 Morbid (severe) obesity due to excess calories; I48.2 Chronic atrial fibrillation; F32.9 Major depressive disorder, single episode, unspecified; Z96.0 Presence of urogenital implants; B37.2 Candidiasis of skin and nail; D64.9 Anemia, unspecified; N31.9 Neuromuscular dysfunction of bladder, unspecified; E87.6 Hypokalemia; F41.9 Anxiety disorder, unspecified; Z74.01 Bed confinement status; Z96.641 Presence of right artificial hip joint; Z87.891 Personal history of nicotine dependence
CPT/HCPCS: 31720; 36415; 36569; 51703; 71045; 72193; 80048; 80053; 80069; 80202; 81001; 82270; 82947; 83605; 83735; 83880; 84100; 84132; 84484; 85014; 85018; 85025; 87040; 87077; 87086; 87186; 87493; 92526; 92610; 93005; 93010; 93971; 94640; 96365; 96366; 96367; 96376; 99285-25; A9270; C1751; C1769; J0690; J1650; J1940; J2060; J2543; J3010; J3370; J3480; J7030; J7040; J7050; J7060; J7120; Q9967